=== PATIENT | female | born 1940 | race Caucasian/White ===

== ENCOUNTER 2021-09-10 16:58 | Emergency (ER) | payer MEDICARE, SELFPAY ==
[2021-09-10 17:07] VITALS: BP 108/67; PULSE 84; RESP 16; TEMP 36.2; O2SAT 98
[2021-09-10 17:19] VITALS: BP 108/67; PULSE 84; RESP 16; TEMP 36.2; O2SAT 98
--- NOTE | 2021-09-10 17:44 | ED.SKABFB ---
HPI - Skin/Abscess/Foreign Bdy General Chief complaint: Skin/Abscess/Foreign Body Stated complaint: wound Source: patient and RN notes reviewed Limitations: no limitations History of Present Illness HPI narrative: The patient, on several routine meds, presents with 2 issues. Patient states she has a 1 day history of urinary malodor, frequency, urgency and dysuria-like prior UTIs she gets several times a year.. Also patient has noticed some eruption with redness and itch from her gluteal crease to her perineum. SHe comments that she is spending more time in a chair on a doughnut cushion with incontinence undergarment, due to recent wrist fracture that is limiting her walking. No fever, abscess/induration, streaking; no hematuria, abdominal pain, increased LBP. Related Data Home Medications Medication Instructions Recorded Confirmed Apresoline 09/10/21 Ativan 09/10/21 Bentyl 09/10/21 Concho 09/10/21 Pepcid 09/10/21 Prozac 09/10/21 Synthroid 09/10/21 Voltaren 09/10/21 amlodipine 09/10/21 aspirin 09/10/21 gabapentin 09/10/21 hydrochlorothiazide 09/10/21 lisinopril 09/10/21 meloxicam 09/10/21 simvastatin 09/10/21 Allergies Allergy/AdvReac Type Severity Reaction Status Date / Time atorvastatin [From Lipitor] Allergy Muscle Pain Verified 09/10/21 17:16 celecoxib [From Celebrex] Allergy Hives Verified 09/10/21 17:16 cortisone Allergy Hives Verified 09/10/21 17:16 furosemide [From Lasix] Allergy Swelling Verified 09/10/21 17:16 latex Allergy Muscle Pain Verified 09/10/21 17:16 methylprednisolone Allergy Rash Verified 09/10/21 17:16 prednisone Allergy Unknown Verified 09/10/21 17:16 Sulfa (Sulfonamide Allergy Hives Verified 09/10/21 17:16 Antibiotics) cephalexin [From Keflex] AdvReac Diarrhea Verified 09/10/21 17:16 ciprofloxacin [From Cipro] AdvReac Diarrhea Verified 09/10/21 17:16 Review of Systems Review of Systems: General/Constitutional: No weight loss,fever Eyes: N0: Redness,discharge Ears/Nose/Throat: No: Epistaxis,ear discharge Respiratory: Denies: Hemoptysis Gastrointestinal: No Vomiting, Bleeding-rectal Skin: No Lumps, REPORTS eruption Neurologic: No Focal Weakness,Sz Hematologic: Denies: Petechiae/Purpura Psychiatric: No: Suicida ideationl All Other Systems: Reviewed and Negative PMFSH Comments At time of signature, agree with nursing past medical, surgical, social and family history. There is no relevant family history pertinent to the presenting complaint Exam Narrative: General Appearance: aged appearing, Conjunctiva clear Ears: External ear normal Nose: Normal nose Mouth/Throat: Normal appearing, Normal lips Neck: Supple Respiratory: Airway patent, No respiratory distress Abdomen: Soft, Non-tender, Musculoskeletal: Left forearm/wrist in cast Skin: Warm, minimally tender, pink inflamed occ excoriated gluteal and perineum skin Neurological: A&O x3, CN II-X intact Psychiatric: Normal mood, Normal affect Course Vital Signs Vital signs: Vital Signs Temperature 97.2 F L 09/10/21 17:07 Pulse Rate 84 09/10/21 17:07 Respiratory Rate 16 09/10/21 17:07 Blood Pressure 108/67 09/10/21 17:07 Pulse Oximetry 98 09/10/21 17:07 Temperature 97.2 F L 09/10/21 17:19 Pulse Rate 84 09/10/21 17:19 Respiratory Rate 16 09/10/21 17:19 Blood Pressure 108/67 09/10/21 17:19 Pulse Oximetry 98 09/10/21 17:19 MDM - Skin/Abscess/Foreign Bdy Lab Data Labs: Urine Glucose Negative Reference Range: Negative Urine Bilirubin Negative Reference Range: Negative Urine Ketone Negative Reference Range: Negative Urine Specific [place] 1.015 Reference Range:1.001-1.035
== END 2021-09-10 17:45 | disposition home or self-care (01) ==
PROVIDERS: Emergency Provider Emergency Medicine
DX: N30.90 Cystitis, unspecified without hematuria (principal); L30.4 Erythema intertrigo; I10 Essential (primary) hypertension; M19.90 Unspecified osteoarthritis, unspecified site
CPT/HCPCS: 81003; 87077; 87086; 87186; 99213; G0463

== ENCOUNTER 2023-03-08 13:33 | Inpatient (IN) | payer MEDICARE, SELFPAY ==
[2023-03-08] VITALS (10 sets, daily range): BP systolic 111–143; BP diastolic 50–101; PULSE 57–73; RESP 12–20; TEMP 36.6–37.3; O2SAT 96–100; BMI 27.6
--- NOTE | ~2023-03-08 | XR_ITS ---
Portable chest x-ray Comparison: None Clinical History: Covid, cough, weakness Findings: Lungs are clear, without focal consolidation or pleural effusion. Cardiomediastinal silho uette is unremarkable. Bones and soft tissues are unremarkable. Impression: Clear lungs. Reviewed, dictated and finalized at location . Impression: Clear lungs.
--- NOTE | ~2023-03-08 | CT_ITS ---
EXAMINATION: CT brain wo con DATE: 03/13/2023 08:18 INDICATION: Stroke. Hyponatremia. TECHNIQUE: Computed tomography (CT) of the head was performed without intravenous contrast. The mA wa s adjusted according to patient size. Iterative reconstruction technique was employed. The dose-lengt h product was 605.33 mGy-cm. COMPARISON: None FINDINGS: There are scattered areas of low attenuation in the cerebral white matter and prakash. There i s no intracranial hemorrhage, acute infarction, or abnormal intracranial mass lesion. The ventricles are normal in size. There is mucosal thickening in the paranasal sinuses. There are likely changes of right ocular lens replacement surgery. The mastoid air cells are normal. IMPRESSION: 1. Low attenuation in the prakash, which may be seen with chronic small vessel ischemic disease and/or o smotic demyelination. Consider brain MRI. 2. Moderate nonspecific cerebral white matter disease, which likely represents chronic small vessel i schemic disease. Reviewed, dictated and finalized at location A. IMPRESSION: 1. Low attenuation in the prakash, which may be seen with chronic small vessel isc hemic disease and/or osmotic demyelination. Consider brain MRI. 2. Moderate nonspecific cerebral white matter disease, which likely represents chronic small vessel ischemic disease.
--- NOTE | ~2023-03-08 | MR_ITS ---
EXAMINATION: MR brain/brain stem wo/w con DATE: 03/13/2023 18:18 INDICATION: Osmotic demyelination. Hyponatremia. TECHNIQUE: Magnetic resonance imaging (MRI) of the brain and brainstem was performed without and with 14 mL MultiHance intravenous contrast. COMPARISON: Head CT 03/13/2023 FINDINGS: There are scattered areas of nonspecific increased T2-weighted signal intensity in the cere bral white matter. There is mild increased T2-weighted signal intensity in the prakash that is not out o f proportion to the cerebral white matter disease and does not spare the corticospinal tracts. There is no intracranial hemorrhage, acute infarction, or abnormal intracranial mass lesion. The ventricles are normal in size. There is mucosal thickening in the paranasal sinuses. There are likely changes o f right ocular lens replacement surgery. The mastoid air cells are normal. IMPRESSION: 1. Moderate nonspecific cerebral white matter disease and pontine disease, which likely represents ch ronic small vessel ischemic disease. Reviewed, dictated and finalized at location E. IMPRESSION: 1. Moderate nonspecific cerebral white matter disease and pontine disease, whic h likely represents chronic small vessel ischemic disease.
--- NOTE | 2023-03-08 13:52 | ECG_ITS ---
Measurements Intervals [place] Rate: 60 P: 55 DE: 207 QRS: -38 QRSD: 136 T: 50 QT: 466 QTc: 468 Interpretive Statements SINUS RHYTHM LEFT AXIS DEVIATION LEFT BUNDLE BRANCH BLOCK ABNORMAL ECG NO PREVIOUS ECG AVAILABLE FOR COMPARISON Electronically Signed On 03-09-2023 16:49:25 CDT by Vimal Bearden M.D.
[2023-03-08 14:50] LABS: Basophils Percent Auto 0.7 % (0.2-1.2); Eosinophils Percent Auto 0.4 % (0-4.4); Hematocrit 33.2 % (37.0-47.0); Hemoglobin 11.3 g/dL (12.0-15.0); Immature Granulocyte Absolute 0.01 K/mm3 (0.00-0.031); Immature Granulocyte Percent A 0.4 % (0-0.5); Lymphocytes Absolute Auto 0.96 K/mm3 (0.9-3.2); Mean Corpuscular Hemoglobin 29.4 pg (26-34); Mean Corpuscular Volume 86.2 fl (80-100); Mean Platelet Volume 8.7 fl (7.4-10.4); Monocytes Absolute Auto 0.3 K/mm3 (0.1-0.6); Monocytes Percent Auto 11.3 % (2.6-8.5); Neutrophils Absolute Auto 1.4 K/mm3 (1.3-6.7); Neutrophils Percent Auto 52.2 % (45.5-73.1); Platelet Count Result 285 k/mm3 (150-375); Red Blood Count 3.85 M/mm3 (4.2-5.4); Red Cell Distribution Width 14.7 % (11.5-14.5); White Blood Count 2.7 K/mm3 (4.5-10.0)
--- NOTE | 2023-03-08 15:31 | ED.GENADULT ---
HPI - General Adult General Chief complaint: Weakness Stated complaint: weakness, incontinence History of Present Illness HPI narrative: 82-year-old female presented to the emergency department for evaluation of increased generalized weakness and increased urinary symptoms. Approximately 3 weeks ago patient was admitted to [facility] for sepsis hypokalemia and urinary tract infection. Patient became very deconditioned and needed to be admitted to [facility] for rehab. Family states he was there for approximately 2 weeks and was discharged yesterday. Family feels that the patient was still feeling too weak when she was discharged. Patient states she is still having symptoms of dysuria that are intermittent. Patient denies any nausea vomiting or abdominal pain but states she has had decreased p.o. intake. Related Data Home Medications Medication Instructions Recorded Confirmed amlodipine 10 mg tablet mg 03/08/23 aspirin 81 mg chewable tablet 81 mg PO DAILY 03/08/23 03/08/23 calcium carbonate 200 mg calcium 200 mg PO PRN 03/08/23 03/08/23 (500 mg) chewable tablet (Antacid (calcium carbonate)) cholecalciferol (vitamin D3) 25 25 mcg PO DAILY 03/08/23 03/08/23 mcg (1,000 unit) capsule (Vitamin D3) dicyclomine 10 mg capsule 10 mg PO QID 03/08/23 03/08/23 famotidine 40 mg tablet mg 03/08/23 ferrous sulfate 325 mg (65 mg 325 mg PO BID 03/08/23 03/08/23 iron) tablet gabapentin 300 mg capsule mg 03/08/23 03/08/23 hydralazine 25 mg tablet mg 03/08/23 hydrocodone 10 mg-acetaminophen tablet 03/08/23 325 mg tablet levothyroxine 137 mcg tablet mcg 03/08/23 lisinopril 20 mg tablet mg 03/08/23 nitroglycerin 400 mcg/spray 1 spray translingual ONCE 03/08/23 03/08/23 translingual aerosol nystatin 100,000 unit/gram topical topical 03/08/23 cream sertraline 25 mg tablet 25 mg PO DAILY 03/08/23 03/08/23 simvastatin 40 mg tablet mg 03/08/23 Allergies Allergy/AdvReac Type Severity Reaction Status Date / Time atorvastatin [From Lipitor] Allergy Muscle Pain Verified 03/08/23 17:59 celecoxib [From Celebrex] Allergy Hives Verified 03/08/23 17:59 cortisone Allergy Hives Verified 03/08/23 17:59 furosemide [From Lasix] Allergy Swelling Verified 03/08/23 17:59 latex Allergy Muscle Pain Verified 03/08/23 17:59 methylprednisolone Allergy Rash Verified 03/08/23 17:59 prednisone Allergy Unknown Verified 03/08/23 17:59 Sulfa (Sulfonamide Allergy Hives Verified 03/08/23 17:59 Antibiotics) cephalexin [From Keflex] AdvReac Diarrhea Verified 03/08/23 17:59 ciprofloxacin [From Cipro] AdvReac Diarrhea Verified 03/08/23 17:59 Review of Systems Review of Systems: All systems reviewed & are unremarkable except as noted in HPI and below PMFSH Past Medical History Medical History (Updated 03/08/23 @ 17:51 by Abbey Campos PA-C) Dyslipidemia Gastroesophageal reflux disease Hypertension Hypothyroidism Social History Social History Smoking status: Former smoker Alcohol intake: never Substance use: never Lack of Transportation: No Lack of Food: Never True Current Housing: I Have Housing Concerned About Future Housing: No Difficulty Paying Gas/Electric Bills: No Difficulty Paying for Meds: No Currently Unemployed: No Education: High School Diploma/GED Difficulty w/ Childcare or Family Care: No Spiritual care concerns: No Exam Narrative: APPEARANCE: Ill-appearing HEAD: normocephalic, atraumatic. EYES: PERRLA/EOMI, conjunctivae clear. NOSE: Normal no drainage NECK: Supple. No adenopathy, no masses. RESPIRATORY: Airway patent, respirations nonlabored. Clear to auscultation bilaterally, no rales, rhonchi, wheezing. CARDIOVASCULAR: Regular rate and rhythm without murmurs rubs or gallops. ABDOMINAL: Soft, nontender, nondistended, normal bowel sounds MUSCULOSKELETAL: Moves all extremities. Strength/ROM intact, No edema, No calf tenderness. NEURO: Alert. Cranial nerves II
[2023-03-08 15:37] LABS: Appearance Urine Cloudy (Clear); Bacteria Urine 4+ /hpf; Bilirubin Urine Negative (Negative); Blood Urine Negative (Negative); Color Urine Yellow (Yellow); Glucose Urine UA Negative (Negative); Ketones Urine Negative (Negative); Leukocyte Esterase Ur Trace LEU/UL (Negative); Nitrate Urine Negative (Negative); Non Pathogenic Casts 0-2; Protein Urine Negative (Negative); RBC Urine 0-2 /hpf (0-2); Squamous Epithelial Cell Urine None seen /hpf (Few); Urobilinogen Urine 0.2 mg/dL (<2.0); WBC Urine 0-5 /hpf
[2023-03-08 15:40] LABS: Add Urine Microscopic? YES
[2023-03-08 16:01] LABS: Alanine Aminotransferase 20 U/L (6-35); Albumin Level 3.6 g/dL (3.5-5.1); Alkaline Phosphatase 77 U/L (38-126); Anion Gap 5 mmol/L (8-16); Aspartate Amino Transferase 34 U/L (14-36); Bilirubin,Total 0.5 mg/dL (0.2-1.3); Blood Urea Nitrogen 12 mg/dL (7-17); Carbon Dioxide 28 mmol/L (22-30); Chloride 89 mmol/L (98-107); Estimated CRCL calculation 76 ml/min; Estimated Glomerular Filt Rate > 60; Glucose 104 mg/dL (65-110); Potassium 3.9 mmol/L (3.4-5.0); Sodium 122 mmol/L (137-145)
[2023-03-08 16:23] LABS: Influenza A QL RT-PCR Negative (Negative); Influenza B QL RT-PCR Negative (Negative); RSV RNA, RT-PCR Negative (Negative); SARS-CoV-2 RNA PCR Positive
[2023-03-08] MEDS: SODIUM CHLORIDE 0.9% IV 1,000 ML 100 ML IV CONT (17:52)
--- NOTE | 2023-03-08 18:00 | PM.IMHP ---
H&P: HPI History of Present Illness Date/Time: 03/08/23 18:00 Chief Complaint: Weakness. Narrative: This is an 82-year-old female with hypertension, hyperlipidemia, hypothyroidism, anemia, and GERD who presented to the emergency department from home for evaluation of weakness. Patient provides the following history. Her daughter Nohemy provides additional information with the patient's permission. She was hospitalized at [facility] several weeks ago with urosepsis and she was discharged to [facility] for rehab. She was discharged to the care of her daughter yesterday and Nohemy feels as though the patient was sent home from rehab to [place]. The patient typically ambulates with a walker but has not even wanted to try to get up due to generalized malaise and weakness. She has been eating okay but has not been drinking much in the way of fluids. She still has a bit of dysuria but nothing significant. Over the last several days she has developed a headache, a mild nonproductive cough, and she has been having body aches. She denies fever, neck ache, sinus congestion, sore throat, chest pain, shortness a breath, vomiting, and diarrhea. Vital signs were stable on arrival to the emergency department. Labs were significant for a WBC count of 2.7, hemoglobin 11.3, sodium 122, potassium 3.9, chloride 89, BUN 12, creatinine 0.50, normal LFTs. Urine was positive for leukocyte esterase, 0 to 5 WBC, and 4+ bacteria. She was negative for influenza and RSV but did test positive for SARS-CoV-2 by PCR. She is being admitted in this setting for further treatment and evaluation of hyponatremia and supportive care for COVID. Review of Systems Review of Systems: Twelve systems were reviewed. She has not had a documented fever. No focal weakness or paresthesias. No facial droop or difficulty speaking or swallowing. She denies chest pain pleuritic pain. No nausea or sweats. Denies diarrhea. Except as documented, all other systems were reviewed and are negative. [facility] Past Medical History Medical History (Updated 03/08/23 @ 21:54 by Abbey Campos PA-C) Dyslipidemia Gastroesophageal reflux disease Hypertension Hypothyroidism Surgical History Surgical History (Updated 03/08/23 @ 21:46 by Abbey Campos PA-C) History of appendectomy History of cholecystectomy History of hysterectomy Family History Family History (Updated 03/08/23 @ 21:46 by Abbey Campos PA-C) Other Hypertension Social History Social History (Updated 03/08/23 @ 21:46 by Abbey Campos PA-C) Social History: Surrogate medical decision maker: Nohemy Carbajal, daughter. Code status: Full code. Smoking status: Former smoker Alcohol intake: never Substance use: never Lack of Transportation: No Lack of Food: Never True Current Housing: I Have Housing Concerned About Future Housing: No Difficulty Paying Gas/Electric Bills: No Difficulty Paying for Meds: No Currently Unemployed: No Education: High School Diploma/GED Difficulty w/ Childcare or Family Care: No Additional living arrangements comments: Currently staying with daughter Nohemy. Spiritual care concerns: No Meds Home Medications and Allergies Home Medications Medication Instructions Recorded Confirmed Type acetaminophen 650 mg tablet 650 mg PO Q4H PRN Pain (Scale 03/08/23 03/08/23 History Score 1-3) amlodipine 10 mg tablet 10 mg DAILY 03/08/23 03/08/23 History aspirin 81 mg chewable tablet 81 mg PO DAILY 03/08/23 03/08/23 History calcium carbonate 200 mg calcium 200 mg PO TID PRN Indigestion 03/08/23 03/08/23 History (500 mg) chewable tablet (Antacid (calcium carbonate)) cholecalciferol (vitamin D3) 25 50 mcg PO DAILY 03/08/23 03/08/23 History mcg (1,000 unit) capsule (Vitamin D3) clobetasol 0.05 % topical cream 1 applic topical BID 03/08/23 03/08/23 History dicyclomine 10 mg capsule 10 mg PO QID 03/08/23 03/08/23 History fa
--- NOTE | 2023-03-08 19:47 | ADMGEN ---
This patient, Sharon Chao, was admitted to Medical Room 245-. Patient/family oriented to hospital policies and general routines including ID bracelet, bed and alarms, visiting hours, pain management, procedures, bathroom and other care routines, personal items, smoking policy, room service/diet, and visiting hours. Information on how to activate the Rapid Response Team has been discussed. Patient/Family are encouraged to report perceived risks to care and to ask questions if they do not understand what they are told or what they should do.
[2023-03-08 22:16] LABS: Anion Gap 5 mmol/L (8-16); Blood Urea Nitrogen 10 mg/dL (7-17); Calcium 8.1 mg/dL (8.4-10.2); Carbon Dioxide 29 mmol/L (22-30); Chloride 90 mmol/L (98-107); Estimated CRCL calculation 75 ml/min; Estimated Glomerular Filt Rate > 60; Glucose 87 mg/dL (65-110); Potassium 4.1 mmol/L (3.4-5.0); Sodium 124 mmol/L (137-145)
[2023-03-08 22:19] LABS: CRP 1.3 mg/dL (<1.0)
[2023-03-08] MEDS: lisinopriL 20 MG TABLET PO (23:38)
[2023-03-08] MEDS: FAMOTIDINE 20 MG TABLET 40 MG PO (23:38)
[2023-03-08] MEDS: hydrALAZINE HCL 25 MG TABLET PO (23:38)
[2023-03-08] MEDS: GABAPENTIN 300 MG CAPSULE PO (23:38)
[2023-03-08] MEDS: DICYCLOMINE HCL 10 MG CAPSULE PO (23:38)
[2023-03-08] MEDS: SERTRALINE HCL 25 MG TABLET PO (23:39)
[2023-03-08] MEDS: MICONAZOLE NITRATE 2% CREAM 30 GM TUBE 1 APPLIC TOPICAL (23:39)
[2023-03-08] MEDS: HYDROcodone/acetaminophen (*CRX) 10-325 MG TABLET 1 TAB PO (23:42)
[2023-03-09] VITALS (13 sets, daily range): BP systolic 94–128; BP diastolic 48–67; PULSE 56–86; RESP 12–18; TEMP 36.2–36.9; O2SAT 96–100
[2023-03-09 00:03] LABS: Creatinine Urine 20.9 mg/dL; Urea Random Urine 207 MG/DL
[2023-03-09 00:06] LABS: Sodium Urine Random 108 meq/L
[2023-03-09] MEDS: SODIUM CHLORIDE 0.9% IV 1,000 ML 75 ML IV CONT ×2 (04:45→18:42)
[2023-03-09] MEDS: LEVOTHYROXINE SODIUM 25 MCG TABLET PO (04:46)
[2023-03-09] MEDS: LEVOTHYROXINE SODIUM 112 MCG TABLET PO (04:46)
[2023-03-09 06:33] LABS: Hematocrit 28.7 % (37.0-47.0); Hemoglobin 9.5 g/dL (12.0-15.0); Mean Corpuscular HGB Conc 33.1 g/dl (32-36); Mean Corpuscular Hemoglobin 28.3 pg (26-34); Mean Corpuscular Volume 85.4 fl (80-100); Mean Platelet Volume 9.2 fl (7.4-10.4); Platelet Count Result 254 k/mm3 (150-375); Red Blood Count 3.36 M/mm3 (4.2-5.4); Red Cell Distribution Width 14.6 % (11.5-14.5); White Blood Count 2.5 K/mm3 (4.5-10.0)
[2023-03-09 06:40] LABS: Anion Gap 4 mmol/L (8-16); Blood Urea Nitrogen 7 mg/dL (7-17); Calcium 7.7 mg/dL (8.4-10.2); Carbon Dioxide 28 mmol/L (22-30); Chloride 93 mmol/L (98-107); Estimated CRCL calculation 75 ml/min; Estimated Glomerular Filt Rate > 60; Glucose 82 mg/dL (65-110); Potassium 4.2 mmol/L (3.4-5.0); Sodium 125 mmol/L (137-145)
[2023-03-09] MEDS: SIMVASTATIN 20 MG TABLET 40 MG PO (10:22)
[2023-03-09] MEDS: FAMOTIDINE 20 MG TABLET 40 MG PO ×2 (10:22→17:14)
[2023-03-09] MEDS: CHOLECALCIFEROL 1,000 UNITS TABLET 2000 UNITS PO (10:22)
[2023-03-09] MEDS: ASPIRIN 81 MG CHEWABLE TABLET PO (10:22)
[2023-03-09] MEDS: lisinopriL 20 MG TABLET PO ×2 (10:23→17:15)
[2023-03-09] MEDS: SODIUM CHLORIDE 1 GM TABLET PO (10:23)
[2023-03-09] MEDS: GABAPENTIN 300 MG CAPSULE PO ×3 (10:23→17:14)
[2023-03-09] MEDS: hydrALAZINE HCL 25 MG TABLET PO (10:23)
[2023-03-09] MEDS: FERROUS SULFATE 324 MG TABLET PO ×2 (10:23→17:13)
[2023-03-09] MEDS: DICYCLOMINE HCL 10 MG CAPSULE PO ×4 (10:23→20:09)
[2023-03-09] MEDS: CLOBETASOL PROPIONATE 0.05% CREAM 15 GM 1 APPLIC TOPICAL ×2 (10:25→17:13)
[2023-03-09] MEDS: MICONAZOLE NITRATE 2% CREAM 30 GM TUBE 1 APPLIC TOPICAL ×2 (10:25→17:14)
[2023-03-09] MEDS: amLODIPine BESYLATE 5 MG TABLET 10 MG BY MOUTH (10:27)
[2023-03-09] MEDS: HYDROcodone/acetaminophen (*CRX) 10-325 MG TABLET 1 TAB PO ×3 (10:35→20:09)
--- NOTE | 2023-03-09 12:00 | PM.IMPN ---
Progress Note: A&P Assessment and Plan (1) Hyponatremia: Code(s): E87.1 - Hypo-osmolality and hyponatremia Status: Acute Assessment and Plan: She reportedly had problems with hyponatremia when hospitalized at [place] last month and was started on sodium tablets. She looks dry on exam and will be cautiously hydrated with close monitoring of volume status and electrolytes. TSH 3.1, urine and serum osmolalities pending FENa 2.1 indicating a intrinsic cause. Patient recieving IV fluids. Trend Sodium (2) COVID: Code(s): U07.1 - COVID-19 Status: Acute Assessment and Plan: Supportive care. She has no oxygen requirement thus no indication for dexamethasone or remdesivir. (3) Generalized weakness: Code(s): R53.1 - Weakness Status: Acute Assessment and Plan: Secondary to a combination of the above. No focal findings on exam. PT/OT consulted. (4) Hypertension: Code(s): I10 - Essential (primary) hypertension Status: Acute Assessment and Plan: Blood pressures were reviewed and they are stable. Her antihypertensives will be reviewed and resumed as appropriate. (5) Abnormal urinalysis: Code(s): R82.90 - Unspecified abnormal findings in urine Status: Acute Assessment and Plan: UA shows trace leukocyte esterase and 4+ bacteria, 0-5 white blood cells were noted on microscopy. Hold on antibiotics for now pending urine culture. Subjective Date/time seen: 03/09/23 12:00 Interval history: Patient up to chair doing well. She has no complaints at this time. Awaiting urine culture and treating hyponatremia. Objective Data Vital Signs Vital Signs: Vital Signs - 24 hr 03/08/23 13:51 03/08/23 15:37 03/08/23 17:01 Temperature 99.1 F Pulse Rate 64 57 L 63 Respiratory Rate 18 13 14 Blood Pressure 122/53 L 111/94 H 143/54 H Pulse Oximetry 98 100 96 Oxygen Delivery Room Air 03/08/23 17:46 03/08/23 18:02 03/08/23 18:16 Temperature Pulse Rate 62 73 72 Respiratory Rate 12 12 19 Blood Pressure 143/60 H 131/101 H 136/72 Pulse Oximetry 97 96 Oxygen Delivery 03/08/23 18:31 03/08/23 19:35 03/08/23 20:00 Temperature 98.5 F Pulse Rate 68 64 61 Respiratory Rate 19 17 Blood Pressure 135/50 L 115/65 Pulse Oximetry 99 98 Oxygen Delivery 03/08/23 20:00 03/08/23 23:36 03/09/23 00:00 Temperature 97.8 F Pulse Rate 67 64 Respiratory Rate 20 Blood Pressure 122/57 L Pulse Oximetry 100 Oxygen Delivery Room Air 03/09/23 04:00 03/09/23 05:36 03/09/23 08:00 Temperature 98.2 F Pulse Rate 59 L 61 60 Respiratory Rate 18 Blood Pressure 114/51 L Pulse Oximetry 99 Oxygen Delivery 03/09/23 08:22 03/09/23 10:26 03/09/23 10:25 Temperature Pulse Rate 73 Respiratory Rate 14 Blood Pressure 115/60 Pulse Oximetry 100 Oxygen Delivery Room Air Room Air Intake/Output Intake/Output: Intake & Output 03/06/23 03/07/23 03/08/23 03/09/23 23:59 23:59 23:59 23:59 Intake Total 1450 Output Total 1950 750 Balance -1950 700 Meds/Results Medications: Active Medications Generic Name Dose Route Start Last Admin Trade Name Freq PRN Reason Stop Dose Admin Acetaminophen 650 mg 03/08/23 21:51 Acetaminophen 325 Mg Tablet PO Q6H PRN Mild Pain (1-3) or Fever Hydrocodone Bitart/Acetaminophen 1 tab 03/08/23 21:55 03/09/23 10:35 Hydrocodone/Acetaminophen (*Crx) 10-325 Mg Tablet PO 1 tab TID PRN Administration Pain (Scale Score 4-6) Amlodipine Besylate 10 mg 03/09/23 09:00 03/09/23 10:27 Amlodipine Besylate 5 Mg Tablet BY MOUTH 10 mg DAILY ANNY Administration Aspirin 81 mg 03/09/23 09:00 03/09/23 10:22 Aspirin 81 Mg Chewable Tablet PO 81 mg DAILY ANNY Administration Calcium Carbonate 200 mg 03/08/23 21:55 Calcium Carbonate (Tums) 500 Mg (200 Mg Elemental)
[2023-03-09 13:16] LABS: Sodium 123 mmol/L (137-145)
[2023-03-09] MEDS: polyethylene glycoL 3350 17 GM POWD.PACK PO (13:17)
--- NOTE | 2023-03-09 14:01 | PCCCNOTE ---
On 03/09/23, the student, [Amie Bacon ], provided care and completed [facility] documentation on this patient. I have reviewed the student's documentation and agree with the findings.
[2023-03-09 19:16] LABS: Sodium 125 mmol/L (137-145)
[2023-03-09] MEDS: SERTRALINE HCL 25 MG TABLET PO (20:09)
[2023-03-10] VITALS (14 sets, daily range): BP systolic 103–141; BP diastolic 49–73; PULSE 53–72; RESP 14–20; TEMP 36.3–36.6; O2SAT 96–100
[2023-03-10 01:24] LABS: Sodium 126 mmol/L (137-145)
[2023-03-10 05:48] LABS: Basophils Percent Auto 0.3 % (0.2-1.2); Eosinophils Absolute Auto 0.1 K/mm3 (0-0.3); Eosinophils Percent Auto 2.1 % (0-4.4); Hematocrit 29.8 % (37.0-47.0); Hemoglobin 9.7 g/dL (12.0-15.0); Immature Granulocyte Absolute 0.01 K/mm3 (0.00-0.031); Immature Granulocyte Percent A 0.3 % (0-0.5); Lymphocytes Absolute Auto 1.11 K/mm3 (0.9-3.2); Mean Corpuscular HGB Conc 32.6 g/dl (32-36); Mean Corpuscular Hemoglobin 28.7 pg (26-34); Mean Corpuscular Volume 88.2 fl (80-100); Mean Platelet Volume 9.2 fl (7.4-10.4); Monocytes Absolute Auto 0.3 K/mm3 (0.1-0.6); Monocytes Percent Auto 8.9 % (2.6-8.5); Neutrophils Absolute Auto 1.8 K/mm3 (1.3-6.7); Neutrophils Percent Auto 54.4 % (45.5-73.1); Platelet Count Result 236 k/mm3 (150-375); Red Blood Count 3.38 M/mm3 (4.2-5.4); Red Cell Distribution Width 14.8 % (11.5-14.5); White Blood Count 3.3 K/mm3 (4.5-10.0)
[2023-03-10 05:54] LABS: Alanine Aminotransferase 20 U/L (6-35); Albumin Level 3.3 g/dL (3.5-5.1); Alkaline Phosphatase 78 U/L (38-126); Anion Gap 4 mmol/L (8-16); Aspartate Amino Transferase 28 U/L (14-36); Bilirubin,Total 0.4 mg/dL (0.2-1.3); Blood Urea Nitrogen 5 mg/dL (7-17); Calcium 7.7 mg/dL (8.4-10.2); Carbon Dioxide 26 mmol/L (22-30); Chloride 97 mmol/L (98-107); Estimated CRCL calculation 75 ml/min; Estimated Glomerular Filt Rate > 60; Glucose 76 mg/dL (65-110); Sodium 127 mmol/L (137-145)
[2023-03-10] MEDS: LEVOTHYROXINE SODIUM 112 MCG TABLET PO (05:56)
[2023-03-10] MEDS: HYDROcodone/acetaminophen (*CRX) 10-325 MG TABLET 1 TAB PO ×2 (05:56→18:00)
[2023-03-10] MEDS: LEVOTHYROXINE SODIUM 25 MCG TABLET PO (05:56)
[2023-03-10] MEDS: SODIUM CHLORIDE 1 GM TABLET PO (08:14)
[2023-03-10] MEDS: DICYCLOMINE HCL 10 MG CAPSULE PO ×4 (08:14→21:58)
[2023-03-10] MEDS: lisinopriL 20 MG TABLET PO ×2 (08:14→17:55)
[2023-03-10] MEDS: FAMOTIDINE 20 MG TABLET 40 MG PO ×2 (08:14→17:55)
[2023-03-10] MEDS: FERROUS SULFATE 324 MG TABLET PO ×2 (08:14→17:55)
[2023-03-10] MEDS: CHOLECALCIFEROL 1,000 UNITS TABLET 2000 UNITS PO (08:14)
[2023-03-10] MEDS: ASPIRIN 81 MG CHEWABLE TABLET PO (08:14)
[2023-03-10] MEDS: GABAPENTIN 300 MG CAPSULE PO ×3 (08:15→17:55)
[2023-03-10] MEDS: amLODIPine BESYLATE 5 MG TABLET 10 MG BY MOUTH (08:17)
[2023-03-10] MEDS: SIMVASTATIN 20 MG TABLET 40 MG PO (08:18)
[2023-03-10] MEDS: hydrALAZINE HCL 25 MG TABLET PO ×3 (08:18→17:55)
[2023-03-10] MEDS: MICONAZOLE NITRATE 2% CREAM 30 GM TUBE 1 APPLIC TOPICAL ×2 (08:18→17:55)
[2023-03-10] MEDS: CLOBETASOL PROPIONATE 0.05% CREAM 15 GM 1 APPLIC TOPICAL ×2 (08:18→17:55)
[2023-03-10] MEDS: SODIUM CHLORIDE 0.9% IV 1,000 ML 75 ML IV CONT ×2 (08:18→22:00)
[2023-03-10] MEDS: polyethylene glycoL 3350 17 GM POWD.PACK PO (08:19)
[2023-03-10] MEDS: BISACODYL 10 MG SUPPOSITORY RECTAL (11:26)
--- NOTE | 2023-03-10 15:16 | PM.IMPN ---
Progress Note: A&P Assessment and Plan (1) Hyponatremia: Code(s): E87.1 - Hypo-osmolality and hyponatremia Status: Acute Assessment and Plan: Acute versus acute on chronic hyponatremia. She reportedly had problems with hyponatremia when hospitalized at [place] last month and was started on sodium tablets. She looks dry on exam and will be cautiously hydrated with close monitoring of volume status and electrolytes. TSH 3.1, urine sodium 108 and serum osmolality pending Patient receiving IV fluids. sodium chloride tablet 1 gram daily continued. Patient was taking this upon admission. Trend sodium- gradually increasing. Check am cortisol and ACTH. Patient does take chronic opioid medications. Documented oral intake is not excessive, ~1800 mL/24 hours. Continue to monitor I/O and consider fluid restriction if intake appears >2L (2) COVID: Code(s): U07.1 - COVID-19 Status: Acute Assessment and Plan: Supportive care. She has no oxygen requirement thus no indication for dexamethasone or remdesivir. She reports possible exposure in the last week, but is vague in her answers regarding this. She endorses prior COVID19 vaccination, but is unsure of her booster status. Recommend COVID19 booster if not had in the past 6 month. (3) Generalized weakness: Code(s): R53.1 - Weakness Status: Acute Assessment and Plan: Secondary to a combination of the above. No focal findings on exam. PT/OT consulted. Likely secondary to hyponatremia. (4) Hypertension: Code(s): I10 - Essential (primary) hypertension Status: Chronic Assessment and Plan: Blood pressures stable Continue amlodipine, hydralazine, and lisinopril as BP tolerates. (5) Acute cystitis without hematuria: Code(s): N30.00 - Acute cystitis without hematuria Status: Acute Assessment and Plan: UA shows trace leukocyte esterase and 4+ bacteria, 0-5 white blood cells were noted on microscopy. Patient with acute urinary retention and suprapubic pain on exam. Urine culture with pseumomonas aeruginosa growth >100,000 CFU Cipro allergy noted and family reports reaction is diarrhea only. No hives, pruritus, or anaphylaxis with prior use. Start Levaquin 750 mg PO daily x 5 days for acute cystitis. (6) Acute urinary retention: Code(s): R33.8 - Other retention of urine Status: Acute Assessment and Plan: bladder scan >1300 mL on admission with patient c/o pain and tenderness on exam. Denies prior history of urinary retention. Most likely associated with acute UTI. Indwelling stock catheter continued. Voiding trial in 24-48 hours after antibiotic therapy initiated. Time Spent With Patient Time with patient: 25 - 35 minutes Subjective Date/time seen: 03/10/23 15:16 She has a cough, but no sputum, SOB or chest pain. She is tired and feels constipated. No unilateral extremity weakness, speech changes, vision changes, CLAY, abd pain, N/V, and flank pain. Stock catheter was placed last night for acute retention. She reports never having issues with her urination at all. Review of Systems Review of Systems: All systems reviewed & are unremarkable except as noted in HPI and below Exam Narrative: General: No acute distress. Lying in bed. Nontoxic appearing. HEENT: Normocephalic, atraumatic. PERRL, EOMI. Sclera anicteric. Moist mucous membranes. Neck: Supple. No JVD. Respiratory: Respirations are nonlabored and she is speaking in full sentences. Lungs are clear to auscultation bilaterally. Cardiovascular: Regular rate and rhythm with S1-S2. No murmur, gallop or rub. Gastrointestinal: Abdomen is soft, obese and nondistended with positive bowel sounds. There is some bruising throughout the lower abdomen, presumably from heparin injections with her recent hospitalization. Mildly tender to palpation in the suprapub
[2023-03-10] MEDS: SENNA/DOCUSATE SODIUM TABLET 2 TAB PO (21:58)
[2023-03-10] MEDS: SERTRALINE HCL 25 MG TABLET PO (21:58)
[2023-03-11] VITALS (13 sets, daily range): BP systolic 115–133; BP diastolic 51–67; PULSE 59–75; RESP 18–20; TEMP 36.1–37.1; O2SAT 93–99
--- NOTE | 2023-03-11 | ECHO_ITS ---
Patient Info Name: Sharon Chao Age: 82 years : 1940 Gender: Female Ht: 65 in Wt: 165 lbs BSA: 1.87 m2 HR: 69 bpm BP: 134 / 52 mmHg Heart Rhythm: Sinus Rhythm Technical Quality: Fair Exam Date: 03/11/2023 1:34 PM Exam Location: [facility] Pulmonary Patient Status: Outpatient Admit Date: 03/08/2023 Staff Ordering Physician: Lindsay Stevens APRN President & Founder: Khadra Alfaro RDCS Attending Provider: Janice Almeida MD Referring Physician: Hilda ZIMMERMAN; Exam Type: CA echo doppler color flow Study Info Indications - abnormal ecg Complete two-dimensional, color flow and Doppler transthoracic echocardiogram is performed. Summary 1. Technically difficult study with limited views. 2. Left ventricular chamber dimension is normal. 3. Left ventricular systolic function is mildly reduced, estimated at 40-45%. 4. Left ventricular septal wall motion is abnormal with septal motion related to bundle branch block. 5. The left ventricular diastolic function is grade I diastolic dysfunction. 6. Right ventricular systolic function is normal. 7. There is mild mitral valve regurgitation. 8. There is mild tricuspid valve regurgitation. 9. There is moderate aortic atherosclerosis. 10. Normal inferior vena cava with >50% collapse upon inspiration consistent with normal right atrial pressure, 3 mmHg. Left Ventricle Left ventricular chamber dimension is normal. Left ventricular systolic function is mildly reduced, estimated at 40-45%. There is no increased left ventricular wall thickness. Left ventricular septal wall motion is abnormal with septal motion related to bundle branch block. The left ventricular diastolic function is grade I diastolic dysfunction. Right Ventricle Right ventricular chamber dimension is normal. Right ventricular systolic function is normal. Left Atria Left atrial chamber dimension is normal. Right Atria Right atrial chamber dimension is normal. Atrial Septum Intact interatrial septum visualized by color flow imaging. Aortic Valve The aortic valve is not well visualized. There is no aortic valve stenosis. There is no aortic valve regurgitation. There is moderate aortic valve calcification. Pulmonic Valve The pulmonic valve is not well visualized. Mitral Valve The mitral valve has thickened leaflets. There is mild mitral valve regurgitation. Tricuspid Valve There is mild tricuspid valve regurgitation. Pericardium/Pleural There is no pericardial effusion. Inferior Vena Cava Normal inferior vena cava with >50% collapse upon inspiration consistent with normal right atrial pressure, 3 mmHg. Aorta The aortic root size at the sinus of Valsalva is normal. There is moderate aortic atherosclerosis. Left Ventricular Outflow Tract Name Value Normal LVOT 2D LVOT Diameter 2.0 cm LVOT Doppler LVOT Peak Gradient 3 mmHg LVOT Mean Gradient 1 mmHg LVOT VTI 17 cm LVOT VTI/AV VTI Ratio 0.5 LVOT Stroke Volume 53 ml
[2023-03-11 05:34] LABS: Eosinophils Absolute Auto 0.1 K/mm3 (0-0.3); Eosinophils Percent Auto 1.3 % (0-4.4); Hematocrit 31.6 % (37.0-47.0); Hemoglobin 10.5 g/dL (12.0-15.0); Immature Granulocyte Absolute 0.01 K/mm3 (0.00-0.031); Immature Granulocyte Percent A 0.3 % (0-0.5); Lymphocytes Absolute Auto 1.01 K/mm3 (0.9-3.2); Lymphocytes Percent Auto 25.4 % (18.3-44.2); Mean Corpuscular HGB Conc 33.2 g/dl (32-36); Mean Corpuscular Hemoglobin 29.6 pg (26-34); Mean Platelet Volume 8.9 fl (7.4-10.4); Monocytes Absolute Auto 0.3 K/mm3 (0.1-0.6); Monocytes Percent Auto 7.8 % (2.6-8.5); Neutrophils Absolute Auto 2.6 K/mm3 (1.3-6.7); Neutrophils Percent Auto 65.2 % (45.5-73.1); Platelet Count Result 237 k/mm3 (150-375); Red Blood Count 3.55 M/mm3 (4.2-5.4); Red Cell Distribution Width 14.8 % (11.5-14.5)
[2023-03-11 05:50] LABS: Alanine Aminotransferase 19 U/L (6-35); Albumin Level 3.4 g/dL (3.5-5.1); Alkaline Phosphatase 88 U/L (38-126); Anion Gap 3 mmol/L (8-16); Aspartate Amino Transferase 27 U/L (14-36); Bilirubin,Total 0.5 mg/dL (0.2-1.3); Blood Urea Nitrogen 3 mg/dL (7-17); CRP 1.9 mg/dL (<1.0); Carbon Dioxide 29 mmol/L (22-30); Chloride 97 mmol/L (98-107); Estimated CRCL calculation 66 ml/min; Estimated Glomerular Filt Rate > 60; Glucose 81 mg/dL (65-110); Potassium 3.9 mmol/L (3.4-5.0); Sodium 129 mmol/L (137-145)
[2023-03-11] MEDS: LEVOTHYROXINE SODIUM 112 MCG TABLET PO (06:12)
[2023-03-11] MEDS: LEVOTHYROXINE SODIUM 25 MCG TABLET PO (06:12)
[2023-03-11 06:28] LABS: Procalcitonin < 0.0 ng/mL
[2023-03-11] MEDS: FAMOTIDINE 20 MG TABLET 40 MG PO ×2 (09:31→17:30)
[2023-03-11] MEDS: CHOLECALCIFEROL 1,000 UNITS TABLET 2000 UNITS PO (09:31)
[2023-03-11] MEDS: ASPIRIN 81 MG CHEWABLE TABLET PO (09:31)
[2023-03-11] MEDS: DICYCLOMINE HCL 10 MG CAPSULE PO ×4 (09:31→20:35)
[2023-03-11] MEDS: FERROUS SULFATE 324 MG TABLET PO ×2 (09:31→17:30)
[2023-03-11] MEDS: amLODIPine BESYLATE 5 MG TABLET 10 MG BY MOUTH (09:31)
[2023-03-11] MEDS: hydrALAZINE HCL 25 MG TABLET PO ×3 (09:32→17:30)
[2023-03-11] MEDS: SODIUM CHLORIDE 1 GM TABLET PO (09:32)
[2023-03-11] MEDS: SIMVASTATIN 20 MG TABLET 40 MG PO (09:32)
[2023-03-11] MEDS: levoFLOXacin 750 MG TABLET PO (09:32)
[2023-03-11] MEDS: polyethylene glycoL 3350 17 GM POWD.PACK PO (09:32)
[2023-03-11] MEDS: GABAPENTIN 300 MG CAPSULE PO ×3 (09:32→17:30)
[2023-03-11] MEDS: lisinopriL 20 MG TABLET PO ×2 (09:32→17:30)
[2023-03-11] MEDS: CLOBETASOL PROPIONATE 0.05% CREAM 15 GM 1 APPLIC TOPICAL ×2 (09:47→17:31)
[2023-03-11] MEDS: MICONAZOLE NITRATE 2% CREAM 30 GM TUBE 1 APPLIC TOPICAL ×2 (09:47→17:31)
[2023-03-11] MEDS: HYDROcodone/acetaminophen (*CRX) 10-325 MG TABLET 1 TAB PO ×2 (11:16→20:34)
[2023-03-11] MEDS: SODIUM CHLORIDE 0.9% IV 1,000 ML 75 ML IV CONT (13:14)
--- NOTE | 2023-03-11 14:30 | PM.IMPN ---
Progress Note: A&P Assessment and Plan (1) Hyponatremia: Code(s): E87.1 - Hypo-osmolality and hyponatremia Status: Acute Assessment and Plan: Acute versus acute on chronic hyponatremia. She reportedly had problems with hyponatremia when hospitalized at [place] last month and was started on sodium tablets. She looks dry on exam and will be cautiously hydrated with close monitoring of volume status and electrolytes. TSH 3.1, urine sodium 108 and serum osmolality pending Patient receiving IV fluids. sodium chloride tablet 1 gram daily continued. Patient was taking this upon admission. Trend sodium- gradually increasing. Random cortisol within normal limits ACTH pending Patient does take chronic opioid medications. Documented oral intake is not excessive, ~1800 mL/24 hours. Continue to monitor I/O and consider fluid restriction if intake appears >2L (2) COVID: Code(s): U07.1 - COVID-19 Status: Acute Assessment and Plan: Supportive care. She has no oxygen requirement thus no indication for dexamethasone or remdesivir. She reports possible exposure in the last week, but is vague in her answers regarding this. She endorses prior COVID19 vaccination, but is unsure of her booster status. Recommend COVID19 booster if not had in the past 6 month. (3) Generalized weakness: Code(s): R53.1 - Weakness Status: Acute Assessment and Plan: Secondary to a combination of the above. No focal findings on exam. PT/OT consulted. Likely secondary to hyponatremia. (4) Hypertension: Code(s): I10 - Essential (primary) hypertension Status: Chronic Assessment and Plan: Blood pressures stable Continue amlodipine, hydralazine, and lisinopril as BP tolerates. (5) Acute cystitis without hematuria: Code(s): N30.00 - Acute cystitis without hematuria Status: Acute Assessment and Plan: UA shows trace leukocyte esterase and 4+ bacteria, 0-5 white blood cells were noted on microscopy. Patient with acute urinary retention and suprapubic pain on exam. Urine culture with pseumomonas aeruginosa growth >100,000 CFU Cipro allergy noted and family reports reaction is diarrhea only. No hives, pruritus, or anaphylaxis with prior use. Start Levaquin 750 mg PO daily x 5 days for acute cystitis. 1st dose 03/11/2023. Plan to DC Stock in the morning (6) Acute urinary retention: Code(s): R33.8 - Other retention of urine Status: Acute Assessment and Plan: bladder scan >1300 mL on admission with patient c/o pain and tenderness on exam. Denies prior history of urinary retention. Most likely associated with acute UTI. Indwelling stock catheter continued. Voiding trial in 24-48 hours after antibiotic therapy initiated. Subjective Date/time seen: 03/11/23 14:30 Interval history: patient doing well today with no new complaints at this time. Patient continuing Stock catheter today and plan for discontinuation voiding trial tomorrow. Patient states that she feels back to herself. Sodium continues to rise. She denies suprapubic pain, nausea, vomiting, body aches, chills, chest pain shortness a breath. Review of Systems Review of Systems: All systems reviewed & are unremarkable except as noted in HPI and below Exam Narrative: GENERAL: Comfortable, no acute distress HENMT: moist mucous membranes EYES: EOM intact b/l NECK: no lymphadenopathy RESPIRATORY: clear to auscultation CARDIO: RRR GI: soft, nontender, bowel sounds present SKIN: no rashes EXTREMITIES: no edema, redness or tenderness Objective Data Vital Signs Vital Signs: Vital Signs - 24 hr 03/10/23 17:57 03/10/23 16:00 03/10/23 20:00 Temperature 97.4 F L Pulse Rate 72 65 65 Respiratory Rate 14 20 Blood Pressure 131/52 L 124/60 Pulse Oximetry 98 96 Oxygen Delivery 03/10/23 20:50 03/10/23 20:4
--- NOTE | 2023-03-11 15:38 | PCCCNOTE ---
On 03/11/23, the student, [Amie Bacon ], provided care and completed [facility] documentation on this patient. I have reviewed the student's documentation and agree with the findings.
[2023-03-11 20:15] LABS: Osmolality, Urine 320 mOsm/kg (50-1200)
[2023-03-11] MEDS: SERTRALINE HCL 25 MG TABLET PO (20:34)
[2023-03-12] VITALS (11 sets, daily range): BP systolic 110–148; BP diastolic 53–70; PULSE 52–78; RESP 18–20; TEMP 36.4–36.6; O2SAT 98–99
[2023-03-12] MEDS: LEVOTHYROXINE SODIUM 112 MCG TABLET PO (06:20)
[2023-03-12] MEDS: LEVOTHYROXINE SODIUM 25 MCG TABLET PO (06:20)
[2023-03-12] MEDS: SODIUM CHLORIDE 0.9% IV 1,000 ML 75 ML IV CONT (06:20)
[2023-03-12 06:42] LABS: Hematocrit 33.6 % (37.0-47.0); Mean Corpuscular HGB Conc 32.7 g/dl (32-36); Mean Corpuscular Hemoglobin 28.7 pg (26-34); Mean Corpuscular Volume 87.7 fl (80-100); Mean Platelet Volume 9.1 fl (7.4-10.4); Platelet Count Result 267 k/mm3 (150-375); Red Blood Count 3.83 M/mm3 (4.2-5.4); Red Cell Distribution Width 14.7 % (11.5-14.5); White Blood Count 3.8 K/mm3 (4.5-10.0)
[2023-03-12 07:04] LABS: Alanine Aminotransferase 18 U/L (6-35); Albumin Level 3.6 g/dL (3.5-5.1); Alkaline Phosphatase 92 U/L (38-126); Anion Gap 6 mmol/L (8-16); Aspartate Amino Transferase 25 U/L (14-36); Bilirubin,Total 0.5 mg/dL (0.2-1.3); Blood Urea Nitrogen 5 mg/dL (7-17); Calcium 8.3 mg/dL (8.4-10.2); Carbon Dioxide 27 mmol/L (22-30); Chloride 93 mmol/L (98-107); Estimated CRCL calculation 66 ml/min; Estimated Glomerular Filt Rate > 60; Glucose 86 mg/dL (65-110); Sodium 126 mmol/L (137-145)
[2023-03-12] MEDS: amLODIPine BESYLATE 5 MG TABLET 10 MG BY MOUTH (08:59)
[2023-03-12] MEDS: CHOLECALCIFEROL 1,000 UNITS TABLET 2000 UNITS PO (08:59)
[2023-03-12] MEDS: ASPIRIN 81 MG CHEWABLE TABLET PO (08:59)
[2023-03-12] MEDS: FERROUS SULFATE 324 MG TABLET PO ×2 (09:00→17:21)
[2023-03-12] MEDS: FAMOTIDINE 20 MG TABLET 40 MG PO (09:00)
[2023-03-12] MEDS: DICYCLOMINE HCL 10 MG CAPSULE PO ×4 (09:00→20:24)
[2023-03-12] MEDS: GABAPENTIN 300 MG CAPSULE PO ×3 (09:01→17:20)
[2023-03-12] MEDS: hydrALAZINE HCL 25 MG TABLET PO ×3 (09:01→17:20)
[2023-03-12] MEDS: lisinopriL 20 MG TABLET PO ×2 (09:02→17:20)
[2023-03-12] MEDS: SODIUM CHLORIDE 1 GM TABLET PO ×2 (09:03→17:21)
[2023-03-12] MEDS: SIMVASTATIN 20 MG TABLET 40 MG PO (09:03)
[2023-03-12] MEDS: levoFLOXacin 750 MG TABLET PO (11:29)
[2023-03-12 12:09] LABS: Sodium 125 mmol/L (137-145)
--- NOTE | 2023-03-12 12:12 | PM.IMPN ---
Progress Note: A&P Assessment and Plan (1) Hyponatremia: Code(s): E87.1 - Hypo-osmolality and hyponatremia Status: Acute Assessment and Plan: Acute versus acute on chronic hyponatremia. She reportedly had problems with hyponatremia when hospitalized at [place] last month and was started on sodium tablets. She looks dry on exam and will be cautiously hydrated with close monitoring of volume status and electrolytes. TSH 3.1, urine sodium 108 and serum osmolality pending Patient receiving IV fluids. sodium chloride tablet 1 gram daily continued. Patient was taking this upon admission. Trend sodium- gradually increasing. Random cortisol within normal limits ACTH pending Patient does take chronic opioid medications. 03/12 sodium dropped from 129 to 125. Increased NaCl to 1g bid. Discontinue Zoloft. Recheck urine Na and Cr. (2) COVID: Code(s): U07.1 - COVID-19 Status: Acute Assessment and Plan: Supportive care. She has no oxygen requirement thus no indication for dexamethasone or remdesivir. She reports possible exposure in the last week, but is vague in her answers regarding this. She endorses prior COVID19 vaccination, but is unsure of her booster status. Recommend COVID19 booster if not had in the past 6 month. (3) Generalized weakness: Code(s): R53.1 - Weakness Status: Acute Assessment and Plan: Secondary to a combination of the above. No focal findings on exam. PT/OT consulted. Likely secondary to hyponatremia. (4) Hypertension: Code(s): I10 - Essential (primary) hypertension Status: Chronic Assessment and Plan: Blood pressures stable Continue amlodipine, hydralazine, and lisinopril as BP tolerates. (5) Acute cystitis without hematuria: Code(s): N30.00 - Acute cystitis without hematuria Status: Acute Assessment and Plan: UA shows trace leukocyte esterase and 4+ bacteria, 0-5 white blood cells were noted on microscopy. Patient with acute urinary retention and suprapubic pain on exam. Urine culture with pseumomonas aeruginosa growth >100,000 CFU Cipro allergy noted and family reports reaction is diarrhea only. No hives, pruritus, or anaphylaxis with prior use. Start Levaquin 750 mg PO daily x 5 days for acute cystitis. 1st dose 03/11/2023. Plan to DC Stock in the morning (6) Acute urinary retention: Code(s): R33.8 - Other retention of urine Status: Acute Assessment and Plan: bladder scan >1300 mL on admission with patient c/o pain and tenderness on exam. Denies prior history of urinary retention. Most likely associated with acute UTI. Indwelling stock catheter continued. Voiding trial in 24-48 hours after antibiotic therapy initiated. Subjective Date/time seen: 03/12/23 12:12 Interval history: Patient resting comfortably in bed and she feels back to herself. Unfortunately patient's sodium dropped to 125 today from previously being at 1:29 a.m.. I tried to discuss this with the patient regarding her sodium and if she has ever had this issue before in the past due to us not having any previous record at [place]. patient did not know what her previous history was and shut down when I tried to dig more. She has no new complaints at this time. Review of Systems Review of Systems: All systems reviewed & are unremarkable except as noted in HPI and below Exam Narrative: GENERAL: Comfortable, no acute distress HENMT: moist mucous membranes EYES: EOM intact b/l NECK: no lymphadenopathy RESPIRATORY: clear to auscultation CARDIO: RRR GI: soft, nontender, bowel sounds present SKIN: no rashes EXTREMITIES: no edema, redness or tenderness Objective Data Vital Signs Vital Signs: Vital Signs - 24 hr 03/11/23 16:32 03/11/23 16:33 03/11/23 16:33 Temperature 97.8 F 97.8 F 98.8 F Pulse Rate 59 L 64 61 Respiratory Rate 18 1
[2023-03-12] MEDS: MICONAZOLE NITRATE 2% CREAM 30 GM TUBE 1 APPLIC TOPICAL ×2 (13:16→17:21)
[2023-03-12] MEDS: CLOBETASOL PROPIONATE 0.05% CREAM 15 GM 1 APPLIC TOPICAL ×2 (13:16→17:22)
--- NOTE | 2023-03-12 14:51 | PCCCNOTE ---
On 03/12/23, the student, [Amie Bacon ], provided care and completed [facility] documentation on this patient. I have reviewed the student's documentation and agree with the findings.
[2023-03-12] MEDS: HYDROcodone/acetaminophen (*CRX) 10-325 MG TABLET 1 TAB PO (17:18)
[2023-03-12 18:13] LABS: Creatinine Urine 34.7 mg/dL; Sodium Urine Random 147 meq/L
[2023-03-12] MEDS: SENNA/DOCUSATE SODIUM TABLET 2 TAB PO (20:24)
[2023-03-12] MEDS: ACETAMINOPHEN 325 MG TABLET 650 MG PO (20:24)
[2023-03-13] VITALS (16 sets, daily range): BP systolic 102–132; BP diastolic 46–90; PULSE 55–91; RESP 16–18; TEMP 36–37; O2SAT 97–99
[2023-03-13 05:21] LABS: Hematocrit 31.8 % (37.0-47.0); Hemoglobin 10.7 g/dL (12.0-15.0); Mean Corpuscular HGB Conc 33.6 g/dl (32-36); Mean Corpuscular Hemoglobin 29.5 pg (26-34); Mean Corpuscular Volume 87.6 fl (80-100); Mean Platelet Volume 9.2 fl (7.4-10.4); Platelet Count Result 274 k/mm3 (150-375); Red Blood Count 3.63 M/mm3 (4.2-5.4); Red Cell Distribution Width 14.6 % (11.5-14.5); White Blood Count 3.8 K/mm3 (4.5-10.0)
[2023-03-13 05:26] LABS: Potassium 3.6 mmol/L (3.4-5.0)
[2023-03-13 05:31] LABS: Alanine Aminotransferase 16 U/L (6-35); Albumin Level 3.4 g/dL (3.5-5.1); Alkaline Phosphatase 85 U/L (38-126); Anion Gap 6 mmol/L (8-16); Aspartate Amino Transferase 22 U/L (14-36); Bilirubin,Total 0.5 mg/dL (0.2-1.3); Blood Urea Nitrogen 4 mg/dL (7-17); Calcium 8.3 mg/dL (8.4-10.2); Carbon Dioxide 26 mmol/L (22-30); Chloride 93 mmol/L (98-107); Estimated CRCL calculation 66 ml/min; Estimated Glomerular Filt Rate > 60; Glucose 86 mg/dL (65-110); Sodium 125 mmol/L (137-145)
[2023-03-13] MEDS: LEVOTHYROXINE SODIUM 25 MCG TABLET PO (06:26)
[2023-03-13] MEDS: LEVOTHYROXINE SODIUM 112 MCG TABLET PO (06:26)
[2023-03-13] MEDS: HYDROcodone/acetaminophen (*CRX) 10-325 MG TABLET 1 TAB PO ×2 (06:27→18:29)
[2023-03-13] MEDS: CHOLECALCIFEROL 1,000 UNITS TABLET 2000 UNITS PO (10:06)
[2023-03-13] MEDS: FERROUS SULFATE 324 MG TABLET PO ×2 (10:06→18:27)
[2023-03-13] MEDS: hydrALAZINE HCL 25 MG TABLET PO ×2 (10:06→18:27)
[2023-03-13] MEDS: lisinopriL 20 MG TABLET PO ×2 (10:06→18:27)
[2023-03-13] MEDS: amLODIPine BESYLATE 5 MG TABLET 10 MG BY MOUTH (10:06)
[2023-03-13] MEDS: GABAPENTIN 300 MG CAPSULE PO ×3 (10:06→18:27)
[2023-03-13] MEDS: levoFLOXacin 750 MG TABLET PO (10:06)
[2023-03-13] MEDS: SIMVASTATIN 20 MG TABLET 40 MG PO (10:06)
[2023-03-13] MEDS: ASPIRIN 81 MG CHEWABLE TABLET PO (10:06)
[2023-03-13] MEDS: DICYCLOMINE HCL 10 MG CAPSULE PO ×4 (10:06→21:28)
[2023-03-13] MEDS: CLOBETASOL PROPIONATE 0.05% CREAM 15 GM 1 APPLIC TOPICAL ×2 (10:07→18:27)
[2023-03-13] MEDS: MICONAZOLE NITRATE 2% CREAM 30 GM TUBE 1 APPLIC TOPICAL ×2 (10:07→18:27)
[2023-03-13] MEDS: polyethylene glycoL 3350 17 GM POWD.PACK PO (10:07)
[2023-03-13] MEDS: SODIUM CHLORIDE 1 GM TABLET PO ×2 (10:07→18:27)
--- NOTE | 2023-03-13 14:40 | PM.IMPN ---
Progress Note: A&P Assessment and Plan (1) Hyponatremia: Code(s): E87.1 - Hypo-osmolality and hyponatremia Status: Acute Assessment and Plan: Acute versus acute on chronic hyponatremia. She reportedly had problems with hyponatremia when hospitalized at [place] last month and was started on sodium tablets. She looks dry on exam and will be cautiously hydrated with close monitoring of volume status and electrolytes. TSH 3.1, urine sodium 108 and serum osmolality pending Patient receiving IV fluids. sodium chloride tablet 1 gram daily continued. Patient was taking this upon admission. Trend sodium- gradually increasing. Random cortisol within normal limits ACTH pending Patient does take chronic opioid medications. 03/12 sodium dropped from 129 to 125. Increased NaCl to 1g bid. Discontinue Zoloft. Recheck urine Na and Cr. 03/13 sodium is still low at 125. Will consult nephrology regarding hyponatremia. (2) COVID: Code(s): U07.1 - COVID-19 Status: Acute Assessment and Plan: Supportive care. She has no oxygen requirement thus no indication for dexamethasone or remdesivir. She reports possible exposure in the last week, but is vague in her answers regarding this. She endorses prior COVID19 vaccination, but is unsure of her booster status. Recommend COVID19 booster if not had in the past 6 month. (3) Generalized weakness: Code(s): R53.1 - Weakness Status: Acute Assessment and Plan: Secondary to a combination of the above. No focal findings on exam. PT/OT consulted. Likely secondary to hyponatremia. (4) Hypertension: Code(s): I10 - Essential (primary) hypertension Status: Chronic Assessment and Plan: Blood pressures stable Continue amlodipine, hydralazine, and lisinopril as BP tolerates. (5) Acute cystitis without hematuria: Code(s): N30.00 - Acute cystitis without hematuria Status: Acute Assessment and Plan: UA shows trace leukocyte esterase and 4+ bacteria, 0-5 white blood cells were noted on microscopy. Patient with acute urinary retention and suprapubic pain on exam. Urine culture with pseudomonas aeruginosa growth >100,000 CFU Cipro allergy noted and family reports reaction is diarrhea only. No hives, pruritus, or anaphylaxis with prior use. Start Levaquin 750 mg PO daily x 5 days for acute cystitis. 1st dose 03/11/2023. (6) Acute urinary retention: Code(s): R33.8 - Other retention of urine Status: Acute Assessment and Plan: bladder scan >1300 mL on admission with patient c/o pain and tenderness on exam. Denies prior history of urinary retention. Most likely associated with acute UTI. Patient failed Voiding trial and Jauregui catheter reinserted on 03/12/2023. Advised follow-up with Urology in 10 days for catheter removal. Start tamsulosin 0.4 mg daily. Subjective Date/time seen: 03/13/23 14:40 Interval history: Patient does not have any new complaints at this time. Talked to patient's daughter regarding her mothers care for 16 minutes. Review of Systems Review of Systems: All systems reviewed & are unremarkable except as noted in HPI and below Exam Narrative: GENERAL: Comfortable, no acute distress HENMT: moist mucous membranes EYES: EOM intact b/l NECK: no lymphadenopathy RESPIRATORY: clear to auscultation CARDIO: RRR GI: soft, nontender, bowel sounds present SKIN: no rashes EXTREMITIES: no edema, redness or tenderness Objective Data Vital Signs Vital Signs: Vital Signs - 24 hr 03/12/23 16:00 03/12/23 19:48 03/12/23 19:48 Temperature 97.6 F Pulse Rate 78 58 L Respiratory Rate 18 Blood Pressure 110/53 L 134/70 Pulse Oximetry 98 Oxygen Delivery 03/12/23 19:48 03/12/23 19:48 03/12/23 20:00 Temperature 97.8 F Pulse Rate 58 L 58 L Respiratory Rate 18 18 Blood Pressure 131/
--- NOTE | 2023-03-13 15:15 | P.CONNP_ITS ---
Assessment and Plan Assessment and plan (1) Hyponatremia: Code(s): E87.1 - Hypo-osmolality and hyponatremia Status: Acute Assessment and Plan: * acute versus acute on chronic versus chronic(?) * started salt tabs several weeks ago during hospitalization at [facility] * initially improved during this hospital stay but down to 125mmol/L by labs today (03/13/23) * sodium peaked at around 129mmol/L during this hospitalization * no evidence of overcorrection since admission * evaluation to date noted: * TSH okay (on levothyroxine) * cortisol a tad low -- check cosyntropin stim test * urine electrolytes non-prerenal * CXR clear * CT of head noted -- Low attenuation in the prakash, which may be seen with ch ronic small vessel ischemic disease and/or osmotic demyelination -- Brain MRI ordered * SSRI (zoloft) discontinued * attempt to get records from [facility] regarding hyponatremia * continue fluid restriction (currently 150occ) - may need to be more aggressive * continue salt tabs for now * may need to add low dose lasix * check SPEP and UPEP * follow trend of repeat sodiums (2) COVID-19 virus infection: Code(s): U07.1 - COVID-19 Status: Acute Assessment and Plan: * as noted on admission testing * no hypoxia or respiratory symptoms * possibly contributing to #1(?) * supportive therapy (3) Urinary tract infection: Code(s): N39.0 - Urinary tract infection, site not specified Status: Acute Assessment and Plan: * as noted by admission UA and urine culture results * complicated by urinary retention - stock catheter in place * on antibiotics (4) Generalized weakness: Code(s): R53.1 - Weakness Status: Acute Assessment and Plan: * recent hospitalization and stay at rehab * contributing factors include UTI and hyponatremia * PT/OT as tolerated (5) Hypertension: Code(s): I10 - Essential (primary) hypertension Status: Chronic Assessment and Plan: * reasonable control at this time * follow trend of hemodynamics I will continue to follow the patient with you while she remains hospitalized to make further recommendations as her hospital course. Thank you for allowing me to participate in the care of this patient. History of Present Illness Reason for Consult Consult date: 03/13/23 Reason for consult: hyponatremia Chief Complaint Chief complaint: hyponatremia,abnormal ua,covid History of Present Illness Narrative: Most of the history that I have obtained is from review of electronic medical records as well as discussion with physicians/nurses involved in the patient's care as the patient has trouble given me specific details regarding her admission to the hospital and events leading to this. The patient is an 82-year-old female with a past medical history as outlined below who presented to [facility] Emergency room for further evaluation of generalized weakness. Apparently, the patient was recently discharged from [facility] few weeks ago after being treated for urosepsis. Following that hospitalization, she was discharged to rehab for ongoing physical and occupational therapy after the deconditioning that she suffered from this acute hospitalization. She was just recently discharged back home under the care of her daughter but given her ongoing symptoms malaise, weakness, poor oral intake, and generalized body aches, she was brought to the ER for further assessment. Workup and evaluati
--- NOTE | 2023-03-13 15:15 | PM.CNNEP ---
Assessment and Plan Assessment and plan (1) Hyponatremia: Code(s): E87.1 - Hypo-osmolality and hyponatremia Status: Acute Assessment and Plan: acute versus acute on chronic versus chronic(?) started salt tabs several weeks ago during hospitalization at [facility] initially improved during this hospital stay but down to 125mmol/L by labs today (03/13/23) sodium peaked at around 129mmol/L during this hospitalization no evidence of overcorrection since admission evaluation to date noted: TSH okay (on levothyroxine) cortisol a tad low -- check cosyntropin stim test urine electrolytes non-prerenal CXR clear CT of head noted -- Low attenuation in the prakash, which may be seen with chronic small vessel ischemic disease and/or osmotic demyelination -- Brain MRI ordered SSRI (zoloft) discontinued attempt to get records from [facility] regarding hyponatremia continue fluid restriction (currently 150occ) - may need to be more aggressive continue salt tabs for now may need to add low dose lasix check SPEP and UPEP follow trend of repeat sodiums (2) COVID-19 virus infection: Code(s): U07.1 - COVID-19 Status: Acute Assessment and Plan: as noted on admission testing no hypoxia or respiratory symptoms possibly contributing to #1(?) supportive therapy (3) Urinary tract infection: Code(s): N39.0 - Urinary tract infection, site not specified Status: Acute Assessment and Plan: as noted by admission UA and urine culture results complicated by urinary retention - stock catheter in place on antibiotics (4) Generalized weakness: Code(s): R53.1 - Weakness Status: Acute Assessment and Plan: recent hospitalization and stay at rehab contributing factors include UTI and hyponatremia PT/OT as tolerated (5) Hypertension: Code(s): I10 - Essential (primary) hypertension Status: Chronic Assessment and Plan: reasonable control at this time follow trend of hemodynamics I will continue to follow the patient with you while she remains hospitalized to make further recommendations as her hospital course. Thank you for allowing me to participate in the care of this patient. History of Present Illness Reason for Consult Consult date: 03/13/23 Reason for consult: hyponatremia Chief Complaint Chief complaint: hyponatremia,abnormal ua,covid History of Present Illness Narrative: Most of the history that I have obtained is from review of electronic medical records as well as discussion with physicians/nurses involved in the patient's care as the patient has trouble given me specific details regarding her admission to the hospital and events leading to this. The patient is an 82-year-old female with a past medical history as outlined below who presented to [facility] Emergency room for further evaluation of generalized weakness. Apparently, the patient was recently discharged from [facility] few weeks ago after being treated for urosepsis. Following that hospitalization, she was discharged to rehab for ongoing physical and occupational therapy after the deconditioning that she suffered from this acute hospitalization. She was just recently discharged back home under the care of her daughter but given her ongoing symptoms malaise, weakness, poor oral intake, and generalized body aches, she was brought to the ER for further assessment. Workup and evaluation emergency room demonstrated patient be hemodynamically stable and in no acute distress. She denied any other symptoms the guarded fevers, chills, nausea, vomiting, chest pain, shortness of breath, dizziness, lightheadedness or abdominal pain. Routine blood tests were significant for relative anemia with a hemoglobin 11.3, hyponatremia with a sodium 122, and a urinalysis that was highly suggestive of a urinary tract infection.
[2023-03-13] MEDS: SENNA/DOCUSATE SODIUM TABLET 2 TAB PO (21:28)
[2023-03-13] MEDS: FAMOTIDINE 20 MG TABLET 40 MG PO (21:28)
[2023-03-14] VITALS (16 sets, daily range): BP systolic 94–130; BP diastolic 46–68; PULSE 58–96; RESP 17–20; TEMP 36.3–36.9; O2SAT 95–100
[2023-03-14] MEDS: COSYNTROPIN 0.25 MG/ML VIAL IV PUSH (04:56)
[2023-03-14] MEDS: LEVOTHYROXINE SODIUM 25 MCG TABLET PO (04:56)
[2023-03-14] MEDS: LEVOTHYROXINE SODIUM 112 MCG TABLET PO (04:56)
[2023-03-14 04:57] LABS: Hemoglobin 11.4 g/dL (12.0-15.0); Mean Corpuscular HGB Conc 33.5 g/dl (32-36); Mean Corpuscular Hemoglobin 28.6 pg (26-34); Mean Corpuscular Volume 85.2 fl (80-100); Mean Platelet Volume 8.7 fl (7.4-10.4); Platelet Count Result 325 k/mm3 (150-375); Red Blood Count 3.99 M/mm3 (4.2-5.4); Red Cell Distribution Width 14.7 % (11.5-14.5); White Blood Count 5.5 K/mm3 (4.5-10.0)
[2023-03-14 05:54] LABS: Alanine Aminotransferase 16 U/L (6-35); Albumin Level 3.6 g/dL (3.5-5.1); Alkaline Phosphatase 95 U/L (38-126); Anion Gap 7 mmol/L (8-16); Aspartate Amino Transferase 23 U/L (14-36); Bilirubin,Total 0.5 mg/dL (0.2-1.3); Blood Urea Nitrogen 7 mg/dL (7-17); Calcium 8.3 mg/dL (8.4-10.2); Carbon Dioxide 27 mmol/L (22-30); Chloride 93 mmol/L (98-107); Estimated CRCL calculation 56 ml/min; Estimated Glomerular Filt Rate > 60; Glucose 82 mg/dL (65-110); Sodium 127 mmol/L (137-145)
--- NOTE | 2023-03-14 09:04 | P.PNNP_ITS ---
Progress Note: A&P Assessment and Plan (1) Hyponatremia: Code(s): E87.1 - Hypo-osmolality and hyponatremia Status: Acute Assessment and Plan: * acute versus acute on chronic versus chronic(?) * Received the charts from [place] and looks like her sodium level was between 126 and 130 during the whole hospitalization. * evaluation to date noted: * TSH okay (on levothyroxine) * cortisol a tad low --Cortrosyn stim test was negative. * urine electrolytes non-prerenal * SPEP pending * CXR clear * CT of head noted -- Low attenuation in the prakash, which may be seen with chronic small vessel ischemic disease and/or osmotic demyelination -- Brain MRI ordered * SSRI (zoloft) discontinued * No history of cancer and her cancer screening is up-to-date. * Will start fluid restriction of 1500cc per day. * Will add small dose of furosemide to the salt tablets. * Check another sodium tomorrow (2) COVID-19 virus infection: Code(s): U07.1 - COVID-19 Status: Acute Assessment and Plan: * as noted on admission testing * no hypoxia or respiratory symptoms * On room air (3) Urinary tract infection: Code(s): N39.0 - Urinary tract infection, site not specified Status: Acute Assessment and Plan: * as noted by admission UA and urine culture results * complicated by urinary retention - stock catheter in place * on Levaquin (4) Generalized weakness: Code(s): R53.1 - Weakness Status: Acute Assessment and Plan: * recent hospitalization and stay at rehab * contributing factors include UTI and hyponatremia * PT/OT as tolerated (5) Hypertension: Code(s): I10 - Essential (primary) hypertension Status: Chronic Assessment and Plan: * Blood pressure below 130 today. * follow trend of hemodynamics Subjective Date/time seen: 03/14/23 09:04 Interval history: Sharon is feeling about the same today. No shortness of breath No chest pain Review of Systems Cardiovascular: Cardiovascular: Reports no additional cardiovascular complaints Respiratory: Respiratory: Reports no additional respiratory complaints Gastrointestinal: Gastrointestinal: Reports no additional gastrointestinal co mplaints Genitourinary: Genitourinary: Reports no additional female genitourinary complaints Exam Narrative: WDWN in NAD skin no rash head ncat lungs clear cor reg no rub abd BS+ nontender and soft ext no edema. Objective Data Vital Signs Vital Signs: Vital Signs - 24 hr 03/13/23 10:04 03/13/23 10:15 03/13/23 11:45 Temperature Pulse Rate 65 69 Respiratory Rate 18 Blood Pressure 124/56 L 132/46 L Pulse Oximetry 98 Oxygen Delivery Room Air 03/13/23 11:50 03/13/23 11:55 03/13/23 12:00 Temperature Pulse Rate 74 91 83 Respiratory Rate Blood Pressure 132/57 L 121/50 L Pulse Oximetry Oxygen Delivery 03/13/23 12:52 03/13/23 14:00 03/13/23 11:30 Temperature 98.6 F Pulse Rate 71 Respiratory Rate 16 Blood Pressure 102/56 L 113/58 L 132/46 L Pulse Oximetry 99 Oxygen Delivery 03/13/23 16:00
--- NOTE | 2023-03-14 09:04 | PM.PNNEP ---
Progress Note: A&P Assessment and Plan (1) Hyponatremia: Code(s): E87.1 - Hypo-osmolality and hyponatremia Status: Acute Assessment and Plan: acute versus acute on chronic versus chronic(?) Received the charts from [place] and looks like her sodium level was between 126 and 130 during the whole hospitalization. evaluation to date noted: TSH okay (on levothyroxine) cortisol a tad low --Cortrosyn stim test was negative. urine electrolytes non-prerenal SPEP pending CXR clear CT of head noted -- Low attenuation in the prakash, which may be seen with chronic small vessel ischemic disease and/or osmotic demyelination -- Brain MRI ordered SSRI (zoloft) discontinued No history of cancer and her cancer screening is up-to-date. Will start fluid restriction of 1500cc per day. Will add small dose of furosemide to the salt tablets. Check another sodium tomorrow (2) COVID-19 virus infection: Code(s): U07.1 - COVID-19 Status: Acute Assessment and Plan: as noted on admission testing no hypoxia or respiratory symptoms On room air (3) Urinary tract infection: Code(s): N39.0 - Urinary tract infection, site not specified Status: Acute Assessment and Plan: as noted by admission UA and urine culture results complicated by urinary retention - stock catheter in place on Levaquin (4) Generalized weakness: Code(s): R53.1 - Weakness Status: Acute Assessment and Plan: recent hospitalization and stay at rehab contributing factors include UTI and hyponatremia PT/OT as tolerated (5) Hypertension: Code(s): I10 - Essential (primary) hypertension Status: Chronic Assessment and Plan: Blood pressure below 130 today. follow trend of hemodynamics Subjective Date/time seen: 03/14/23 09:04 Interval history: Sharon is feeling about the same today. No shortness of breath No chest pain Review of Systems Cardiovascular: Cardiovascular: Reports no additional cardiovascular complaints Respiratory: Respiratory: Reports no additional respiratory complaints Gastrointestinal: Gastrointestinal: Reports no additional gastrointestinal complaints Genitourinary: Genitourinary: Reports no additional female genitourinary complaints Exam Narrative: WDWN in NAD skin no rash head ncat lungs clear cor reg no rub abd BS+ nontender and soft ext no edema. Objective Data Vital Signs Vital Signs: Vital Signs - 24 hr 03/13/23 10:04 03/13/23 10:15 03/13/23 11:45 Temperature Pulse Rate 65 69 Respiratory Rate 18 Blood Pressure 124/56 L 132/46 L Pulse Oximetry 98 Oxygen Delivery Room Air 03/13/23 11:50 03/13/23 11:55 03/13/23 12:00 Temperature Pulse Rate 74 91 83 Respiratory Rate Blood Pressure 132/57 L 121/50 L Pulse Oximetry Oxygen Delivery 03/13/23 12:52 03/13/23 14:00 03/13/23 11:30 Temperature 98.6 F Pulse Rate 71 Respiratory Rate 16 Blood Pressure 102/56 L 113/58 L 132/46 L Pulse Oximetry 99 Oxygen Delivery 03/13/23 16:00 03/13/23 18:26 03/13/23 20:00 Temperature 97.6 F Pulse Rate 63 73 64 Respiratory Rate 18 18 Blood Pressure 130/56 L 123/52 L Pulse Oximetry 99 97 Oxygen Delivery 03/13/23 20:27 03/13/23 20:27 03/13/23 20:27 Temperature 97.6 F Pulse Rate 64 Respiratory Rate 18 Blood Pressure 123/52 L 127/66 121/90 Pulse Oximetry 97 Oxygen Delivery 03/13/23 20:00 03/14/23 00:00 03/14/23 04:05 Temperature 97.3 F L Pulse Rate 63 58 L 64 Respiratory Rate 18 Blood Pressure 129/51 L Pulse Oximetry 97 Oxygen Delivery 03/14/23 04:00 03/14/23 08:00 Temperature Pulse Rate 64 63 Respiratory Rate Blood Pressure Pulse Oximetry Oxygen Delivery Intake/Output Intake/Output: Intake & Output 03/11/23 03/12/23 03/13/23 03/14/23 23:59 23:59 23:59 23:59 Intake Total 1909 1989 1430 240 O
[2023-03-14] MEDS: amLODIPine BESYLATE 5 MG TABLET 10 MG BY MOUTH (09:17)
[2023-03-14] MEDS: DICYCLOMINE HCL 10 MG CAPSULE PO ×4 (09:17→20:20)
[2023-03-14] MEDS: GABAPENTIN 300 MG CAPSULE PO ×3 (09:17→17:52)
[2023-03-14] MEDS: ASPIRIN 81 MG CHEWABLE TABLET PO (09:17)
[2023-03-14] MEDS: FERROUS SULFATE 324 MG TABLET PO ×2 (09:17→17:52)
[2023-03-14] MEDS: FAMOTIDINE 20 MG TABLET 40 MG PO ×2 (09:17→17:51)
[2023-03-14] MEDS: CHOLECALCIFEROL 1,000 UNITS TABLET 2000 UNITS PO (09:17)
[2023-03-14] MEDS: lisinopriL 20 MG TABLET PO (09:18)
[2023-03-14] MEDS: CLOBETASOL PROPIONATE 0.05% CREAM 15 GM 1 APPLIC TOPICAL ×2 (09:18→17:52)
[2023-03-14] MEDS: hydrALAZINE HCL 25 MG TABLET PO ×2 (09:18→12:47)
[2023-03-14] MEDS: SODIUM CHLORIDE 1 GM TABLET PO ×2 (09:18→17:52)
[2023-03-14] MEDS: levoFLOXacin 750 MG TABLET PO (09:18)
[2023-03-14] MEDS: MICONAZOLE NITRATE 2% CREAM 30 GM TUBE 1 APPLIC TOPICAL ×2 (09:18→17:52)
[2023-03-14] MEDS: HYDROcodone/acetaminophen (*CRX) 10-325 MG TABLET 1 TAB PO (09:18)
[2023-03-14] MEDS: SIMVASTATIN 20 MG TABLET 40 MG PO (09:18)
[2023-03-14] MEDS: TAMSULOSIN HCL 0.4 MG CAPSULE PO (09:18)
--- NOTE | 2023-03-14 13:15 | P.PNIM_ITS ---
Progress Note: A&P Assessment and Plan (1) Hyponatremia: Code(s): E87.1 - Hypo-osmolality and hyponatremia Status: Acute Assessment and Plan: Acute versus acute on chronic hyponatremia. She reportedly had problems with hyponatremia when hospitalized at [place] last month and was started on sodium tablets. She looks dry on exam and will be cautiously hydrated with close monitoring of volume status and electrolytes. * TSH 3.1, urine sodium 108 and serum osmolality pending * Patient receiving IV fluids. * Sodium chloride tablet 1 gram daily continued. Patient was taking this upon admission. * Trend sodium- gradually increasing. * Random cortisol within normal limits * ACTH pending * Patient does take chronic opioid medications. * 03/12 Sodium dropped from 129 to 125. Increased NaCl to 1g bid. Discontinue Z oloft. Recheck urine Na and Cr. * 03/13 Sodium is still low at 125. Will consult nephrology regarding hyponatremia. * 03/14 Sodium 127. Nephrology following. Fluid restricted to 1500 mL and furosemide given with salt tabs. (2) COVID: Code(s): U07.1 - COVID-19 Status: Acute Assessment and Plan: Supportive care. She has no oxygen requirement thus no indication for dexamethasone or remdesivir. * She reports possible exposure in the last week, but is vague in her answers regarding this. * She endorses prior COVID19 vaccination, but is unsure of her booster status. * Recommend COVID19 booster if not had in the past 6 month. (3) Generalized weakness: Code(s): R53.1 - Weakness Status: Acute Assessment and Plan: Secondary to a combination of the above. * No focal findings on exam. PT/OT consulted. * Likely secondary to hyponatremia. (4) Hypertension: Code(s): I10 - Essential (primary) hypertension Status: Chronic Assessment and Plan: Blood pressures stable Continue amlodipine, hydralazine, and lisinopril as BP tolerates. (5) Acute cystitis without hematuria: Code(s): N30.00 - Acute cystitis without hematuria Status: Acute Assessment and Plan: UA shows trace leukocyte esterase and 4+ bacteria, 0-5 white blood cells were noted on microscopy. * Patient with acute urinary retention and suprapubic pain on exam. * Urine culture with pseudomonas aeruginosa growth >100,000 CFU * Cipro allergy noted and family reports reaction is diarrhea only. No hives, pruritus, or anaphylaxis with prior use. * Start Levaquin 750 mg PO daily x 5 days for acute cystitis. 1st dose 03/11/2023. (6) Acute urinary retention: Code(s): R33.8 - Other retention of urine Status: Acute Assessment and Plan: bladder scan >1300 mL on admission with patient c/o pain and tenderness on exam. Denies prior history of urinary retention. * Most likely associated with acute UTI. * Patient failed voiding trial and Jauregui catheter reinserted on 03/12/2023. * Advised follow-up with Urology in 10 days for catheter removal. Start tamsulosin 0.4 mg daily. Subjective Date/time seen: 03/14/23 13:15 Interval history: Patient resting in bed with no new complaints. Review of Systems Review of Systems: All systems reviewed & are unremarkable except as noted in HPI and below Exam Narrative: GENERAL: Comfortable, no acute distress HENMT: moist mucous membranes EYES: EOM intact b/l NECK: no lymp
--- NOTE | 2023-03-14 13:15 | PM.IMPN ---
Progress Note: A&P Assessment and Plan (1) Hyponatremia: Code(s): E87.1 - Hypo-osmolality and hyponatremia Status: Acute Assessment and Plan: Acute versus acute on chronic hyponatremia. She reportedly had problems with hyponatremia when hospitalized at [place] last month and was started on sodium tablets. She looks dry on exam and will be cautiously hydrated with close monitoring of volume status and electrolytes. TSH 3.1, urine sodium 108 and serum osmolality pending Patient receiving IV fluids. Sodium chloride tablet 1 gram daily continued. Patient was taking this upon admission. Trend sodium- gradually increasing. Random cortisol within normal limits ACTH pending Patient does take chronic opioid medications. 03/12 Sodium dropped from 129 to 125. Increased NaCl to 1g bid. Discontinue Zoloft. Recheck urine Na and Cr. 03/13 Sodium is still low at 125. Will consult nephrology regarding hyponatremia. 03/14 Sodium 127. Nephrology following. Fluid restricted to 1500 mL and furosemide given with salt tabs. (2) COVID: Code(s): U07.1 - COVID-19 Status: Acute Assessment and Plan: Supportive care. She has no oxygen requirement thus no indication for dexamethasone or remdesivir. She reports possible exposure in the last week, but is vague in her answers regarding this. She endorses prior COVID19 vaccination, but is unsure of her booster status. Recommend COVID19 booster if not had in the past 6 month. (3) Generalized weakness: Code(s): R53.1 - Weakness Status: Acute Assessment and Plan: Secondary to a combination of the above. No focal findings on exam. PT/OT consulted. Likely secondary to hyponatremia. (4) Hypertension: Code(s): I10 - Essential (primary) hypertension Status: Chronic Assessment and Plan: Blood pressures stable Continue amlodipine, hydralazine, and lisinopril as BP tolerates. (5) Acute cystitis without hematuria: Code(s): N30.00 - Acute cystitis without hematuria Status: Acute Assessment and Plan: UA shows trace leukocyte esterase and 4+ bacteria, 0-5 white blood cells were noted on microscopy. Patient with acute urinary retention and suprapubic pain on exam. Urine culture with pseudomonas aeruginosa growth >100,000 CFU Cipro allergy noted and family reports reaction is diarrhea only. No hives, pruritus, or anaphylaxis with prior use. Start Levaquin 750 mg PO daily x 5 days for acute cystitis. 1st dose 03/11/2023. (6) Acute urinary retention: Code(s): R33.8 - Other retention of urine Status: Acute Assessment and Plan: bladder scan >1300 mL on admission with patient c/o pain and tenderness on exam. Denies prior history of urinary retention. Most likely associated with acute UTI. Patient failed voiding trial and Jauregui catheter reinserted on 03/12/2023. Advised follow-up with Urology in 10 days for catheter removal. Start tamsulosin 0.4 mg daily. Subjective Date/time seen: 03/14/23 13:15 Interval history: Patient resting in bed with no new complaints. Review of Systems Review of Systems: All systems reviewed & are unremarkable except as noted in HPI and below Exam Narrative: GENERAL: Comfortable, no acute distress HENMT: moist mucous membranes EYES: EOM intact b/l NECK: no lymphadenopathy RESPIRATORY: clear to auscultation CARDIO: RRR GI: soft, nontender, bowel sounds present SKIN: no rashes EXTREMITIES: no edema, redness or tenderness Objective Data Vital Signs Vital Signs: Vital Signs - 24 hr 03/13/23 14:00 03/13/23 16:00 03/13/23 18:26 Temperature 98.6 F Pulse Rate 71 63 73 Respiratory Rate 16 18 Blood Pressure 113/58 L 130/56 L Pulse Oximetry 99 99 Oxygen Delivery 03/13/23 20:00 03/13/23 20:27 03/13/23 20:27 Temperature 97.6 F 97.6 F Pulse Rate 64 64 Respiratory Rat
[2023-03-14] MEDS: SENNA/DOCUSATE SODIUM TABLET 2 TAB PO (20:20)
[2023-03-15] VITALS (16 sets, daily range): BP systolic 105–132; BP diastolic 41–68; PULSE 61–90; RESP 16–18; TEMP 36.4–37.3; O2SAT 97–99
[2023-03-15 06:02] LABS: Adrenocorticotropic Hormone 11 pg/mL (6-50)
[2023-03-15 06:20] LABS: Hematocrit 31.7 % (37.0-47.0); Hemoglobin 10.6 g/dL (12.0-15.0); Mean Corpuscular HGB Conc 33.4 g/dl (32-36); Mean Corpuscular Hemoglobin 29.3 pg (26-34); Mean Corpuscular Volume 87.6 fl (80-100); Platelet Count Result 324 k/mm3 (150-375); Red Blood Count 3.62 M/mm3 (4.2-5.4); Red Cell Distribution Width 15.2 % (11.5-14.5); White Blood Count 5.7 K/mm3 (4.5-10.0)
[2023-03-15] MEDS: LEVOTHYROXINE SODIUM 25 MCG TABLET PO (06:35)
[2023-03-15] MEDS: LEVOTHYROXINE SODIUM 112 MCG TABLET PO (06:35)
[2023-03-15 06:42] LABS: Anion Gap 3 mmol/L (8-16); Blood Urea Nitrogen 14 mg/dL (7-17); Calcium 8.6 mg/dL (8.4-10.2); Carbon Dioxide 29 mmol/L (22-30); Chloride 96 mmol/L (98-107); Estimated CRCL calculation 43 ml/min; Estimated Glomerular Filt Rate > 60; Glucose 91 mg/dL (65-110); Potassium 3.9 mmol/L (3.4-5.0); Sodium 128 mmol/L (137-145)
[2023-03-15] MEDS: CHOLECALCIFEROL 1,000 UNITS TABLET 2000 UNITS PO (09:29)
[2023-03-15] MEDS: SIMVASTATIN 20 MG TABLET 40 MG PO (09:29)
[2023-03-15] MEDS: FERROUS SULFATE 324 MG TABLET PO ×2 (09:30→16:18)
[2023-03-15] MEDS: SODIUM CHLORIDE 1 GM TABLET PO ×2 (09:30→16:19)
[2023-03-15] MEDS: FAMOTIDINE 20 MG TABLET 40 MG PO ×2 (09:30→16:18)
[2023-03-15] MEDS: levoFLOXacin 750 MG TABLET PO (09:31)
[2023-03-15] MEDS: ASPIRIN 81 MG CHEWABLE TABLET PO (09:31)
[2023-03-15] MEDS: TAMSULOSIN HCL 0.4 MG CAPSULE PO (09:31)
[2023-03-15] MEDS: GABAPENTIN 300 MG CAPSULE PO ×3 (09:31→16:19)
[2023-03-15] MEDS: CLOBETASOL PROPIONATE 0.05% CREAM 15 GM 1 APPLIC TOPICAL ×2 (09:32→16:18)
[2023-03-15] MEDS: DICYCLOMINE HCL 10 MG CAPSULE PO ×4 (09:33→21:01)
--- NOTE | 2023-03-15 10:19 | P.PNNP_ITS ---
Progress Note: A&P Assessment and Plan (1) Hyponatremia: Code(s): E87.1 - Hypo-osmolality and hyponatremia Status: Acute Assessment and Plan: * acute versus acute on chronic versus chronic(?) * Received the charts from [place] and looks like her sodium level was between 126 and 130 during the whole hospitalization. * evaluation to date noted: * TSH okay (on levothyroxine) * cortisol a tad low --Cortrosyn stim test was negative. * urine electrolytes non-prerenal * SPEP pending * CXR clear * CT of head noted -- Low attenuation in the prakash, which may be seen with chronic small vessel ischemic disease and/or osmotic demyelination -- Brain MRI ordered * SSRI (zoloft) discontinued * No history of cancer and her cancer screening is up-to-date. * on fluid restriction and salt tablets. * She has a side effect of furosemide so I did not start this. * Her sodium level seems to be fairly stable right now. It is 128. * This is probably something is not going to get a lot better because of her being on routine narcotics . As long as the sodium level ranges about 130+/- 2 or 3 as it has then I think this could be the long-term goal. * I think it is okay for her to go home today as long she has close follow-up. She should get some blood work done early in the week and see Dr. Banda the following week. (2) COVID-19 virus infection: Code(s): U07.1 - COVID-19 Status: Acute Assessment and Plan: * as noted on admission testing * no hypoxia or respiratory symptoms * On room air (3) Urinary tract infection: Code(s): N39.0 - Urinary tract infection, site not specified Status: Acute Assessment and Plan: * as noted by admission UA and urine culture results * complicated by urinary retention - stock catheter in place * on Levaquin (4) Generalized weakness: Code(s): R53.1 - Weakness Status: Acute Assessment and Plan: * recent hospitalization and stay at rehab * contributing factors include UTI and hyponatremia * PT/OT as tolerated (5) Hypertension: Code(s): I10 - Essential (primary) hypertension Status: Chronic Assessment and Plan: * Blood pressure below 130 today. * follow trend of hemodynamics Subjective Date/time seen: 03/15/23 10:19 Interval history: Sharon is feeling about the same today. No shortness of breath No chest pain the patient is a bit thirsty. Exam Narrative: WDWN in NAD skin no rash or subcu nodules head ncat lungs clear bilaterally cor reg no rub or gallop abd BS+ nontender and soft ext no edema. Objective Data Vital Signs Vital Signs: Vital Signs - 24 hr 03/14/23 12:00 03/14/23 12:45 03/14/23 16:00 Temperature 98.4 F Pulse Rate 70 80 68 Respiratory Rate 17 Blood Pressure 115/68 Pulse Oximetry 96 Oxygen Delivery 03/14/23 17:46 03/14/23 20:41 03/14/23 19:30 Temperature 97.9 F Pulse Rate 74 70 Respiratory Rate 18 18 Blood Pressure 100/50 L 96/56 L 96/56 L Pulse Oximetry 95 98 Oxygen Delivery 03/14/23 19:35 03/14/23 19:37 03/14/23 20:00 Temperature Pulse Rate Respiratory Rate Blood Pressure 99/57 L 94/46 L
--- NOTE | 2023-03-15 10:19 | PM.PNNEP ---
Progress Note: A&P Assessment and Plan (1) Hyponatremia: Code(s): E87.1 - Hypo-osmolality and hyponatremia Status: Acute Assessment and Plan: acute versus acute on chronic versus chronic(?) Received the charts from [place] and looks like her sodium level was between 126 and 130 during the whole hospitalization. evaluation to date noted: TSH okay (on levothyroxine) cortisol a tad low --Cortrosyn stim test was negative. urine electrolytes non-prerenal SPEP pending CXR clear CT of head noted -- Low attenuation in the prakash, which may be seen with chronic small vessel ischemic disease and/or osmotic demyelination -- Brain MRI ordered SSRI (zoloft) discontinued No history of cancer and her cancer screening is up-to-date. on fluid restriction and salt tablets. She has a side effect of furosemide so I did not start this. Her sodium level seems to be fairly stable right now. It is 128. This is probably something is not going to get a lot better because of her being on routine narcotics . As long as the sodium level ranges about 130+/- 2 or 3 as it has then I think this could be the long-term goal. I think it is okay for her to go home today as long she has close follow-up. She should get some blood work done early in the week and see Dr. Banda the following week. (2) COVID-19 virus infection: Code(s): U07.1 - COVID-19 Status: Acute Assessment and Plan: as noted on admission testing no hypoxia or respiratory symptoms On room air (3) Urinary tract infection: Code(s): N39.0 - Urinary tract infection, site not specified Status: Acute Assessment and Plan: as noted by admission UA and urine culture results complicated by urinary retention - stock catheter in place on Levaquin (4) Generalized weakness: Code(s): R53.1 - Weakness Status: Acute Assessment and Plan: recent hospitalization and stay at rehab contributing factors include UTI and hyponatremia PT/OT as tolerated (5) Hypertension: Code(s): I10 - Essential (primary) hypertension Status: Chronic Assessment and Plan: Blood pressure below 130 today. follow trend of hemodynamics Subjective Date/time seen: 03/15/23 10:19 Interval history: Sharon is feeling about the same today. No shortness of breath No chest pain the patient is a bit thirsty. Exam Narrative: WDWN in NAD skin no rash or subcu nodules head ncat lungs clear bilaterally cor reg no rub or gallop abd BS+ nontender and soft ext no edema. Objective Data Vital Signs Vital Signs: Vital Signs - 24 hr 03/14/23 12:00 03/14/23 12:45 03/14/23 16:00 Temperature 98.4 F Pulse Rate 70 80 68 Respiratory Rate 17 Blood Pressure 115/68 Pulse Oximetry 96 Oxygen Delivery 03/14/23 17:46 03/14/23 20:41 03/14/23 19:30 Temperature 97.9 F Pulse Rate 74 70 Respiratory Rate 18 18 Blood Pressure 100/50 L 96/56 L 96/56 L Pulse Oximetry 95 98 Oxygen Delivery 03/14/23 19:35 03/14/23 19:37 03/14/23 20:00 Temperature Pulse Rate Respiratory Rate Blood Pressure 99/57 L 94/46 L Pulse Oximetry Oxygen Delivery Room Air 03/14/23 20:00 03/15/23 00:00 03/15/23 04:00 Temperature Pulse Rate 68 63 71 Respiratory Rate Blood Pressure Pulse Oximetry Oxygen Delivery 03/15/23 05:27 03/15/23 09:40 03/15/23 08:00 Temperature 97.6 F 97.6 F Pulse Rate 70 77 66 Respiratory Rate 16 18 Blood Pressure 111/50 L 116/46 L Pulse Oximetry 97 98 Oxygen Delivery Intake/Output Intake/Output: Intake & Output 03/12/23 03/13/23 03/14/23 03/15/23 23:59 23:59 23:59 23:59 Intake Total 1989 1430 1350 240 Output Total 2024 1375 1650 300 Balance -35 55 -300 -60 Meds/Results Medications: Active Medications Generic Name Dose Route Start Last Admin Trade Name Freq PRN Reason Stop Dose Admin Acet
[2023-03-15] MEDS: MICONAZOLE NITRATE 2% CREAM 30 GM TUBE 1 APPLIC TOPICAL ×2 (10:34→16:20)
--- NOTE | 2023-03-15 11:49 | P.DS_ITS ---
DS: Admitting Diagnosis Discharge Date 03/15/23 Admitting Diagnosis weakness, UTI, COVID, hyponatremia DS: Discharge Diagnosis Discharge Diagnosis (1) Hyponatremia: Code(s): E87.1 - Hypo-osmolality and hyponatremia Status: Acute Assessment and Plan: Acute versus acute on chronic hyponatremia. She reportedly had problems with hyponatremia when hospitalized at [place] last month and was started on sodium tablets. She looks dry on exam and will be cautiously hydrated with close monito ring of volume status and electrolytes. * TSH 3.1, urine sodium 108 and serum osmolality pending * IV fluids discontinued on 03/12/2023 * Trend sodium * Random cortisol within normal limits * ACTH 11 * Patient does take chronic opioid medications. * 03/12 Sodium dropped from 129 to 125. Increased NaCl to 1g bid. Discontinue Zoloft. Recheck urine Na and Cr. * 03/13 Sodium is still low at 125. Will consult nephrology regarding hyponatremia. * 03/14 Sodium 127. Nephrology following. Fluid restricted to 1500 mL. * 03/15 discussed with nephrology today and they have okayed patient for discharge. Patient's sodium 128. advised follow-up with Nephrology as an outpatient. Will repeat labs in 2-3 days (2) COVID: Code(s): U07.1 - COVID-19 Status: Acute Assessment and Plan: Supportive care. She has no oxygen requirement thus no indication for dexamethasone or remdesivir. * She reports possible exposure in the last week, but is vague in her answers regarding this. * She endorses prior COVID19 vaccination, but is unsure of her booster status. (3) Generalized weakness: Code(s): R53.1 - Weakness Status: Acute Assessment and Plan: Secondary to a combination of the above. * No focal findings on exam. PT/OT consulted. * Likely secondary to hyponatremia. (4) Hypertension: Code(s): I10 - Essential (primary) hypertension Status: Chronic Assessment and Plan: Blood pressures stable Continue amlodipine, hydralazine, and lisinopril as BP tolerates. (5) Acute cystitis without hematuria: Code(s): N30.00 - Acute cystitis without hematuria Status: Acute Assessment and Plan: UA shows trace leukocyte esterase and 4+ bacteria, 0-5 white blood cells were noted on microscopy. * Patient with acute urinary retention and suprapubic pain on exam. * Urine culture with pseudomonas aeruginosa growth >100,000 CFU * Cipro allergy noted and family reports reaction is diarrhea only. No hives, pruritus, or anaphylaxis with prior use. * Start Levaquin 750 mg PO daily x 5 days for acute cystitis. 1st dose 03/11/2023. * 03/15 Levaquin antibiotic course completed (6) Acute urinary retention: Code(s): R33.8 - Other retention of urine Status: Acute Assessment and Plan: bladder scan >1300 mL on admission with patient c/o pain and tenderness on exam. Denies prior history of urinary retention. * Most likely associated with acute UTI. * Patient failed voiding trial and Jauregui catheter reinserted on 03/12/2023. * Advised follow-up with Urology in 10 days for catheter removal. Start tamsulosin 0.4 mg daily. DS: Summary Hospital Course Reason for hospitalization: Weakness, UTI, COVID, hyponatremia Time Spent with Patient Time attestation: Total time spent providing and/or coordinating discharge services: Exam Narrative: GENERAL: Co
--- NOTE | 2023-03-15 11:49 | PM.DS ---
DS: Admitting Diagnosis Discharge Date 03/15/23 Admitting Diagnosis weakness, UTI, COVID, hyponatremia DS: Discharge Diagnosis Discharge Diagnosis (1) Hyponatremia: Code(s): E87.1 - Hypo-osmolality and hyponatremia Status: Acute Assessment and Plan: Acute versus acute on chronic hyponatremia. She reportedly had problems with hyponatremia when hospitalized at [facility] last month and was started on sodium tablets. She looks dry on exam and will be cautiously hydrated with close monitoring of volume status and electrolytes. TSH 3.1, urine sodium 108 and serum osmolality pending IV fluids discontinued on 03/12/2023 Trend sodium Random cortisol within normal limits ACTH 11 Patient does take chronic opioid medications. 03/12 Sodium dropped from 129 to 125. Increased NaCl to 1g bid. Discontinue Zoloft. Recheck urine Na and Cr. 03/13 Sodium is still low at 125. Will consult nephrology regarding hyponatremia. 03/14 Sodium 127. Nephrology following. Fluid restricted to 1500 mL. 03/15 discussed with nephrology today and they have okayed patient for discharge. Patient's sodium 128. advised follow-up with Nephrology as an outpatient. Will repeat labs in 2-3 days (2) COVID: Code(s): U07.1 - COVID-19 Status: Acute Assessment and Plan: Supportive care. She has no oxygen requirement thus no indication for dexamethasone or remdesivir. She reports possible exposure in the last week, but is vague in her answers regarding this. She endorses prior COVID19 vaccination, but is unsure of her booster status. (3) Generalized weakness: Code(s): R53.1 - Weakness Status: Acute Assessment and Plan: Secondary to a combination of the above. No focal findings on exam. PT/OT consulted. Likely secondary to hyponatremia. (4) Hypertension: Code(s): I10 - Essential (primary) hypertension Status: Chronic Assessment and Plan: Blood pressures stable Continue amlodipine, hydralazine, and lisinopril as BP tolerates. (5) Acute cystitis without hematuria: Code(s): N30.00 - Acute cystitis without hematuria Status: Acute Assessment and Plan: UA shows trace leukocyte esterase and 4+ bacteria, 0-5 white blood cells were noted on microscopy. Patient with acute urinary retention and suprapubic pain on exam. Urine culture with pseudomonas aeruginosa growth >100,000 CFU Cipro allergy noted and family reports reaction is diarrhea only. No hives, pruritus, or anaphylaxis with prior use. Start Levaquin 750 mg PO daily x 5 days for acute cystitis. 1st dose 03/11/2023. 03/15 Levaquin antibiotic course completed (6) Acute urinary retention: Code(s): R33.8 - Other retention of urine Status: Acute Assessment and Plan: bladder scan >1300 mL on admission with patient c/o pain and tenderness on exam. Denies prior history of urinary retention. Most likely associated with acute UTI. Patient failed voiding trial and Jauregui catheter reinserted on 03/12/2023. Advised follow-up with Urology in 10 days for catheter removal. Start tamsulosin 0.4 mg daily. DS: Summary Hospital Course Reason for hospitalization: Weakness, UTI, COVID, hyponatremia Time Spent with Patient Time attestation: Total time spent providing and/or coordinating discharge services: Exam Narrative: GENERAL: Comfortable, no acute distress HENMT: moist mucous membranes EYES: EOM intact b/l NECK: no lymphadenopathy RESPIRATORY: clear to auscultation CARDIO: RRR GI: soft, nontender, bowel sounds present SKIN: no rashes EXTREMITIES: no edema, redness or tenderness DS: Data Data Completed and Pending Labs on day of discharge: Labs from last 24 hours 03/15/23 03/15/23 03/11/23 05:52 05:51 05:10 WBC 5.7 RBC 3.62 L Hgb 10.6 L Hct 31.7 L MCV 87.6 MCH 29.3 MCHC 33.4 RDW 15.2 H Plt Coun
--- NOTE | 2023-03-15 12:58 | P.PNIM_ITS ---
Progress Note: A&P Assessment and Plan (1) Hyponatremia: Code(s): E87.1 - Hypo-osmolality and hyponatremia Status: Acute Assessment and Plan: Acute versus acute on chronic hyponatremia. She reportedly had problems with hyponatremia when hospitalized at [facility] last month and was started on sodium tablets. She looks dry on exam and will be cautiously hydrated with close monitoring of volume status and electrolytes. * TSH 3.1, urine sodium 108 and serum osmolality pending * IV fluids discontinued on 03/12/2023 * Trend sodium * Random cortisol within normal limits * ACTH 11 * Patient does take chronic opioid medications. * 03/12 Sodium dropped from 129 to 125. Increased NaCl to 1g bid. Discontinue Zoloft. Recheck urine Na and Cr. * 03/13 Sodium is still low at 125. Will consult nephrology regarding hyponatremi a. * 03/14 Sodium 127. Nephrology following. Fluid restricted to 1500 mL. * 03/15 discussed with nephrology today and they have okayed patient for discharge. Patient's sodium 128. advised follow-up with Nephrology as an outpatient. Will repeat labs in 2-3 days. (2) COVID: Code(s): U07.1 - COVID-19 Status: Acute Assessment and Plan: Supportive care. She has no oxygen requirement thus no indication for dexamethasone or remdesivir. * She reports possible exposure in the last week, but is vague in her answers regarding this. * She endorses prior COVID19 vaccination, but is unsure of her booster status. (3) Generalized weakness: Code(s): R53.1 - Weakness Status: Acute Assessment and Plan: Secondary to a combination of the above. * No focal findings on exam. PT/OT consulted. * Likely secondary to hyponatremia. (4) Hypertension: Code(s): I10 - Essential (primary) hypertension Status: Chronic Assessment and Plan: Blood pressures stable Continue amlodipine, hydralazine, and lisinopril as BP tolerates. (5) Acute cystitis without hematuria: Code(s): N30.00 - Acute cystitis without hematuria Status: Acute Assessment and Plan: UA shows trace leukocyte esterase and 4+ bacteria, 0-5 white blood cells were noted on microscopy. * Patient with acute urinary retention and suprapubic pain on exam. * Urine culture with pseudomonas aeruginosa growth >100,000 CFU. * Cipro allergy noted and family reports reaction is diarrhea only. No hives, pruritus, or anaphylaxis with prior use. * Start Levaquin 750 mg PO daily x 5 days for acute cystitis. 1st dose 03/11/2023. * 03/15 Levaquin antibiotic course completed. (6) Acute urinary retention: Code(s): R33.8 - Other retention of urine Status: Acute Assessment and Plan: bladder scan >1300 mL on admission with patient c/o pain and tenderness on exam. Denies prior history of urinary retention. * Most likely associated with acute UTI. * Patient failed voiding trial and Jauregui catheter reinserted on 03/12/2023. * Advised follow-up with Urology in 10 days for catheter removal. Start tamsulosin 0.4 mg daily. Subjective Date/time seen: 03/15/23 12:58 Interval history: Patient resting in bed with no new complaints at this time. Patient's family is appealing discharge. Review of Systems Review of Systems: All systems reviewed & are unremarkable except as noted in HPI and below Exam Narrative: GENERAL: Comfortable, no
--- NOTE | 2023-03-15 12:58 | PM.IMPN ---
Progress Note: A&P Assessment and Plan (1) Hyponatremia: Code(s): E87.1 - Hypo-osmolality and hyponatremia Status: Acute Assessment and Plan: Acute versus acute on chronic hyponatremia. She reportedly had problems with hyponatremia when hospitalized at [facility] last month and was started on sodium tablets. She looks dry on exam and will be cautiously hydrated with close monitoring of volume status and electrolytes. TSH 3.1, urine sodium 108 and serum osmolality pending IV fluids discontinued on 03/12/2023 Trend sodium Random cortisol within normal limits ACTH 11 Patient does take chronic opioid medications. 03/12 Sodium dropped from 129 to 125. Increased NaCl to 1g bid. Discontinue Zoloft. Recheck urine Na and Cr. 03/13 Sodium is still low at 125. Will consult nephrology regarding hyponatremia. 03/14 Sodium 127. Nephrology following. Fluid restricted to 1500 mL. 03/15 discussed with nephrology today and they have okayed patient for discharge. Patient's sodium 128. advised follow-up with Nephrology as an outpatient. Will repeat labs in 2-3 days. (2) COVID: Code(s): U07.1 - COVID-19 Status: Acute Assessment and Plan: Supportive care. She has no oxygen requirement thus no indication for dexamethasone or remdesivir. She reports possible exposure in the last week, but is vague in her answers regarding this. She endorses prior COVID19 vaccination, but is unsure of her booster status. (3) Generalized weakness: Code(s): R53.1 - Weakness Status: Acute Assessment and Plan: Secondary to a combination of the above. No focal findings on exam. PT/OT consulted. Likely secondary to hyponatremia. (4) Hypertension: Code(s): I10 - Essential (primary) hypertension Status: Chronic Assessment and Plan: Blood pressures stable Continue amlodipine, hydralazine, and lisinopril as BP tolerates. (5) Acute cystitis without hematuria: Code(s): N30.00 - Acute cystitis without hematuria Status: Acute Assessment and Plan: UA shows trace leukocyte esterase and 4+ bacteria, 0-5 white blood cells were noted on microscopy. Patient with acute urinary retention and suprapubic pain on exam. Urine culture with pseudomonas aeruginosa growth >100,000 CFU. Cipro allergy noted and family reports reaction is diarrhea only. No hives, pruritus, or anaphylaxis with prior use. Start Levaquin 750 mg PO daily x 5 days for acute cystitis. 1st dose 03/11/2023. 03/15 Levaquin antibiotic course completed. (6) Acute urinary retention: Code(s): R33.8 - Other retention of urine Status: Acute Assessment and Plan: bladder scan >1300 mL on admission with patient c/o pain and tenderness on exam. Denies prior history of urinary retention. Most likely associated with acute UTI. Patient failed voiding trial and Jauregui catheter reinserted on 03/12/2023. Advised follow-up with Urology in 10 days for catheter removal. Start tamsulosin 0.4 mg daily. Subjective Date/time seen: 03/15/23 12:58 Interval history: Patient resting in bed with no new complaints at this time. Patient's family is appealing discharge. Review of Systems Review of Systems: All systems reviewed & are unremarkable except as noted in HPI and below Exam Narrative: GENERAL: Comfortable, no acute distress HENMT: moist mucous membranes EYES: EOM intact b/l NECK: no lymphadenopathy RESPIRATORY: clear to auscultation CARDIO: RRR GI: soft, nontender, bowel sounds present SKIN: no rashes EXTREMITIES: no edema, redness or tenderness Objective Data Vital Signs Vital Signs: Vital Signs - 24 hr 03/14/23 16:00 03/14/23 17:46 03/14/23 20:41 Temperature 97.9 F Pulse Rate 68 74 70 Respiratory Rate 18 18 Blood Pressure 100/50 L 96/56 L Pulse Oximetry 95 98 Oxygen Delivery 03/14/23 19:30 03/14/23 19:35 0
[2023-03-15] MEDS: HYDROcodone/acetaminophen (*CRX) 10-325 MG TABLET 1 TAB PO ×2 (14:28→22:32)
[2023-03-16 05:36] VITALS: BP 126/45; PULSE 64; RESP 18; TEMP 36.8; O2SAT 98
[2023-03-16 05:47] LABS: Hematocrit 32.7 % (37.0-47.0); Hemoglobin 10.7 g/dL (12.0-15.0); Mean Corpuscular HGB Conc 32.7 g/dl (32-36); Mean Corpuscular Volume 88.6 fl (80-100); Mean Platelet Volume 8.9 fl (7.4-10.4); Platelet Count Result 340 k/mm3 (150-375); Red Blood Count 3.69 M/mm3 (4.2-5.4); Red Cell Distribution Width 15.4 % (11.5-14.5)
[2023-03-16 05:56] LABS: Anion Gap 4 mmol/L (8-16); Blood Urea Nitrogen 16 mg/dL (7-17); Calcium 8.7 mg/dL (8.4-10.2); Carbon Dioxide 29 mmol/L (22-30); Chloride 97 mmol/L (98-107); Estimated CRCL calculation 49 ml/min; Estimated Glomerular Filt Rate > 60; Glucose 83 mg/dL (65-110); Sodium 130 mmol/L (137-145)
[2023-03-16] MEDS: LEVOTHYROXINE SODIUM 25 MCG TABLET PO (06:24)
[2023-03-16] MEDS: LEVOTHYROXINE SODIUM 112 MCG TABLET PO (06:24)
[2023-03-16] MEDS: HYDROcodone/acetaminophen (*CRX) 10-325 MG TABLET 1 TAB PO ×2 (06:24→14:22)
[2023-03-16] MEDS: DICYCLOMINE HCL 10 MG CAPSULE PO ×4 (09:22→20:36)
[2023-03-16] MEDS: SODIUM CHLORIDE 1 GM TABLET PO ×2 (09:22→17:07)
[2023-03-16] MEDS: FERROUS SULFATE 324 MG TABLET PO ×2 (09:22→17:07)
[2023-03-16] MEDS: CHOLECALCIFEROL 1,000 UNITS TABLET 2000 UNITS PO (09:22)
[2023-03-16] MEDS: polyethylene glycoL 3350 17 GM POWD.PACK PO (09:22)
[2023-03-16] MEDS: FAMOTIDINE 20 MG TABLET 40 MG PO ×2 (09:22→17:06)
[2023-03-16] MEDS: SIMVASTATIN 20 MG TABLET 40 MG PO (09:22)
[2023-03-16] MEDS: GABAPENTIN 300 MG CAPSULE PO ×3 (09:22→17:07)
[2023-03-16] MEDS: lisinopriL 20 MG TABLET PO ×2 (09:23→17:07)
[2023-03-16] MEDS: TAMSULOSIN HCL 0.4 MG CAPSULE PO (09:23)
[2023-03-16] MEDS: CLOBETASOL PROPIONATE 0.05% CREAM 15 GM 1 APPLIC TOPICAL ×2 (09:24→17:06)
[2023-03-16] MEDS: amLODIPine BESYLATE 5 MG TABLET 10 MG BY MOUTH (09:24)
[2023-03-16] MEDS: ASPIRIN 81 MG CHEWABLE TABLET PO (09:24)
[2023-03-16] MEDS: MICONAZOLE NITRATE 2% CREAM 30 GM TUBE 1 APPLIC TOPICAL ×2 (09:24→17:07)
--- NOTE | 2023-03-16 11:03 | PM.PNNEP ---
Progress Note: A&P Assessment and Plan (1) Hyponatremia: Code(s): E87.1 - Hypo-osmolality and hyponatremia Status: Acute Assessment and Plan: acute on chronic during hospitalization at [facility] several weeks ago, her sodium level was running ~ 126 - 130 evaluation to date noted: TSH okay (on levothyroxine) cortisol a tad low --Cortrosyn stim test was negative. urine electrolytes non-prerenal SPEP/UPEP pending CXR clear CT of head noted -- Low attenuation in the prakash, which may be seen with chronic small vessel ischemic disease and/or osmotic demyelination -- however, brain MRI without evidence of ODS SSRI (zoloft) discontinued no history of cancer and her cancer screening is up-to-date. on fluid restriction and salt tablets given her chronic need for narcotics, not sure sodium will ever be normal follow trend of repeat sodium levels (2) COVID-19 virus infection: Code(s): U07.1 - COVID-19 Status: Acute Assessment and Plan: as noted on admission testing no hypoxia or respiratory symptoms on room air (3) Urinary tract infection: Code(s): N39.0 - Urinary tract infection, site not specified Status: Acute Assessment and Plan: as noted by admission UA and urine culture results complicated by urinary retention - stock catheter in place on antibiotics (4) Generalized weakness: Code(s): R53.1 - Weakness Status: Acute Assessment and Plan: recent hospitalization and stay at rehab contributing factors include UTI and hyponatremia PT/OT as tolerated (5) Hypertension: Code(s): I10 - Essential (primary) hypertension Status: Chronic Assessment and Plan: reasonable control follow trend of hemodynamics Will continue to follow. Subjective Date/time seen: 03/16/23 11:03 Chart reviewed since last seen -- sodium appears to have stabilized/improved with current therapy; no apparent distress voiced at the time of my visit; no issues/events overnight or earlier this morning; asking me is will she need to continue fluid restriction on discharge. Exam Narrative: General: elderly WD/WN female in NAD Heart: normal S1 and S2; no rub Lungs: clear to auscultation Abdomen: soft, nontender, nondistended, positive bowel sounds Extremities: no cyanosis or clubbing; no edema Skin: warm and dry Objective Data Vital Signs Vital Signs: Vital Signs Temp Pulse Resp BP Pulse Ox O2 Del Method 03/16/23 05:36 98.2 F 64 18 126/45 L 98 03/15/23 21:00 61 16 99 Room Air 03/15/23 20:47 131/60 03/15/23 20:45 132/56 L 03/15/23 20:47 99.1 F 61 16 107/41 L 99 03/15/23 20:00 107/41 L 03/15/23 16:42 62 03/15/23 16:00 76 03/15/23 16:21 90 16 110/68 98 03/15/23 14:59 98.4 F 89 16 109/66 97 03/15/23 13:12 98.6 F 78 18 105/44 L 97 Intake/Output Intake/Output: Intake & Output 03/13/23 03/14/23 03/15/23 03/16/23 23:59 23:59 23:59 23:59 Intake Total 1430 1350 720 360 Output Total 1375 1650 800 200 Balance 55 -300 -80 160 Meds/Results Medications: Active Medications Generic Name Dose Route Start Last Admin Trade Name Freq PRN Reason Stop Dose Admin Acetaminophen 650 mg 03/08/23 21:51 03/12/23 20:24 Acetaminophen 325 Mg Tablet PO 650 mg Q6H PRN Administration Mild Pain (1-3) or Fever Hydrocodone Bitart/Acetaminophen 1 tab 03/08/23 21:55 03/16/23 06:24 Hydrocodone/Acetaminophen (*Crx) 10-325 Mg Tablet PO 1 tab TID PRN Administration Pain (Scale Score 4-6) Amlodipine Besylate 10 mg 03/09/23 09:00 03/16/23 09:24 Amlodipine Besylate 5 Mg Tablet BY MOUTH 10 mg DAILY ANNY Administration Aspirin 81 mg 03/09/23 09:00 03/16/23 09:24 Aspirin 81 Mg Chewable Tablet PO 81 mg DAILY ANNY Administration Calcium Carbonate 200 mg 03/08/23 21:55 Calcium Carbonate (Tu
--- NOTE | 2023-03-16 11:03 | P.PNNP_ITS ---
Progress Note: A&P Assessment and Plan (1) Hyponatremia: Code(s): E87.1 - Hypo-osmolality and hyponatremia Status: Acute Assessment and Plan: * acute on chronic * during hospitalization at [facility] several weeks ago, her sodium level was running ~ 126 - 130 * evaluation to date noted: * TSH okay (on levothyroxine) * cortisol a tad low --Cortrosyn stim test was negative. * urine electrolytes non-prerenal * SPEP/UPEP pending * CXR clear * CT of head noted -- Low attenuation in the prakash, which may be seen with chronic small vessel ischemic disease and/or osmotic demyelination -- however, brain MRI without evidence of ODS * SSRI (zoloft) discontinued * no history of cancer and her cancer screening is up-to-date. * on fluid restriction and salt tablets * given her chronic need for narcotics, not sure sodium will ever be normal * follow trend of repeat sodium levels (2) COVID-19 virus infection: Code(s): U07.1 - COVID-19 Status: Acute Assessment and Plan: * as noted on admission testing * no hypoxia or respiratory symptoms * on room air (3) Urinary tract infection: Code(s): N39.0 - Urinary tract infection, site not specified Status: Acute Assessment and Plan: * as noted by admission UA and urine culture results * complicated by urinary retention - stock catheter in place * on antibiotics (4) Generalized weakness: Code(s): R53.1 - Weakness Status: Acute Assessment and Plan: * recent hospitalization and stay at rehab * contributing factors include UTI and hyponatremia * PT/OT as tolerated (5) Hypertension: Code(s): I10 - Essential (primary) hypertension Status: Chronic Assessment and Plan: * reasonable control * follow trend of hemodynamics Will continue to follow. Subjective Date/time seen: 03/16/23 11:03 Chart reviewed since last seen -- sodium appears to have stabilized/improved with current therapy; no apparent distress voiced at the time of my visit; no issues/events overnight or earlier this morning; asking me is will she need to continue fluid restriction on discharge. Exam Narrative: General: elderly WD/WN female in NAD Heart: normal S1 and S2; no rub Lungs: clear to auscultation Abdomen: soft, nontender, nondistended, positive bowel sounds Extremities: no cyanosis or clubbing; no edema Skin: warm and dry Objective Data Vital Signs Vital Signs: Vital Signs Temp Pulse Resp BP Pulse Ox O2 Del Method 03/16/23 05:36 98.2 F 64 18 126/45 L 98 03/15/23 21:00 61 16 99 Room Air 03/15/23 20:47 131/60 03/15/23 20:45 132/56 L 03/15/23 20:47 99.1 F 61 16 107/41 L 99 03/15/23 20:00 107/41 L 03/15/23 16:42 62 03/15/23 16:00 76 03/15/23 16:21 90 16 110/68 98 03/15/23 14:59 98.4 F 89 16 109/66 97 03/15/23 13:12 98.6 F 78 18 105/44 L 97 Intake/Output Intake/Output: Intake & Output 03/13/23 03/14/23 03/15/23 03/16/23 23:59 23:59 23:59 23:59 Intake Total 1430 1350 720 360 Output Total 1375 1650 800 200 Balance 55 -300 -80 160 Meds/Results Medications:
--- NOTE | 2023-03-16 11:06 | P.PNIM_ITS ---
Progress Note: A&P Assessment and Plan (1) Hyponatremia: Code(s): E87.1 - Hypo-osmolality and hyponatremia Status: Acute Assessment and Plan: Acute versus acute on chronic hyponatremia. She reportedly had problems with hyponatremia when hospitalized at [place] last month and was started on sodium tablets. She looks dry on exam and will be cautiously hydrated with close monitoring of volume status and electrolytes. * TSH 3.1, urine sodium 108 and serum osmolality pending * IV fluids discontinued on 03/12/2023 * Trend sodium * Random cortisol within normal limits * ACTH 11 * Patient does take chronic opioid medications. * 03/12 Sodium dropped from 129 to 125. Increased NaCl to 1g bid. Discontinue Zoloft. Recheck urine Na and Cr. * 03/13 Sodium is still low at 125. Will consult nephrology regarding hyponatremi a. * 03/14 Sodium 127. Nephrology following. Fluid restricted to 1500 mL. * 03/15 discussed with nephrology today and they have okayed patient for discharge. Patient's sodium 128. advised follow-up with Nephrology as an outpatient. Will repeat labs in 2-3 days * 03/16 Sodium today 130. (2) COVID: Code(s): U07.1 - COVID-19 Status: Acute Assessment and Plan: Supportive care. She has no oxygen requirement thus no indication for dexamethasone or remdesivir. * She reports possible exposure in the last week, but is vague in her answers regarding this. * She endorses prior COVID19 vaccination, but is unsure of her booster status. (3) Generalized weakness: Code(s): R53.1 - Weakness Status: Acute Assessment and Plan: Secondary to a combination of the above. * No focal findings on exam. PT/OT consulted. * Likely secondary to hyponatremia. (4) Hypertension: Code(s): I10 - Essential (primary) hypertension Status: Chronic Assessment and Plan: Blood pressures stable Continue amlodipine, hydralazine, and lisinopril as BP tolerates. (5) Acute cystitis without hematuria: Code(s): N30.00 - Acute cystitis without hematuria Status: Acute Assessment and Plan: UA shows trace leukocyte esterase and 4+ bacteria, 0-5 white blood cells were noted on microscopy. * Patient with acute urinary retention and suprapubic pain on exam. * Urine culture with pseudomonas aeruginosa growth >100,000 CFU * Cipro allergy noted and family reports reaction is diarrhea only. No hives, pruritus, or anaphylaxis with prior use. * Start Levaquin 750 mg PO daily x 5 days for acute cystitis. 1st dose 03/11/2023. * 03/15 Levaquin antibiotic course completed (6) Acute urinary retention: Code(s): R33.8 - Other retention of urine Status: Acute Assessment and Plan: bladder scan >1300 mL on admission with patient c/o pain and tenderness on exam. Denies prior history of urinary retention. * Most likely associated with acute UTI. * Patient failed voiding trial and Jauregui catheter reinserted on 03/12/2023. * Advised follow-up with Urology in 10 days for catheter removal. Start tamsulosin 0.4 mg daily. Subjective Date/time seen: 03/16/23 11:06 Interval history: Patient continues to do well work with therapy. Patient's discharge has been appealed by her family and we are waiting answers on the appeal. No new complaints at this time. Review of Systems Review of Systems: All systems reviewed & are unremarkable except as noted in HPI
--- NOTE | 2023-03-16 11:06 | PM.IMPN ---
Progress Note: A&P Assessment and Plan (1) Hyponatremia: Code(s): E87.1 - Hypo-osmolality and hyponatremia Status: Acute Assessment and Plan: Acute versus acute on chronic hyponatremia. She reportedly had problems with hyponatremia when hospitalized at [facility] last month and was started on sodium tablets. She looks dry on exam and will be cautiously hydrated with close monitoring of volume status and electrolytes. TSH 3.1, urine sodium 108 and serum osmolality pending IV fluids discontinued on 03/12/2023 Trend sodium Random cortisol within normal limits ACTH 11 Patient does take chronic opioid medications. 03/12 Sodium dropped from 129 to 125. Increased NaCl to 1g bid. Discontinue Zoloft. Recheck urine Na and Cr. 03/13 Sodium is still low at 125. Will consult nephrology regarding hyponatremia. 03/14 Sodium 127. Nephrology following. Fluid restricted to 1500 mL. 03/15 discussed with nephrology today and they have okayed patient for discharge. Patient's sodium 128. advised follow-up with Nephrology as an outpatient. Will repeat labs in 2-3 days 03/16 Sodium today 130. (2) COVID: Code(s): U07.1 - COVID-19 Status: Acute Assessment and Plan: Supportive care. She has no oxygen requirement thus no indication for dexamethasone or remdesivir. She reports possible exposure in the last week, but is vague in her answers regarding this. She endorses prior COVID19 vaccination, but is unsure of her booster status. (3) Generalized weakness: Code(s): R53.1 - Weakness Status: Acute Assessment and Plan: Secondary to a combination of the above. No focal findings on exam. PT/OT consulted. Likely secondary to hyponatremia. (4) Hypertension: Code(s): I10 - Essential (primary) hypertension Status: Chronic Assessment and Plan: Blood pressures stable Continue amlodipine, hydralazine, and lisinopril as BP tolerates. (5) Acute cystitis without hematuria: Code(s): N30.00 - Acute cystitis without hematuria Status: Acute Assessment and Plan: UA shows trace leukocyte esterase and 4+ bacteria, 0-5 white blood cells were noted on microscopy. Patient with acute urinary retention and suprapubic pain on exam. Urine culture with pseudomonas aeruginosa growth >100,000 CFU Cipro allergy noted and family reports reaction is diarrhea only. No hives, pruritus, or anaphylaxis with prior use. Start Levaquin 750 mg PO daily x 5 days for acute cystitis. 1st dose 03/11/2023. 03/15 Levaquin antibiotic course completed (6) Acute urinary retention: Code(s): R33.8 - Other retention of urine Status: Acute Assessment and Plan: bladder scan >1300 mL on admission with patient c/o pain and tenderness on exam. Denies prior history of urinary retention. Most likely associated with acute UTI. Patient failed voiding trial and Jauregui catheter reinserted on 03/12/2023. Advised follow-up with Urology in 10 days for catheter removal. Start tamsulosin 0.4 mg daily. Subjective Date/time seen: 03/16/23 11:06 Interval history: Patient continues to do well work with therapy. Patient's discharge has been appealed by her family and we are waiting answers on the appeal. No new complaints at this time. Review of Systems Review of Systems: All systems reviewed & are unremarkable except as noted in HPI and below Exam Narrative: GENERAL: Comfortable, no acute distress HENMT: moist mucous membranes EYES: EOM intact b/l NECK: no lymphadenopathy RESPIRATORY: clear to auscultation CARDIO: RRR GI: soft, nontender, bowel sounds present SKIN: no rashes EXTREMITIES: no edema, redness or tenderness Objective Data Vital Signs Vital Signs: Vital Signs - 24 hr 03/15/23 12:04 03/15/23 13:12 03/15/23 14:59 Temperature 98.6 F 98.4 F Pulse Rate 82 78 89 Respiratory Rate 18 16 Blood Pre
--- NOTE | 2023-03-16 12:13 | WPDURCON ---
Assessment and Plan Assessment and plan (1) Urinary tract infection: Code(s): N39.0 - Urinary tract infection, site not specified Status: Acute Assessment and Plan: Growing Pseudomonas on culture from 03/08/23. It doesn't appear that any treatment has been given thus far. She has multiple allergies to PO sensitive antibiotics, however Ciprofloxacin is listed as Diarrhea, which is a sensitivity not an allergy. Therefore I recommend treatment of her UTI with Ciprofloxacin 500mg BID x 10 days. (2) Acute urinary retention: Code(s): R33.8 - Other retention of urine Status: Acute Assessment and Plan: Keep stock in place, follow up in one week to 10 days for repeat urine culture in the office. We discussed the likelihood of a neurogenic bladder. We also discussed scheduling urodynamics if we can get her urine cleared. She understands the possibility of needing a catheter lifelong, possibly even an SP tube, pending results of Urodynamics. Urology Consult Note HPI Date Seen: 03/16/23 Time Seen: 10:00 Requesting Physician: Janice Almeida MD Primary Care Provider: PHYSICIAN NOT ON STAFF Consult Narrative Reason for consult: Retention/UTI Narrative: Sharon Chao is a 82 year old female who initially presented to the ER on 03/08/23for weakness and dysuria. She was discharged from [facility] the day prior d/t a recent hospital admission at [facility] for a UTI and hypokalemia 3 weeks before rehab. The patient has had a stock in during this admission, but had a voiding trial on 03/12/23, unfortunately she failed and had >1300cc in her bladder requiring a reinsertion of the stock. Her culture from 03/08/23 grew pseudomonas. She was started on Tamsulosin 0.4mg after her re-insertion of the stock. She states she has frequent UTI's and her symptoms include dysuria, frequency, urgency. She states at home she has no trouble urinating normally. Review of Systems Respiratory: Respiratory: Reports no additional respiratory complaints Gastrointestinal: Gastrointestinal: Denies abdominal pain, Denies nausea and Denies vomiting Genitourinary: Genitourinary: Denies hematuria, Denies nocturia, Denies dysuria, Denies pelvic pain, Denies flank pain, Denies urinary hesitancy and Denies urinary urgency [facility] Past Medical History Medical History Dyslipidemia Gastroesophageal reflux disease Hypertension Hypothyroidism Surgical History Surgical History History of appendectomy History of cholecystectomy History of hysterectomy Family History Family History Other Hypertension Social History Social History Social History: Surrogate medical decision maker: Nohemy Carbajal, daughter. Code status: Full code. Smoking status: Former smoker Alcohol intake: never Substance use: never Lack of Transportation: No Lack of Food: Never True Current Housing: I Have Housing Concerned About Future Housing: No Difficulty Paying Gas/Electric Bills: No Difficulty Paying for Meds: No Currently Unemployed: No Education: High School Diploma/GED Difficulty w/ Childcare or Family Care: No Additional living arrangements comments: Currently staying with daughter Nohemy. Spiritual care concerns: No Meds Home Medications and Allergies Home Medications Medication Instructions Recorded Confirmed Type acetaminophen 650 mg tablet 650 mg PO Q4H PRN Pain (Scale 03/08/23 03/08/23 History Score 1-3) amlodipine 10 mg tablet 10 mg DAILY 03/08/23 03/08/23 History aspirin 81 mg chewable tablet 81 mg PO DAILY 03/08/23 03/08/23 History calcium carbonate 200 mg calcium 200 mg PO TID PRN Indigestion 03/08/23 03/08/23 History (500 mg) chewable tablet (Antacid (
[2023-03-16 14:06] VITALS: BP 102/47; BP 106/40; PULSE 71; RESP 16; TEMP 36.4; O2SAT 100
[2023-03-16 14:07] VITALS: BP 102/47; PULSE 71; RESP 16; TEMP 36.4; O2SAT 100
[2023-03-16] MEDS: SENNA/DOCUSATE SODIUM TABLET 2 TAB PO (20:36)
[2023-03-16 22:00] VITALS: BP 106/45; PULSE 65; RESP 20; TEMP 36.1; O2SAT 98
[2023-03-17 05:25] LABS: Hematocrit 31.4 % (37.0-47.0); Hemoglobin 10.5 g/dL (12.0-15.0); Mean Corpuscular HGB Conc 33.4 g/dl (32-36); Mean Corpuscular Hemoglobin 29.6 pg (26-34); Mean Corpuscular Volume 88.5 fl (80-100); Mean Platelet Volume 8.9 fl (7.4-10.4); Platelet Count Result 346 k/mm3 (150-375); Red Blood Count 3.55 M/mm3 (4.2-5.4); Red Cell Distribution Width 15.4 % (11.5-14.5); White Blood Count 6.7 K/mm3 (4.5-10.0)
[2023-03-17 05:26] LABS: Anion Gap 6 mmol/L (8-16); Blood Urea Nitrogen 16 mg/dL (7-17); Calcium 8.3 mg/dL (8.4-10.2); Carbon Dioxide 26 mmol/L (22-30); Chloride 96 mmol/L (98-107); Estimated CRCL calculation 56 ml/min; Estimated Glomerular Filt Rate > 60; Glucose 79 mg/dL (65-110); Sodium 128 mmol/L (137-145)
[2023-03-17 06:00] VITALS: BP 128/49; PULSE 70; RESP 20; TEMP 36.7; O2SAT 99
[2023-03-17 06:05] VITALS: BP 122/57; PULSE 73; RESP 21; TEMP 36.4; O2SAT 100
[2023-03-17] MEDS: LEVOTHYROXINE SODIUM 112 MCG TABLET PO (06:45)
[2023-03-17] MEDS: LEVOTHYROXINE SODIUM 25 MCG TABLET PO (06:45)
[2023-03-17] MEDS: HYDROcodone/acetaminophen (*CRX) 10-325 MG TABLET 1 TAB PO ×2 (07:41→16:21)
[2023-03-17 08:00] VITALS: BP 120/46; BP 129/49; PULSE 65; PULSE 67; RESP 18; TEMP 36.7; O2SAT 100
[2023-03-17] MEDS: CHOLECALCIFEROL 1,000 UNITS TABLET 2000 UNITS PO (08:44)
[2023-03-17] MEDS: amLODIPine BESYLATE 5 MG TABLET 10 MG BY MOUTH (08:44)
[2023-03-17] MEDS: FAMOTIDINE 20 MG TABLET 40 MG PO ×2 (08:44→16:20)
[2023-03-17] MEDS: ASPIRIN 81 MG CHEWABLE TABLET PO (08:44)
[2023-03-17] MEDS: TAMSULOSIN HCL 0.4 MG CAPSULE PO (08:45)
[2023-03-17] MEDS: DICYCLOMINE HCL 10 MG CAPSULE PO ×4 (08:45→19:49)
[2023-03-17] MEDS: MICONAZOLE NITRATE 2% CREAM 30 GM TUBE 1 APPLIC TOPICAL ×2 (08:45→16:20)
[2023-03-17] MEDS: SODIUM CHLORIDE 1 GM TABLET PO ×2 (08:45→16:20)
[2023-03-17] MEDS: FERROUS SULFATE 324 MG TABLET PO ×2 (08:45→16:20)
[2023-03-17] MEDS: lisinopriL 20 MG TABLET PO ×2 (08:45→16:20)
[2023-03-17] MEDS: SIMVASTATIN 20 MG TABLET 40 MG PO (08:45)
[2023-03-17] MEDS: GABAPENTIN 300 MG CAPSULE PO ×3 (08:45→16:20)
[2023-03-17] MEDS: CLOBETASOL PROPIONATE 0.05% CREAM 15 GM 1 APPLIC TOPICAL ×2 (08:45→16:20)
--- NOTE | 2023-03-17 10:33 | PM.PNNEP ---
Progress Note: A&P Assessment and Plan (1) Hyponatremia: Code(s): E87.1 - Hypo-osmolality and hyponatremia Status: Acute Assessment and Plan: acute on chronic during hospitalization at [facility] several weeks ago, her sodium level was running ~ 126 - 130 suspect this range of sodiums is her baseline evaluation to date noted: TSH okay (on levothyroxine) cortisol a tad low -- cortrosyn stim test was negative. urine electrolytes non-prerenal SPEP/UPEP pending CXR clear CT of head noted -- Low attenuation in the prakash, which may be seen with chronic small vessel ischemic disease and/or osmotic demyelination -- however, brain MRI without evidence of ODS SSRI (zoloft) discontinued no history of cancer and her cancer screening is up-to-date. on fluid restriction and salt tablets given her chronic need for narcotics, not sure sodium will ever be normal follow trend of repeat sodium levels (2) COVID-19 virus infection: Code(s): U07.1 - COVID-19 Status: Acute Assessment and Plan: as noted on admission testing no hypoxia or respiratory symptoms on room air (3) Urinary tract infection: Code(s): N39.0 - Urinary tract infection, site not specified Status: Acute Assessment and Plan: as noted by admission UA and urine culture results complicated by urinary retention - stock catheter in place completed course of antibiotics (4) Generalized weakness: Code(s): R53.1 - Weakness Status: Acute Assessment and Plan: recent hospitalization and stay at rehab contributing factors include UTI and hyponatremia PT/OT as tolerated (5) Hypertension: Code(s): I10 - Essential (primary) hypertension Status: Chronic Assessment and Plan: reasonable control follow trend of hemodynamics Not much else to add -- will continue to follow intermittently. Subjective Date/time seen: 03/17/23 10:33 Appears to be doing reasonaby well; seen by Urology yesterday with recommendations noted; cotinues to work with therapy as tolerated; sodium remains relatively stable at this time. Exam Narrative: General: elderly WD/WN female in NAD Heart: normal S1 and S2; no rub Lungs: clear to auscultation Abdomen: soft, nontender, nondistended, positive bowel sounds Extremities: no cyanosis or clubbing; no edema Skin: warm and intact Objective Data Vital Signs Vital Signs: Vital Signs Temp Pulse Resp BP Pulse Ox O2 Del Method 03/17/23 08:00 98.1 F 67 18 120/46 L 100 03/17/23 08:00 98.1 F 65 18 129/49 L 100 03/17/23 08:00 100 Room Air 03/17/23 06:00 98.0 F 70 20 128/49 L 99 03/17/23 06:05 97.6 F 73 21 H 122/57 L 100 03/17/23 06:00 98.0 F 70 20 128/49 L 99 03/16/23 22:00 97.0 F L 65 20 106/45 L 98 03/16/23 14:07 97.6 F 71 16 102/47 L 100 03/16/23 14:06 97.6 F 71 16 102/47 L 100 03/16/23 14:06 97.6 F 71 16 106/40 L 100 Intake/Output Intake/Output: Intake & Output 03/14/23 03/15/23 03/16/23 03/17/23 23:59 23:59 23:59 23:59 Intake Total 1350 720 600 760 Output Total 1650 800 200 900 Balance -300 -80 400 -140 Meds/Results Medications: Active Medications Generic Name Dose Route Start Last Admin Trade Name Freq PRN Reason Stop Dose Admin Acetaminophen 650 mg 03/08/23 21:51 03/12/23 20:24 Acetaminophen 325 Mg Tablet PO 650 mg Q6H PRN Administration Mild Pain (1-3) or Fever Hydrocodone Bitart/Acetaminophen 1 tab 03/08/23 21:55 03/17/23 07:41 Hydrocodone/Acetaminophen (*Crx) 10-325 Mg Tablet PO 1 tab TID PRN Administration Pain (Scale Score 4-6) Amlodipine Besylate 10 mg 03/09/23 09:00 03/17/23 08:44 Amlodipine Besylate 5 Mg Tablet BY MOUTH 10 mg DAILY ANNY Administration Aspirin 81 mg 03/09/23 09:00 03/17/23 08:44 Aspirin 81 Mg Chewable Tablet PO 81 mg DAILY ANNY Admini
--- NOTE | 2023-03-17 10:33 | P.PNNP_ITS ---
Progress Note: A&P Assessment and Plan (1) Hyponatremia: Code(s): E87.1 - Hypo-osmolality and hyponatremia Status: Acute Assessment and Plan: * acute on chronic * during hospitalization at [facility] several weeks ago, her sodium level was running ~ 126 - 130 * suspect this range of sodiums is her baseline * evaluation to date noted: * TSH okay (on levothyroxine) * cortisol a tad low -- cortrosyn stim test was negative. * urine electrolytes non-prerenal * SPEP/UPEP pending * CXR clear * CT of head noted -- Low attenuation in the prakash, which may be seen with chronic small vessel ischemic disease and/or osmotic demyelination -- however, brain MRI without evidence of ODS * SSRI (zoloft) discontinued * no history of cancer and her cancer screening is up-to-date. * on fluid restriction and salt tablets * given her chronic need for narcotics, not sure sodium will ever be normal * follow trend of repeat sodium levels (2) COVID-19 virus infection: Code(s): U07.1 - COVID-19 Status: Acute Assessment and Plan: * as noted on admission testing * no hypoxia or respiratory symptoms * on room air (3) Urinary tract infection: Code(s): N39.0 - Urinary tract infection, site not specified Status: Acute Assessment and Plan: * as noted by admission UA and urine culture results * complicated by urinary retention - stock catheter in place * completed course of antibiotics (4) Generalized weakness: Code(s): R53.1 - Weakness Status: Acute Assessment and Plan: * recent hospitalization and stay at rehab * contributing factors include UTI and hyponatremia * PT/OT as tolerated (5) Hypertension: Code(s): I10 - Essential (primary) hypertension Status: Chronic Assessment and Plan: * reasonable control * follow trend of hemodynamics Not much else to add -- will continue to follow intermittently. Subjective Date/time seen: 03/17/23 10:33 Appears to be doing reasonaby well; seen by Urology yesterday with recommendations noted; cotinues to work with therapy as tolerated; sodium remains relatively stable at this time. Exam Narrative: General: elderly WD/WN female in NAD Heart: normal S1 and S2; no rub Lungs: clear to auscultation Abdomen: soft, nontender, nondistended, positive bowel sounds Extremities: no cyanosis or clubbing; no edema Skin: warm and intact Objective Data Vital Signs Vital Signs: Vital Signs Temp Pulse Resp BP Pulse Ox O2 Del Method 03/17/23 08:00 98.1 F 67 18 120/46 L 100 03/17/23 08:00 98.1 F 65 18 129/49 L 100 03/17/23 08:00 100 Room Air 03/17/23 06:00 98.0 F 70 20 128/49 L 99 03/17/23 06:05 97.6 F 73 21 H 122/57 L 100 03/17/23 06:00 98.0 F 70 20 128/49 L 99 03/16/23 22:00 97.0 F L 65 20 106/45 L 98 03/16/23 14:07 97.6 F 71 16 102/47 L 100 03/16/23 14:06 97.6 F 71 16 102/47 L 100 03/16/23 14:06 97.6 F 71 16 106/40 L 100 Intake/Output Intake/Output: Intake & Output 03/14/23 03/15/23 03/16/23 03/17/23 23:59 23:59 23:59 23:59 Intake Total 1350 720 600 760 Output Total 1650 800 200 900 Balance -300 -80 400 -140
--- NOTE | 2023-03-17 13:29 | P.PNIM_ITS ---
Progress Note: A&P Assessment and Plan (1) Hyponatremia: Code(s): E87.1 - Hypo-osmolality and hyponatremia Status: Acute Assessment and Plan: Acute versus acute on chronic hyponatremia. She reportedly had problems with hyponatremia when hospitalized at [facility] last month and was started on sodium tablets. She looks dry on exam and will be cautiously hydrated with close monitoring of volume status and electrolytes. * TSH 3.1, urine sodium 108 and serum osmolality pending * IV fluids discontinued on 03/12/2023 * Trend sodium * Random cortisol within normal limits * ACTH 11 * Patient does take chronic opioid medications. * 03/12 Sodium dropped from 129 to 125. Increased NaCl to 1g bid. Discontinue Zoloft. Recheck urine Na and Cr. * 03/13 Sodium is still low at 125. Will consult nephrology regarding hyponatremi a. * 03/14 Sodium 127. Nephrology following. Fluid restricted to 1500 mL. * 03/15 discussed with nephrology today and they have okayed patient for discharge. Patient's sodium 128. advised follow-up with Nephrology as an outpatient. Will repeat labs in 2-3 days. * 03/16 Sodium 130. * 03/17 stable (2) COVID: Code(s): U07.1 - COVID-19 Status: Acute Assessment and Plan: Supportive care. She has no oxygen requirement thus no indication for dexametha sone or remdesivir. * She reports possible exposure in the last week, but is vague in her answers regarding this. * She endorses prior COVID19 vaccination, but is unsure of her booster status. 03/17 Patient no longer on COVID precautions (3) Generalized weakness: Code(s): R53.1 - Weakness Status: Acute Assessment and Plan: patient continues work with PT and OT. (4) Hypertension: Code(s): I10 - Essential (primary) hypertension Status: Chronic Assessment and Plan: Blood pressures stable Continue amlodipine, hydralazine, and lisinopril as BP tolerates. (5) Acute cystitis without hematuria: Code(s): N30.00 - Acute cystitis without hematuria Status: Acute Assessment and Plan: UA shows trace leukocyte esterase and 4+ bacteria, 0-5 white blood cells were noted on microscopy. * Patient with acute urinary retention and suprapubic pain on exam. * Urine culture with pseudomonas aeruginosa growth >100,000 CFU * Cipro allergy noted and family reports reaction is diarrhea only. No hives, pruritus, or anaphylaxis with prior use. * Start Levaquin 750 mg PO daily x 5 days for acute cystitis. 1st dose 03/11/2023. * 03/15 Levaquin antibiotic course completed (6) Acute urinary retention: Code(s): R33.8 - Other retention of urine Status: Acute Assessment and Plan: bladder scan >1300 mL on admission with patient c/o pain and tenderness on exam. Denies prior history of urinary retention. * Most likely associated with acute UTI. * Patient failed voiding trial and Jauregui catheter reinserted on 03/12/2023. * Advised follow-up with Urology in 10 days for catheter removal. Start tamsulosin 0.4 mg daily. * Discussed case with Urology and they have agreed with plan of action. Subjective Date/time seen: 03/17/23 13:29 Interval history: Patient's discharge has been appealed by her family and we are waiting answers on the appeal. No new complaints at this time. patient has no new complaints at this time Exam Narrative: GENERAL: Comfortable, no acute distress
--- NOTE | 2023-03-17 13:29 | PM.IMPN ---
Progress Note: A&P Assessment and Plan (1) Hyponatremia: Code(s): E87.1 - Hypo-osmolality and hyponatremia Status: Acute Assessment and Plan: Acute versus acute on chronic hyponatremia. She reportedly had problems with hyponatremia when hospitalized at [facility] last month and was started on sodium tablets. She looks dry on exam and will be cautiously hydrated with close monitoring of volume status and electrolytes. TSH 3.1, urine sodium 108 and serum osmolality pending IV fluids discontinued on 03/12/2023 Trend sodium Random cortisol within normal limits ACTH 11 Patient does take chronic opioid medications. 03/12 Sodium dropped from 129 to 125. Increased NaCl to 1g bid. Discontinue Zoloft. Recheck urine Na and Cr. 03/13 Sodium is still low at 125. Will consult nephrology regarding hyponatremia. 03/14 Sodium 127. Nephrology following. Fluid restricted to 1500 mL. 03/15 discussed with nephrology today and they have okayed patient for discharge. Patient's sodium 128. advised follow-up with Nephrology as an outpatient. Will repeat labs in 2-3 days. 03/16 Sodium 130. 03/17 stable (2) COVID: Code(s): U07.1 - COVID-19 Status: Acute Assessment and Plan: Supportive care. She has no oxygen requirement thus no indication for dexamethasone or remdesivir. She reports possible exposure in the last week, but is vague in her answers regarding this. She endorses prior COVID19 vaccination, but is unsure of her booster status. 03/17 Patient no longer on COVID precautions (3) Generalized weakness: Code(s): R53.1 - Weakness Status: Acute Assessment and Plan: patient continues work with PT and OT. (4) Hypertension: Code(s): I10 - Essential (primary) hypertension Status: Chronic Assessment and Plan: Blood pressures stable Continue amlodipine, hydralazine, and lisinopril as BP tolerates. (5) Acute cystitis without hematuria: Code(s): N30.00 - Acute cystitis without hematuria Status: Acute Assessment and Plan: UA shows trace leukocyte esterase and 4+ bacteria, 0-5 white blood cells were noted on microscopy. Patient with acute urinary retention and suprapubic pain on exam. Urine culture with pseudomonas aeruginosa growth >100,000 CFU Cipro allergy noted and family reports reaction is diarrhea only. No hives, pruritus, or anaphylaxis with prior use. Start Levaquin 750 mg PO daily x 5 days for acute cystitis. 1st dose 03/11/2023. 03/15 Levaquin antibiotic course completed (6) Acute urinary retention: Code(s): R33.8 - Other retention of urine Status: Acute Assessment and Plan: bladder scan >1300 mL on admission with patient c/o pain and tenderness on exam. Denies prior history of urinary retention. Most likely associated with acute UTI. Patient failed voiding trial and Jauregui catheter reinserted on 03/12/2023. Advised follow-up with Urology in 10 days for catheter removal. Start tamsulosin 0.4 mg daily. Discussed case with Urology and they have agreed with plan of action. Subjective Date/time seen: 03/17/23 13:29 Interval history: Patient's discharge has been appealed by her family and we are waiting answers on the appeal. No new complaints at this time. patient has no new complaints at this time Exam Narrative: GENERAL: Comfortable, no acute distress HENMT: moist mucous membranes EYES: EOM intact b/l NECK: no lymphadenopathy RESPIRATORY: clear to auscultation CARDIO: RRR GI: soft, nontender, bowel sounds present SKIN: no rashes EXTREMITIES: no edema, redness or tenderness Objective Data Vital Signs Vital Signs: Vital Signs - 24 hr 03/16/23 14:06 03/16/23 14:06 03/16/23 14:07 Temperature 97.6 F 97.6 F 97.6 F Pulse Rate 71 71 71 Respiratory Rate 16 16 16 Blood Pressure 106/40 L 102/47 L 102/47 L Pulse Oximetry 100 100 100 Oxygen
[2023-03-17 14:00] VITALS: BP 108/45; PULSE 60; RESP 18; TEMP 36.5; O2SAT 99
[2023-03-17] MEDS: ACETAMINOPHEN 325 MG TABLET 650 MG PO (19:51)
[2023-03-17 20:15] LABS: Kappa\\Lambda Light Chains 1.49 (0.26-1.65); Lambda Light Chain 16.4 mg/L (5.7-26.3)
[2023-03-17 22:00] VITALS: BP 106/40; PULSE 62; RESP 20; TEMP 36.5; O2SAT 99
[2023-03-18] VITALS (10 sets, daily range): BP systolic 98–137; BP diastolic 32–55; PULSE 62–75; RESP 16–20; TEMP 36.3–36.7; O2SAT 96–99
[2023-03-18 05:42] LABS: Anion Gap 3 mmol/L (8-16); Blood Urea Nitrogen 11 mg/dL (7-17); Calcium 8.6 mg/dL (8.4-10.2); Carbon Dioxide 28 mmol/L (22-30); Chloride 97 mmol/L (98-107); Estimated CRCL calculation 56 ml/min; Estimated Glomerular Filt Rate > 60; Glucose 78 mg/dL (65-110); Hematocrit 33.5 % (37.0-47.0); Hemoglobin 10.9 g/dL (12.0-15.0); Mean Corpuscular HGB Conc 32.5 g/dl (32-36); Mean Corpuscular Hemoglobin 28.5 pg (26-34); Mean Corpuscular Volume 87.7 fl (80-100); Mean Platelet Volume 8.9 fl (7.4-10.4); Platelet Count Result 372 k/mm3 (150-375); Potassium 3.9 mmol/L (3.4-5.0); Red Blood Count 3.82 M/mm3 (4.2-5.4); Red Cell Distribution Width 15.2 % (11.5-14.5); Sodium 128 mmol/L (137-145); White Blood Count 6.1 K/mm3 (4.5-10.0)
[2023-03-18] MEDS: LEVOTHYROXINE SODIUM 25 MCG TABLET PO (06:19)
[2023-03-18] MEDS: LEVOTHYROXINE SODIUM 112 MCG TABLET PO (06:20)
[2023-03-18] MEDS: HYDROcodone/acetaminophen (*CRX) 10-325 MG TABLET 1 TAB PO ×3 (06:23→17:31)
[2023-03-18] MEDS: FAMOTIDINE 20 MG TABLET 40 MG PO ×2 (08:41→17:29)
[2023-03-18] MEDS: amLODIPine BESYLATE 5 MG TABLET 10 MG BY MOUTH (08:41)
[2023-03-18] MEDS: ASPIRIN 81 MG CHEWABLE TABLET PO (08:41)
[2023-03-18] MEDS: MICONAZOLE NITRATE 2% CREAM 30 GM TUBE 1 APPLIC TOPICAL ×2 (08:42→17:29)
[2023-03-18] MEDS: FERROUS SULFATE 324 MG TABLET PO ×2 (08:42→17:29)
[2023-03-18] MEDS: lisinopriL 20 MG TABLET PO ×2 (08:42→17:29)
[2023-03-18] MEDS: GABAPENTIN 300 MG CAPSULE PO ×3 (08:42→17:29)
[2023-03-18] MEDS: CHOLECALCIFEROL 1,000 UNITS TABLET 2000 UNITS PO (08:42)
[2023-03-18] MEDS: CLOBETASOL PROPIONATE 0.05% CREAM 15 GM 1 APPLIC TOPICAL ×2 (08:42→17:29)
[2023-03-18] MEDS: DICYCLOMINE HCL 10 MG CAPSULE PO ×4 (08:42→20:44)
[2023-03-18] MEDS: SODIUM CHLORIDE 1 GM TABLET PO ×2 (08:43→17:29)
[2023-03-18] MEDS: TAMSULOSIN HCL 0.4 MG CAPSULE PO (08:43)
[2023-03-18] MEDS: SIMVASTATIN 20 MG TABLET 40 MG PO (08:43)
--- NOTE | 2023-03-18 08:57 | PCNWS ---
Weekly nutritional screen. Patient is tolerating current diet with adequate intake. No weight loss reported. No nutritional needs at this time.
--- NOTE | 2023-03-18 09:03 | PCPTNOTE ---
Patient refused treatment this session. Patient reported she wanted to drink her coffee.
--- NOTE | 2023-03-18 16:49 | P.PNIM_ITS ---
Progress Note: A&P Assessment and Plan (1) Hyponatremia: Code(s): E87.1 - Hypo-osmolality and hyponatremia Status: Acute Assessment and Plan: Acute versus acute on chronic hyponatremia. She reportedly had problems with hyponatremia when hospitalized at [facility] last month and was started on sodium tablets. On admission, she looked dry on exam. * Treated with IV hydration initially. IV fluids discontinued on 03/12/2023 * TSH 3.1 within normal limits. * urine sodium 108 and serum osmolality 320 * Trended sodium * Random cortisol within normal limits * ACTH 11 * Patient does take chronic opioid medications that can be contributing. * 03/12 Sodium dropped from 129 to 125. Increased NaCl to 1g bid. Discontinue Zoloft. Recheck urine Na 147 and Cr 34.7 * 03/13 Sodium is still low at 125. nephrology Consulted and appreciate recommendations. * UPEP & SPEP pending. * 03/14 Sodium 127. Nephrology following. Fluid restricted to 1500 mL. * 03/15 discussed with nephrology today and they have okayed patient for discharge.? Patient's sodium 128. advised follow-up with Nephrology as an outpatient. Will repeat labs in 2 days after discharge. * 03/16 Sodium 130. * 03/18 sodium 128. Suspect baseline 126-130 * On 1500 mL fluid restriction (2) COVID: Code(s): U07.1 - COVID-19 Status: Acute Assessment and Plan: Supportive care.? She has no oxygen requirement thus no indication for dexamethasone or remdesivir. * She reports possible exposure in the last week piror to admission, but is vague in her answers regarding this. * She endorses prior COVID19 vaccination, but is unsure of her booster status. * COVID19 isolation discontinued 03/18. * No supplemental O2 requirements * recommend infection prevention precautions and obtaining COVID19 booster if not had in the past 6 months. (3) Generalized weakness: Code(s): R53.1 - Weakness Status: Acute Assessment and Plan: ?Secondary to UTI, COVID19 and deconditioning. * Continue PT and OT. * Plan to discharge home with home health (4) Hypertension: Code(s): I10 - Essential (primary) hypertension Status: Chronic Assessment and Plan: Chronic, Blood pressures soft SBP 90-110/40-50s * Continue amlodipine and lisinopril as BP tolerates. * Hydralazine discontinued 03/15 (5) Acute cystitis without hematuria: Code(s): N30.00 - Acute cystitis without hematuria Status: Resolved Assessment and Plan: UA shows trace leukocyte esterase and 4+ bacteria, 0-5 white blood cells were noted on microscopy. * Patient with acute urinary retention and suprapubic pain on exam. * Urine culture with pseudomonas aeruginosa growth >100,000 CFU * Cipro allergy noted and family reports reaction is diarrhea only. No hives, pruritus, or anaphylaxis with prior use. * Started Levaquin 750 mg PO daily x 5 days for acute cystitis.? 1st dose 03/11/2023. * 03/15 Levaquin antibiotic course completed (6) Acute urinary retention: Code(s): R33.8 - Other retention of urine Status: Acute Assessment and Plan: bladder scan >1300 mL on admission with patient c/o pain and tenderness on exam. Denies prior history of urinary retention. * May be associated with neurogenic bladder. * Patient failed voiding trial and Stock catheter reinserted on 03/12/2023.? * Advised follow-up with Urology in 10 days for catheter removal. Started tamsulosin 0.4 mg daily. * Discussed case with Urology and they have agreed with plan of action. * Family stock care teaching by nursing
--- NOTE | 2023-03-18 16:49 | PM.IMPN ---
Progress Note: A&P Assessment and Plan (1) Hyponatremia: Code(s): E87.1 - Hypo-osmolality and hyponatremia Status: Acute Assessment and Plan: Acute versus acute on chronic hyponatremia. She reportedly had problems with hyponatremia when hospitalized at [facility] last month and was started on sodium tablets. On admission, she looked dry on exam. Treated with IV hydration initially. IV fluids discontinued on 03/12/2023 TSH 3.1 within normal limits. urine sodium 108 and serum osmolality 320 Trended sodium Random cortisol within normal limits ACTH 11 Patient does take chronic opioid medications that can be contributing. 03/12 Sodium dropped from 129 to 125. Increased NaCl to 1g bid. Discontinue Zoloft. Recheck urine Na 147 and Cr 34.7 03/13 Sodium is still low at 125. nephrology Consulted and appreciate recommendations. UPEP & SPEP pending. 03/14 Sodium 127. Nephrology following. Fluid restricted to 1500 mL. 03/15 discussed with nephrology today and they have okayed patient for discharge.? Patient's sodium 128. advised follow-up with Nephrology as an outpatient. Will repeat labs in 2 days after discharge. 03/16 Sodium 130. 03/18 sodium 128. Suspect baseline 126-130 On 1500 mL fluid restriction (2) COVID: Code(s): U07.1 - COVID-19 Status: Acute Assessment and Plan: Supportive care.? She has no oxygen requirement thus no indication for dexamethasone or remdesivir. She reports possible exposure in the last week piror to admission, but is vague in her answers regarding this. She endorses prior COVID19 vaccination, but is unsure of her booster status. COVID19 isolation discontinued 03/18. No supplemental O2 requirements recommend infection prevention precautions and obtaining COVID19 booster if not had in the past 6 months. (3) Generalized weakness: Code(s): R53.1 - Weakness Status: Acute Assessment and Plan: ?Secondary to UTI, COVID19 and deconditioning. Continue PT and OT. Plan to discharge home with home health (4) Hypertension: Code(s): I10 - Essential (primary) hypertension Status: Chronic Assessment and Plan: Chronic, Blood pressures soft SBP 90-110/40-50s Continue amlodipine and lisinopril as BP tolerates. Hydralazine discontinued 03/15 (5) Acute cystitis without hematuria: Code(s): N30.00 - Acute cystitis without hematuria Status: Resolved Assessment and Plan: UA shows trace leukocyte esterase and 4+ bacteria, 0-5 white blood cells were noted on microscopy. Patient with acute urinary retention and suprapubic pain on exam. Urine culture with pseudomonas aeruginosa growth >100,000 CFU Cipro allergy noted and family reports reaction is diarrhea only. No hives, pruritus, or anaphylaxis with prior use. Started Levaquin 750 mg PO daily x 5 days for acute cystitis.? 1st dose 03/11/2023. 03/15 Levaquin antibiotic course completed (6) Acute urinary retention: Code(s): R33.8 - Other retention of urine Status: Acute Assessment and Plan: bladder scan >1300 mL on admission with patient c/o pain and tenderness on exam. Denies prior history of urinary retention. May be associated with neurogenic bladder. Patient failed voiding trial and Stock catheter reinserted on 03/12/2023.? Advised follow-up with Urology in 10 days for catheter removal. Started tamsulosin 0.4 mg daily. Discussed case with Urology and they have agreed with plan of action. Family stock care teaching by nursing Plan CODE STATUS: FULL CODE Discharge disposition: SNF auth denied. DC home with daughter and home health tomorrow morning Time Spent With Patient Time: 35 min Subjective Date/time seen: 03/18/23 16:49 She reports no new complaints or overnight events. No chest pain, SOB, palpitations, abd pain, N/V/D, flank pain, or constipation. Nursing reports no concerns or overnight events. Review of Sys
[2023-03-18] MEDS: ACETAMINOPHEN 325 MG TABLET 650 MG PO (20:44)
[2023-03-18] MEDS: SENNA/DOCUSATE SODIUM TABLET 2 TAB PO (20:44)
[2023-03-19 05:10] LABS: Creatinine, Random Urine 47 mg/dL (20-275); Total Protein/Creatinine Ratio 191 mg/g creat (24-184)
[2023-03-19] MEDS: LEVOTHYROXINE SODIUM 112 MCG TABLET PO (05:39)
[2023-03-19] MEDS: HYDROcodone/acetaminophen (*CRX) 10-325 MG TABLET 1 TAB PO (05:39)
[2023-03-19] MEDS: LEVOTHYROXINE SODIUM 25 MCG TABLET PO (05:39)
[2023-03-19 06:00] VITALS: BP 126/42; PULSE 66; RESP 21; TEMP 36.4; O2SAT 100
--- NOTE | 2023-03-19 08:02 | P.DS_ITS ---
DS: Admitting Diagnosis Discharge Date 03/19/2023 Admitting Diagnosis Hypo-osmolality and hyponatremia COVID-19 Generalized weakness Hypothyroidism, unspecified Essential (primary) hypertension Abnormal urinalysis DS: Discharge Diagnosis Discharge Diagnosis (1) Hyponatremia: Code(s): E87.1 - Hypo-osmolality and hyponatremia Status: Acute Assessment and Plan: Acute versus acute on chronic hyponatremia. She reportedly had problems with hyponatremia when hospitalized at [facility] last month and was started on sodium tablets. On admission, she looked dry on exam. * Treated with IV hydration initially. IV fluids discontinued on 03/12/2023 * TSH 3.1 within normal limits. * urine sodium 108 and serum osmolality 320 * Random cortisol within normal limits * ACTH 11 * Patient does take chronic opioid medications that can be contributing. * 03/12 Sodium dropped from 129 to 125. Increased NaCl to 1g bid. Discontinue Zoloft. Recheck urine Na 147 and Cr 34.7 * 03/13 Sodium is still low at 125. nephrology Consulted and appreciate recommendations. * UPEP & SPEP drawn and pending. * 03/14 Sodium 127. Nephrology following. Fluid restricted to 1500 mL. * 03/15 nephrology okay with discharge.? Patient's sodium 128. advised follow-up with Nephrology as an outpatient with repeat labs in 2 days after discharge. * 03/16 Sodium 130. * 03/18 sodium 128. Suspect baseline 126-130 (2) COVID: Code(s): U07.1 - COVID-19 Status: Acute Assessment and Plan: Supportive care.? She has no oxygen requirement thus no indication for dexamethasone or remdesivir. * She reports possible exposure in the last week piror to admission, but is vague in her answers regarding this. * She endorses prior COVID19 vaccination, but is unsure of her booster status. * COVID19 isolation discontinued 03/18. * No supplemental O2 requirements * recommend infection prevention precautions and obtaining COVID19 booster if not had in the past 6 months. (3) Generalized weakness: Code(s): R53.1 - Weakness Status: Acute Assessment and Plan: ?Secondary to UTI, COVID19 and deconditioning. * Continue PT and OT. * discharge home with home health (4) Hypertension: Code(s): I10 - Essential (primary) hypertension Status: Chronic Assessment and Plan: Chronic, Blood pressures soft SBP 90-110/40-50s * Continue amlodipine and lisinopril as BP tolerates. * Hydralazine discontinued 03/15 for soft blood pressures. (5) Acute cystitis without hematuria: Code(s): N30.00 - Acute cystitis without hematuria Status: Resolved Assessment and Plan: UA shows trace leukocyte esterase and 4+ bacteria, 0-5 white blood cells were noted on microscopy. * Patient with acute urinary retention and suprapubic pain on exam. * Urine culture with pseudomonas aeruginosa growth >100,000 CFU * Cipro allergy noted and family reported reaction is diarrhea only. No hives, pruritus, or anaphylaxis with prior use. * Started Levaquin 750 mg PO daily x 5 days for acute cystitis, 1st dose 03/11/2023. * 03/15 Levaquin antibiotic course completed (6) Acute urinary retention: Code(s): R33.8 - Other retention of urine Status: Acute Assessment and Plan: bladder scan >1300 mL on admission with patient c/o pain and tenderness on exam. Denies prior history of urinary retention. * May be associated with neurogenic bladder. * Patient failed voiding trial and Jauregui catheter reinserted on 03/12/2023.? * Advised thuy
--- NOTE | 2023-03-19 08:02 | PM.DS ---
DS: Admitting Diagnosis Discharge Date 03/19/2023 Admitting Diagnosis Hypo-osmolality and hyponatremia COVID-19 Generalized weakness Hypothyroidism, unspecified Essential (primary) hypertension Abnormal urinalysis DS: Discharge Diagnosis Discharge Diagnosis (1) Hyponatremia: Code(s): E87.1 - Hypo-osmolality and hyponatremia Status: Acute Assessment and Plan: Acute versus acute on chronic hyponatremia. She reportedly had problems with hyponatremia when hospitalized at [facility] last month and was started on sodium tablets. On admission, she looked dry on exam. Treated with IV hydration initially. IV fluids discontinued on 03/12/2023 TSH 3.1 within normal limits. urine sodium 108 and serum osmolality 320 Random cortisol within normal limits ACTH 11 Patient does take chronic opioid medications that can be contributing. 03/12 Sodium dropped from 129 to 125. Increased NaCl to 1g bid. Discontinue Zoloft. Recheck urine Na 147 and Cr 34.7 03/13 Sodium is still low at 125. nephrology Consulted and appreciate recommendations. UPEP & SPEP drawn and pending. 03/14 Sodium 127. Nephrology following. Fluid restricted to 1500 mL. 03/15 nephrology okay with discharge.? Patient's sodium 128. advised follow-up with Nephrology as an outpatient with repeat labs in 2 days after discharge. 03/16 Sodium 130. 03/18 sodium 128. Suspect baseline 126-130 (2) COVID: Code(s): U07.1 - COVID-19 Status: Acute Assessment and Plan: Supportive care.? She has no oxygen requirement thus no indication for dexamethasone or remdesivir. She reports possible exposure in the last week piror to admission, but is vague in her answers regarding this. She endorses prior COVID19 vaccination, but is unsure of her booster status. COVID19 isolation discontinued 03/18. No supplemental O2 requirements recommend infection prevention precautions and obtaining COVID19 booster if not had in the past 6 months. (3) Generalized weakness: Code(s): R53.1 - Weakness Status: Acute Assessment and Plan: ?Secondary to UTI, COVID19 and deconditioning. Continue PT and OT. discharge home with home health (4) Hypertension: Code(s): I10 - Essential (primary) hypertension Status: Chronic Assessment and Plan: Chronic, Blood pressures soft SBP 90-110/40-50s Continue amlodipine and lisinopril as BP tolerates. Hydralazine discontinued 03/15 for soft blood pressures. (5) Acute cystitis without hematuria: Code(s): N30.00 - Acute cystitis without hematuria Status: Resolved Assessment and Plan: UA shows trace leukocyte esterase and 4+ bacteria, 0-5 white blood cells were noted on microscopy. Patient with acute urinary retention and suprapubic pain on exam. Urine culture with pseudomonas aeruginosa growth >100,000 CFU Cipro allergy noted and family reported reaction is diarrhea only. No hives, pruritus, or anaphylaxis with prior use. Started Levaquin 750 mg PO daily x 5 days for acute cystitis, 1st dose 03/11/2023. 03/15 Levaquin antibiotic course completed (6) Acute urinary retention: Code(s): R33.8 - Other retention of urine Status: Acute Assessment and Plan: bladder scan >1300 mL on admission with patient c/o pain and tenderness on exam. Denies prior history of urinary retention. May be associated with neurogenic bladder. Patient failed voiding trial and Stock catheter reinserted on 03/12/2023.? Advised follow-up with Urology in 10 days for catheter removal. Started tamsulosin 0.4 mg daily. Discussed case with Urology and they have agreed with plan of action. Family stock care teaching by nursing DS: Summary Hospital Course Reason for hospitalization: Weakness Hospital Course: Patient is an 82-year-old female with hypertension, hyperlipidemia, hypothyroidism, anemia, and GERD who presented to the emergency department from home for ev
[2023-03-19 08:06] VITALS: BP 138/45; PULSE 66
[2023-03-19] MEDS: FAMOTIDINE 20 MG TABLET 40 MG PO (08:08)
[2023-03-19] MEDS: ASPIRIN 81 MG CHEWABLE TABLET PO (08:09)
[2023-03-19] MEDS: amLODIPine BESYLATE 5 MG TABLET 10 MG BY MOUTH (08:09)
[2023-03-19] MEDS: FERROUS SULFATE 324 MG TABLET PO (08:09)
[2023-03-19] MEDS: DICYCLOMINE HCL 10 MG CAPSULE PO (08:10)
[2023-03-19] MEDS: TAMSULOSIN HCL 0.4 MG CAPSULE PO (08:10)
[2023-03-19] MEDS: SODIUM CHLORIDE 1 GM TABLET PO (08:10)
[2023-03-19] MEDS: lisinopriL 20 MG TABLET PO (08:10)
[2023-03-19] MEDS: SIMVASTATIN 20 MG TABLET 40 MG PO (08:11)
[2023-03-19] MEDS: CHOLECALCIFEROL 1,000 UNITS TABLET 2000 UNITS PO (08:11)
[2023-03-19] MEDS: GABAPENTIN 300 MG CAPSULE PO (08:12)
[2023-03-19] MEDS: ACETAMINOPHEN 325 MG TABLET 650 MG PO (08:15)
--- NOTE | 2023-03-19 09:37 | PC.NURSE ---
On 03/19/23, the student, Kandace Bobo RN, provided care and completed [facility] documentation on this patient. I have reviewed the student's documentation and agree with the findings.
== END 2023-03-19 09:00 | disposition home health service (06) | DRG 640 ==
LOC: ANHED 16:31 → ANH2MED 19:12
PROVIDERS: Emergency Medicine; Internal Medicine Critical Care Medicine; Internal Medicine Nephrology; Physician Assistant; Admitting Provider Family Medicine; Emergency Provider Emergency Medicine; Visit Provider Nurse Practitioner Family
DX: E87.1 Hypo-osmolality and hyponatremia (principal); U07.1 COVID-19; N30.00 Acute cystitis without hematuria; I10 Essential (primary) hypertension; R33.8 Other retention of urine; E03.9 Hypothyroidism, unspecified; B96.5 Pseudomonas (aeruginosa) (mallei) (pseudomallei) as the cause of diseases classified elsewhere; Z88.2 Allergy status to sulfonamides
CPT/HCPCS: 36415; 70450; 70553; 71045; 80048; 80053; 81001; 82024; 82533; 82570; 83735; 83883; 83930; 83935; 84145; 84156; 84166; 84295; 84300; 84443; 84540; 85025; 85027; 86140; 87077; 87086; 87088; 87186; 87637; 93005; 93306; 96360; 96361; 97110; 97116; 97161; 97165; 97530; 97535; 99285; A9270; A9577; G0378; J0834; J7030

== ENCOUNTER 2023-05-23 11:07 | Outpatient (CLI) | payer MEDICARE, SELFPAY ==
[2023-05-23 14:22] LABS: Albumin Level 4.3 g/dL (3.5-5.1); Anion Gap 4 mmol/L (8-16); Blood Urea Nitrogen 8 mg/dL (7-17); Calcium 8.7 mg/dL (8.4-10.2); Carbon Dioxide 33 mmol/L (22-30); Chloride 91 mmol/L (98-107); Estimated Glomerular Filt Rate > 60; Glucose 116 mg/dL (65-110); Phosphorus 3.3 mg/dL (2.5-4.5); Potassium 3.2 mmol/L (3.4-5.0); Sodium 128 mmol/L (137-145)
== END 2023-05-23 11:08 | disposition home or self-care (01) ==
LOC: ANHLAB 11:09
PROVIDERS: Visit Provider Internal Medicine Nephrology
DX: E87.1 Hypo-osmolality and hyponatremia (principal)
CPT/HCPCS: 36415; 80069

== ENCOUNTER 2023-07-04 12:43 | Outpatient (CLI) | payer MEDICARE, SELFPAY ==
[2023-07-04 13:16] LABS: Albumin Level 4.1 g/dL (3.5-5.1); Anion Gap 7 mmol/L (8-16); Blood Urea Nitrogen 8 mg/dL (7-17); Calcium 8.9 mg/dL (8.4-10.2); Carbon Dioxide 29 mmol/L (22-30); Chloride 89 mmol/L (98-107); Estimated Glomerular Filt Rate > 60; Glucose 111 mg/dL (65-110); Phosphorus 3.5 mg/dL (2.5-4.5); Potassium 3.6 mmol/L (3.4-5.0); Sodium 125 mmol/L (137-145)
== END 2023-07-04 12:44 | disposition home or self-care (01) ==
PROVIDERS: Visit Provider Internal Medicine Nephrology
DX: E87.1 Hypo-osmolality and hyponatremia (principal)
CPT/HCPCS: 36415; 80069

== ENCOUNTER 2023-07-24 01:28 | Day surgery (SDC) | payer MEDICARE, SELFPAY ==
[2023-07-14 10:55] VITALS: BMI 26.3
--- NOTE | 2023-07-14 11:06 | PC.NURSE ---
Report to the Outpatient Waiting Room, entrance under the green pavilion located off [facility], at time ___0900____ on date __07/24/23 . Planned Procedure Time: ___1100 . Time changes happen often and if your time is changed the preop area will call you the afternoon before. - You and your visitor will be asked to self-screen and do not enter if you have any COVID symptoms. - A mask is optional within the hospital at this time. Patients may have clear liquids (water, carbonated beverages, clear teas, apple juice) until 3 hours prior to surgery (0800 AM ) with a maximum of 20 ounces. - No food from midnight until time of surgery - Infants may have breast milk until 4 hours before surgery, infant formula 6 hours prior to surgery. - Children will be allowed to drink immediately following surgery. If applicable, please bring a bottle or sippy cup to assist with drinking. Juice, water, soda, and popsicles are readily available. For infants on formula, please bring formula the day of surgery. Pacifiers are allowed. Take the following medications with a SIP of water the morning of surgery: _AMLODIPINE, HYDRALAZINE, LEVOTHYROXINE, & PAIN MED IF NEEDED__ DO NOT STOP ANY OF YOUR OTHER PRESCRIPTION MEDICATIONS PRIOR TO SURGERY ?EXCEPT THE FOLLOWING Medications to discontinue per physician Date to take last dose Please no make-up, nail slovenian, hairspray, perfume, deodorant, or body powder the day of surgery. No jewelry (including any body piercings) or valuables the day of surgery, leave them at home. Please take a shower or bath the night before, or the morning of, surgery with an antibacterial soap. Wear comfortable, loose fitting clothing. Children are encouraged to wear pajamas. - Jewelry must be removed prior to entering the operating room. Rings and piercings that are not removed may be cut off. - The hospital will not accept responsibility for valuables. - Please leave all valuables, including medications, at home the day of surgery. If you are going home after surgery, a licensed meals on wheels driver must drive you home. - NO public transportation without another adult if you receive anesthesia. - We recommend that an adult stay with you for 24 hours following discharge. - We also recommend that you do not drive, make important decision, drink alcoholic beverages, or take any drugs that were not prescribed by your health care provider for at least 24 hours after your discharge time. For Pediatric surgeries, we recommend two adults accompany the child home. Follow any additional instructions given to you from your surgeon. If you or anyone in your household have experienced Covid symptoms in the past week, please notify your surgeon or the nurse liaison at the phone number below for possible testing. Telephone instructions given to _PT'S DAUGHTER__and asked if any additional questions and then verbalized understanding. Patient advised to call surgeon office or pre surgery nurse liaison [phone] if any additional questions.
--- NOTE | 2023-07-19 20:49 | PM.IMHP ---
H&P: HPI History of Present Illness Date/Time: 07/19/23 20:49 Chief Complaint: Urinary retention Narrative: this is a patient with urinary retention due to atonic bladder. Review of Systems Review of Systems: All systems reviewed & are unremarkable except as noted in HPI and below PMFSH Past Medical History Medical History Dyslipidemia Gastroesophageal reflux disease Hypertension Hypothyroidism Surgical History Surgical History History of appendectomy History of cholecystectomy History of hysterectomy Family History Family History Other Hypertension Social History Social History Social History: Surrogate medical decision maker: Nohemy Carbajal, daughter. Code status: Full code. Smoking status: Former smoker Second hand tobacco smoke exposure: No Additional smoking assessment comments: DAUGHTER UNKNOWN TO DAUGHTER - STATES NO SMOKING IN PAST 40 YRS Alcohol intake: never Substance use: never Substance use type: does not use Lack of Transportation: No Lack of Food: Never True Current Housing: I Have Housing Concerned About Future Housing: No Difficulty Paying Gas/Electric Bills: No Difficulty Paying for Meds: No Currently Unemployed: No Education: High School Diploma/GED Difficulty w/ Childcare or Family Care: No Living arrangements: with family Additional living arrangements comments: PT LIVES WITH DAUGHTER PIETRO Gender identity (if verbalized by the patient): Female Spiritual care concerns: No Meds Home Medications and Allergies Home Medications Medication Instructions Recorded Confirmed Type acetaminophen 650 mg tablet 650 mg PO Q4H PRN Pain (Scale 03/08/23 07/14/23 History Score 1-3) amlodipine 10 mg tablet 10 mg DAILY 03/08/23 07/14/23 History cholecalciferol (vitamin D3) 25 50 mcg PO DAILY 03/08/23 07/14/23 History mcg (1,000 unit) capsule (Vitamin D3) clobetasol 0.05 % topical cream 1 applic topical BID 03/08/23 07/14/23 History dicyclomine 10 mg capsule 10 mg PO QID 03/08/23 07/14/23 History famotidine 40 mg tablet 40 mg PO BID 03/08/23 07/14/23 History hydralazine 25 mg tablet 25 mg PO TID 03/08/23 07/14/23 History hydrocodone 10 mg-acetaminophen 1 tablet PO TID PRN Pain (Scale 03/08/23 07/14/23 History 325 mg tablet Score 4-6) levothyroxine 137 mcg tablet 137 mcg PO DAILY 03/08/23 07/14/23 History lisinopril 20 mg tablet 20 mg PO BID 03/08/23 07/14/23 History nitroglycerin 400 mcg/spray 1 spray translingual ONCE 03/08/23 07/14/23 History translingual aerosol nystatin 100,000 unit/gram topical 1 applic topical BID 03/08/23 07/14/23 History cream simvastatin 40 mg tablet 40 mg PO DAILY 03/08/23 07/14/23 History tamsulosin 0.4 mg capsule 0.4 mg PO QAM #30 caps 03/15/23 07/14/23 Rx Allergies Allergy/AdvReac Type Severity Reaction Status Date / Time atorvastatin [From Lipitor] Allergy Muscle Pain Verified 03/25/23 11:37 celecoxib [From Celebrex] Allergy Hives Verified 03/25/23 11:37 cortisone Allergy Hives Verified 03/25/23 11:37 furosemide [From Lasix] Allergy Swelling Verified 03/25/23 11:37 latex Allergy Muscle Pain Verified 03/25/23 11:37 methylprednisolone Allergy Rash Verified 03/25/23 11:37 prednisone Allergy Hives Verified 07/14/23 10:49 Sulfa (Sulfonamide Allergy Hives Verified 03/25/23 11:37 Antibiotics) cephalexin [From Keflex] AdvReac Diarrhea Verified 03/25/23 11:37 ciprofloxacin [From Cipro] AdvReac Diarrhea Verified 03/25/23 11:37 Exam Narrative: No acute distress normal breathing abdomen soft Assessment and Plan Assessment and plan (1) Retention of urine, unspecified: Code(s): R33.9 - Retention of urine, unspecified Status: Acute Assess
--- NOTE | 2023-07-23 11:49 | WPDANESEPPF ---
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 Patient Data Age: 82 Gender: F Height: 1.63 m Weight: 69.54 kg Allergies Allergy/AdvReac Type Severity Reaction Status Date / Time atorvastatin [From Lipitor] Allergy Muscle Pain Verified 03/25/23 11:37 celecoxib [From Celebrex] Allergy Hives Verified 03/25/23 11:37 cortisone Allergy Hives Verified 03/25/23 11:37 furosemide [From Lasix] Allergy Swelling Verified 03/25/23 11:37 latex Allergy Muscle Pain Verified 03/25/23 11:37 methylprednisolone Allergy Rash Verified 03/25/23 11:37 prednisone Allergy Hives Verified 07/14/23 10:49 Sulfa (Sulfonamide Allergy Hives Verified 03/25/23 11:37 Antibiotics) cephalexin [From Keflex] AdvReac Diarrhea Verified 03/25/23 11:37 ciprofloxacin [From Cipro] AdvReac Diarrhea Verified 03/25/23 11:37 Home Medications Medication Instructions Recorded Confirmed Type acetaminophen 650 mg tablet 650 mg PO Q4H PRN Pain (Scale 03/08/23 07/14/23 History Score 1-3) amlodipine 10 mg tablet 10 mg DAILY 03/08/23 07/14/23 History cholecalciferol (vitamin D3) 25 50 mcg PO DAILY 03/08/23 07/14/23 History mcg (1,000 unit) capsule (Vitamin D3) clobetasol 0.05 % topical cream 1 applic topical BID 03/08/23 07/14/23 History dicyclomine 10 mg capsule 10 mg PO QID 03/08/23 07/14/23 History famotidine 40 mg tablet 40 mg PO BID 03/08/23 07/14/23 History hydralazine 25 mg tablet 25 mg PO TID 03/08/23 07/14/23 History hydrocodone 10 mg-acetaminophen 1 tablet PO TID PRN Pain (Scale 03/08/23 07/14/23 History 325 mg tablet Score 4-6) levothyroxine 137 mcg tablet 137 mcg PO DAILY 03/08/23 07/14/23 History lisinopril 20 mg tablet 20 mg PO BID 03/08/23 07/14/23 History nitroglycerin 400 mcg/spray 1 spray translingual ONCE 03/08/23 07/14/23 History translingual aerosol nystatin 100,000 unit/gram topical 1 applic topical BID 03/08/23 07/14/23 History cream simvastatin 40 mg tablet 40 mg PO DAILY 03/08/23 07/14/23 History tamsulosin 0.4 mg capsule 0.4 mg PO QAM #30 caps 03/15/23 07/14/23 Rx Patient hx anesthesia problems: none Family hx anesthesia problems: none Results Review: All pre-operative results and documents have been reviewed as part of the pre-operative evaluation. [facility] Past Medical History Medical History (Updated 07/24/23 @ 10:55 by Dago Back DO) CAD (coronary artery disease) Chronic, continuous use of opioids Dyslipidemia Gastroesophageal reflux disease Hypertension Hypothyroidism Surgical History Surgical History (Updated 07/24/23 @ 10:55 by Dago Back DO) History of appendectomy History of cholecystectomy History of coronary artery stent placement x1 History of hysterectomy Family History Family History Other Hypertension Social History Social History Social History: Surrogate medical decision maker: Nohemy Cabrajal, daughter. Code status: Full code. Smoking status: Former smoker Second hand tobacco smoke exposure: No Additional smoking assessment comments: DAUGHTER UNKNOWN TO DAUGHTER - STATES NO SMOKING IN PAST 40 YRS Alcohol intake: never Substance use: never Substance use type: does not use Lack of Transportation: No Lack of Food: Never True Current Housing: I Have Housing Concerned About Future Housing: No Difficulty Paying Gas/Electric Bills: No Difficulty Paying for Meds: No Currently Unemployed: No Education: High School Diploma/GED Difficulty w/ Childcare or Family Care: No Living arrangements: with family Additional living arrangements comments: PT LIVES WITH DAUGHTER PIETRO Iglesias jose
[2023-07-24] VITALS (10 sets, daily range): BP systolic 123–146; BP diastolic 51–63; PULSE 66–85; RESP 13–17; TEMP 36.2–36.9; O2SAT 98–100
[2023-07-24] MEDS: LACTATED RINGERS 1,000 ML 30 ML IV CONT ×2 (10:55→12:39)
--- NOTE | 2023-07-24 10:55 | WPDHPUPDATE1 ---
History and Physical Update Update Date/Time: 07/24/23 10:55 History and Physical has been reviewed, including an updated exam of the patient. There are NO changes in the patient's condition. Risks, benefits, and alternatives have been discussed and questions answered. Patient agrees to proceed with procedure.
[2023-07-24] MEDS: ceFAZolin 2 GM/D5W 50 ML 2 GM/50 ML BAG IVPB (11:22)
[2023-07-24] MEDS: LIDO 1%/EPINEPHRINE 1:100,000 20 ML VIAL 10 ML INFILTRATE (11:42)
--- NOTE | 2023-07-24 11:53 | W.PM.PROC2 ---
Procedure Note - Detailed Date of Procedure 07/24/23 Pre-op Diagnosis retention of urine anatonic neurgenic bladder Post-op Diagnosis Same Procedure Performed Cystoscopy with insertion of suprapubic catheter Surgeon Brendan Santoyo MD Anesthesia MAC and Local Indications This warm with urinary retention and atonic bladder. She has been living with a chronic indwelling catheter. She is here today for suprapubic tube placement. She is unable to self-catheterize. She understands risks of bleeding, infection, damage to the bowel surrounding organs, damage to the urinary tract, leakage around suprapubic tube or per urethra. Small risk of malignancy. She agrees to proceed Description of Procedure She was correctly identified. Informed consent obtained. She was brought into the operating room. She was given MAC anesthesia. Local was applied to the suprapubic area. Cystoscopy revealed a small capacity bladder. There was some catheter related cystitis. Ureteral orifices were normal. I filled the bladder and placed her in Trendelenburg. I entered the bladder at the dome with a finder needle. There is no sign of any injury to surrounding organs. A guidewire was placed. A small skin corry was made and the tract was dilated. A 16 Hungarian silicone catheter was placed over the wire. Again there is no sign of any injury to surrounding organs. The catheter was secured to the skin with 2 silk sutures. Was placed to gravity drainage. Dressing was applied. She was awakened transferred to PACU in stable condition Estimated Blood Loss 1 Disposition PACU
[2023-07-24] MEDS: fentaNYL CITRATE INJ (*CRX) 100 MCG/2 ML VIAL 25 MCG IV PUSH ×2 (12:09→12:15)
[2023-07-24] MEDS: HYDROcodone/acetaminophen (*CRX) 10-325 MG TABLET 1 TAB PO (14:11)
== END 2023-07-24 14:32 | disposition home or self-care (01) ==
PROVIDERS: Visit Provider Urology
PROC: 0T9B30Z Drainage of Bladder with Drainage Device, Percutaneous Approach (ICD-10-PCS; CPT 51102; principal; 2023-07-24 11:00)
DX: N31.2 Flaccid neuropathic bladder, not elsewhere classified (principal); R33.8 Other retention of urine; I10 Essential (primary) hypertension; E03.9 Hypothyroidism, unspecified; E78.5 Hyperlipidemia, unspecified; K21.9 Gastro-esophageal reflux disease without esophagitis; Z87.891 Personal history of nicotine dependence; Z95.5 Presence of coronary angioplasty implant and graft
CPT/HCPCS: 51040; A9270; C2627; J0690; J2405; J2704; J3010; J7030; J7120

== ENCOUNTER 2023-08-01 12:19 | Outpatient (CLI) | payer MEDICARE, SELFPAY ==
[2023-08-01 13:00] LABS: Anion Gap 9 mmol/L (8-16); Blood Urea Nitrogen 11 mg/dL (7-17); Calcium 9.1 mg/dL (8.4-10.2); Carbon Dioxide 29 mmol/L (22-30); Chloride 93 mmol/L (98-107); Estimated Glomerular Filt Rate > 60; Glucose 95 mg/dL (65-110); Phosphorus 4.4 mg/dL (2.5-4.5); Sodium 131 mmol/L (137-145)
== END 2023-08-01 12:20 | disposition home or self-care (01) ==
PROVIDERS: Visit Provider Internal Medicine Nephrology
DX: E87.1 Hypo-osmolality and hyponatremia (principal)
CPT/HCPCS: 36415; 80069

== ENCOUNTER 2023-09-10 17:38 | Emergency (ER) | payer MEDICARE, SELFPAY ==
[2023-09-10 17:58] VITALS: BP 106/53; PULSE 83; RESP 16; TEMP 36.6; O2SAT 100
[2023-09-10 18:09] VITALS: BP 106/53; PULSE 83; RESP 16; TEMP 36.6; O2SAT 100
--- NOTE | 2023-09-10 18:30 | ED.GENADULT ---
HPI - General Adult General Chief complaint: Skin/Abscess/Foreign Body Stated complaint: RASH Time Seen by Provider: 09/10/23 18:30 Source: patient, RN notes reviewed and old records reviewed Mode of arrival: ambulatory Limitations: no limitations History of Present Illness HPI narrative: 82-year-old female presents to the [facility] with a rash that has been intermittently painful since Thursday, 4 days. States that started as blisters. Starts lower ribs right side wraps around to the back and stops right at the spine. Patchy red scabbed over areas noted Onset (ago): day(s) (4) Related Data Home Medications Medication Instructions Recorded Confirmed acetaminophen 650 mg tablet 650 mg PO Q4H PRN Pain (Scale 03/08/23 09/10/23 Score 1-3) amlodipine 10 mg tablet 10 mg DAILY 03/08/23 09/10/23 cholecalciferol (vitamin D3) 25 50 mcg PO DAILY 03/08/23 09/10/23 mcg (1,000 unit) capsule (Vitamin D3) clobetasol 0.05 % topical cream 1 applic topical BID 03/08/23 09/10/23 dicyclomine 10 mg capsule 10 mg PO QID 03/08/23 09/10/23 famotidine 40 mg tablet 40 mg PO BID 03/08/23 09/10/23 hydrocodone 10 mg-acetaminophen 1 tablet PO TID PRN Pain (Scale 03/08/23 09/10/23 325 mg tablet Score 4-6) levothyroxine 137 mcg tablet 137 mcg PO DAILY 03/08/23 09/10/23 nitroglycerin 400 mcg/spray 1 spray translingual ONCE 03/08/23 09/10/23 translingual aerosol nystatin 100,000 unit/gram topical 1 applic topical BID 03/08/23 09/10/23 cream Allergies Allergy/AdvReac Type Severity Reaction Status Date / Time atorvastatin [From Lipitor] Allergy Muscle Pain Verified 08/11/23 15:56 celecoxib [From Celebrex] Allergy Hives Verified 08/11/23 15:56 cortisone Allergy Hives Verified 08/11/23 15:56 furosemide [From Lasix] Allergy Swelling Verified 08/11/23 15:56 latex Allergy Muscle Pain Verified 08/11/23 15:56 methylprednisolone Allergy Rash Verified 08/11/23 15:56 prednisone Allergy Hives Verified 08/11/23 15:56 Sulfa (Sulfonamide Allergy Hives Verified 08/11/23 15:56 Antibiotics) cephalexin [From Keflex] AdvReac Diarrhea Verified 08/11/23 15:56 ciprofloxacin [From Cipro] AdvReac Diarrhea Verified 08/11/23 15:56 Review of Systems Review of Systems: All systems reviewed & are unremarkable except as noted in HPI and below Constitutional: Constitutional: Reports no additional constitutional complaints Eyes: Eyes: Reports no additional eye complaints ENT: Reports system reviewed and no additional complaints, except as documented Cardiovascular: Cardiovascular: Reports no additional cardiovascular complaints, Denies chest pain and Denies dyspnea Respiratory: Respiratory: Reports no additional respiratory complaints, Denies chest congestion, Denies cough and Denies dyspnea Gastrointestinal: Gastrointestinal: Reports no additional gastrointestinal complaints, Denies abdominal pain, Denies nausea and Denies vomiting Musculoskeletal: Musculoskeletal: Reports no additional musculoskeletal complaints Integumentary/Breasts: Skin/Breast: Reports as per HPI and Reports rash Neurologic: Reports system reviewed and no additional complaints, except as documented Psychiatric: Psychiatric: Reports no additional psychiatric complaints Allergic/Immunologic: Allergic/Immunologic: Reports no additional allergic/immunologic complaints PMFSH Past Medical History Medical History CAD (coronary artery disease) Chronic, continuous use of opioids Dyslipidemia Gastroesophageal reflux disease Hypertension Hypothyroidism Surgical History Surgical History History of appendectomy History of cholecystectomy History of coronary artery stent placement x1 History of hysterectomy Family History Family History Other Hypertension Social History Social History (Reviewed 09/10/23 @
== END 2023-09-10 18:54 | disposition home or self-care (01) ==
PROVIDERS: Emergency Provider Nurse Practitioner
DX: B02.9 Zoster without complications (principal); Z87.891 Personal history of nicotine dependence; E78.5 Hyperlipidemia, unspecified; K21.9 Gastro-esophageal reflux disease without esophagitis; I10 Essential (primary) hypertension; E03.9 Hypothyroidism, unspecified; I25.10 Atherosclerotic heart disease of native coronary artery without angina pectoris; Z95.5 Presence of coronary angioplasty implant and graft
CPT/HCPCS: 99213; G0463

== ENCOUNTER 2023-10-03 10:49 | Outpatient (CLI) | payer MEDICARE, SELFPAY ==
[2023-10-03 11:54] LABS: Potassium 3.5 mmol/L (3.4-5.0)
[2023-10-03 11:59] LABS: Albumin Level 4.3 g/dL (3.5-5.1); Anion Gap 11 mmol/L (8-16); Blood Urea Nitrogen 10 mg/dL (7-17); Calcium 9.3 mg/dL (8.4-10.2); Carbon Dioxide 25 mmol/L (22-30); Chloride 95 mmol/L (98-107); Estimated Glomerular Filt Rate > 60; Glucose 148 mg/dL (65-110); Phosphorus 3.9 mg/dL (2.5-4.5); Sodium 131 mmol/L (137-145)
== END 2023-10-03 10:50 | disposition home or self-care (01) ==
LOC: ANHLAB 10:51
PROVIDERS: Visit Provider Internal Medicine Nephrology
DX: E87.1 Hypo-osmolality and hyponatremia (principal)
CPT/HCPCS: 36415; 80069

== ENCOUNTER 2023-10-25 19:53 | Emergency (ER) | payer MEDICARE, SELFPAY ==
[2023-10-25 20:00] VITALS: BP 148/59; PULSE 72; RESP 16; TEMP 36.7; O2SAT 99
[2023-10-25 20:59] LABS: Appearance Urine Cloudy (Clear); Bacteria Urine 4+ /hpf; Bilirubin Urine Negative (Negative); Blood Urine 1+ (Negative); Color Urine Yellow (Yellow); Glucose Urine UA Negative (Negative); Ketones Urine Negative (Negative); Leukocyte Esterase Ur 3+ LEU/UL (Negative); Need Manual Microscopic Reviewed; Nitrate Urine Negative (Negative); Protein Urine 1+ mg/dL (Negative); Specific Grav Ur 1.011 (1.001-1.035); Squamous Epithelial Cell Urine None seen /hpf (Few); Urobilinogen Urine 0.2 mg/dL (<2.0); WBC Urine >100 /hpf; pH Urine 6.5 (5.0-9.0)
[2023-10-25 21:11] LABS: Add Urine Microscopic? YES
--- NOTE | 2023-10-25 21:12 | ED.FEMALEGU ---
HPI - Female Genitourinary General Chief complaint: Urogenital-Female Stated complaint: suprapubic cath complications Time Seen by Provider: 10/25/23 20:47 History of Present Illness HPI Narrative: 82-year-old female who reports with her daughter at bedside for concern for a clogged suprapubic catheter. Patient's daughter assists with the history. The patient has had a suprapubic catheter since July 24, 2023 because her bladder does not work anymore . She presents to our urologist office every month to have the suprapubic catheter changed. It was last changed October 20, 2023. Her urologist is Dr. Santoyo. patient's daughter states the patient has drained approximately 800 cc of urine throughout the day. Around 5:30 p.m. tonight, she laid down and noticed that she was not draining anymore urine but had wet her depends. She change her depends and again with another 1 which prompted them to come to the ED for further evaluation. Patient's daughter states that Put the patient's current depends on at 7:00 p.m. today and it has remained dry. She denies abdominal pain, fever, nausea or vomiting, flank pain, dysuria or hematuria. patient's daughter states she has noticed a small amount of discharge around the catheter state and called the patient's urologist office. They advised that this is abnormal and to keep the area clean and dry. Related Data Home Medications Medication Instructions Recorded Confirmed acetaminophen 650 mg tablet 650 mg PO Q4H PRN Pain (Scale 03/08/23 09/10/23 Score 1-3) amlodipine 10 mg tablet 10 mg DAILY 03/08/23 09/10/23 cholecalciferol (vitamin D3) 25 50 mcg PO DAILY 03/08/23 09/10/23 mcg (1,000 unit) capsule (Vitamin D3) clobetasol 0.05 % topical cream 1 applic topical BID 03/08/23 09/10/23 dicyclomine 10 mg capsule 10 mg PO QID 03/08/23 09/10/23 famotidine 40 mg tablet 40 mg PO BID 03/08/23 09/10/23 hydrocodone 10 mg-acetaminophen 1 tablet PO TID PRN Pain (Scale 03/08/23 09/10/23 325 mg tablet Score 4-6) levothyroxine 137 mcg tablet 137 mcg PO DAILY 03/08/23 09/10/23 nitroglycerin 400 mcg/spray 1 spray translingual ONCE 03/08/23 09/10/23 translingual aerosol nystatin 100,000 unit/gram topical 1 applic topical BID 03/08/23 09/10/23 cream Allergies Allergy/AdvReac Type Severity Reaction Status Date / Time atorvastatin [From Lipitor] Allergy Muscle Pain Verified 08/11/23 15:56 celecoxib [From Celebrex] Allergy Hives Verified 08/11/23 15:56 cortisone Allergy Hives Verified 08/11/23 15:56 furosemide [From Lasix] Allergy Swelling Verified 08/11/23 15:56 latex Allergy Muscle Pain Verified 08/11/23 15:56 methylprednisolone Allergy Rash Verified 08/11/23 15:56 prednisone Allergy Hives Verified 08/11/23 15:56 Sulfa (Sulfonamide Allergy Hives Verified 08/11/23 15:56 Antibiotics) cephalexin [From Keflex] AdvReac Diarrhea Verified 08/11/23 15:56 ciprofloxacin [From Cipro] AdvReac Diarrhea Verified 08/11/23 15:56 Review of Systems Review of Systems: CONSTITUTIONAL: Denies fever, chills, or sweats. EYES: Denies visual changes, redness, or discharge. ENT: Denies rhinorrhea, congestion, sore throat, or otalgia. CARDIOVASCULAR: Denies chest pain, palpitations, or edema. RESPIRATORY: Denies cough or dyspnea. GASTROINTESTINAL: Denies abdominal pain, nausea, vomiting, or diarrhea. GENITOURINARY: See HPI SKIN: Denies rash or itching. MUSCULOSKELETAL: Denies back pain, joint pain, or myalgia. NEUROLOGIC: Denies headache, numbness, or weakness. PSYCHIATRIC: Denies anxiety or depression. [facility] Past Medical History Medical History CAD (coronary artery disease) Chronic, continuous use of opioids Dyslipidemia Gastroesophageal reflux disease Hypertension Hypothyroidism Surgical History Surgical History History of appendectomy History of cholecystectomy History o
== END 2023-10-25 22:32 | disposition home or self-care (01) ==
PROVIDERS: Emergency Medicine; Emergency Provider Physician Assistant
DX: Z43.5 Encounter for attention to cystostomy (principal); R82.998 Other abnormal findings in urine; I25.10 Atherosclerotic heart disease of native coronary artery without angina pectoris; I10 Essential (primary) hypertension; E78.5 Hyperlipidemia, unspecified; E03.9 Hypothyroidism, unspecified; K21.9 Gastro-esophageal reflux disease without esophagitis; Z95.5 Presence of coronary angioplasty implant and graft; Z87.891 Personal history of nicotine dependence; Z90.49 Acquired absence of other specified parts of digestive tract; Z90.710 Acquired absence of both cervix and uterus
CPT/HCPCS: 81001; 87077; 87086; 87186; 99283

== ENCOUNTER 2023-11-27 14:18 | Outpatient (CLI) | payer MEDICARE, SELFPAY ==
[2023-11-27 15:44] LABS: Albumin Level 4.5 g/dL (3.5-5.1); Anion Gap 10 mmol/L (8-16); Blood Urea Nitrogen 12 mg/dL (7-17); Calcium 9.1 mg/dL (8.4-10.2); Carbon Dioxide 27 mmol/L (22-30); Chloride 95 mmol/L (98-107); Estimated Glomerular Filt Rate > 60; Glucose 85 mg/dL (65-110); Potassium 3.9 mmol/L (3.4-5.0); Sodium 132 mmol/L (137-145)
== END 2023-11-27 14:19 | disposition home or self-care (01) ==
LOC: ANHLAB 14:20
PROVIDERS: Visit Provider Internal Medicine Nephrology
DX: E87.1 Hypo-osmolality and hyponatremia (principal)
CPT/HCPCS: 36415; 80069

== ENCOUNTER 2024-02-28 18:08 | Emergency (ER) | payer MEDICARE, SELFPAY ==
[2024-02-28 18:10] VITALS: BP 152/64; PULSE 74; RESP 18; TEMP 36.5; O2SAT 100
--- NOTE | 2024-02-28 18:28 | ED.GENADULT ---
HPI - General Adult General Chief complaint: Unspecified Stated complaint: supra pubic cath came out Time Seen by Provider: 02/28/24 18:19 Source: patient Mode of arrival: ambulatory Limitations: no limitations History of Present Illness HPI narrative: this is a an 83-year-old female who presents to the ED with chief complaint suprapubic catheter out of place. Patient is here with family who reports the catheter has been out for no more than 1 hour. Family member states that she accidentally drained the catheter cuff and this caused the catheter to fall out. Denies any other complaints or symptoms. History of suprapubic catheter due to neurogenic bladder. Related Data Home Medications Medication Instructions Recorded Confirmed acetaminophen 650 mg tablet 650 mg PO Q4H PRN Pain (Scale 03/08/23 09/10/23 Score 1-3) amlodipine 10 mg tablet 10 mg DAILY 03/08/23 09/10/23 cholecalciferol (vitamin D3) 25 50 mcg PO DAILY 03/08/23 09/10/23 mcg (1,000 unit) capsule (Vitamin D3) clobetasol 0.05 % topical cream 1 applic topical BID 03/08/23 09/10/23 dicyclomine 10 mg capsule 10 mg PO QID 03/08/23 09/10/23 famotidine 40 mg tablet 40 mg PO BID 03/08/23 09/10/23 hydrocodone 10 mg-acetaminophen 1 tablet PO TID PRN Pain (Scale 03/08/23 09/10/23 325 mg tablet Score 4-6) levothyroxine 137 mcg tablet 137 mcg PO DAILY 03/08/23 09/10/23 nitroglycerin 400 mcg/spray 1 spray translingual ONCE 03/08/23 09/10/23 translingual aerosol nystatin 100,000 unit/gram topical 1 applic topical BID 03/08/23 09/10/23 cream Allergies Allergy/AdvReac Type Severity Reaction Status Date / Time atorvastatin [From Lipitor] Allergy Muscle Pain Verified 02/28/24 18:40 celecoxib [From Celebrex] Allergy Hives Verified 02/28/24 18:40 cortisone Allergy Hives Verified 02/28/24 18:40 furosemide [From Lasix] Allergy Swelling Verified 02/28/24 18:40 latex Allergy Muscle Pain Verified 02/28/24 18:40 methylprednisolone Allergy Rash Verified 02/28/24 18:40 prednisone Allergy Hives Verified 02/28/24 18:40 Sulfa (Sulfonamide Allergy Hives Verified 02/28/24 18:40 Antibiotics) cephalexin [From Keflex] AdvReac Diarrhea Verified 02/28/24 18:40 ciprofloxacin [From Cipro] AdvReac Diarrhea Verified 02/28/24 18:40 Review of Systems Review of Systems: All systems as dictated in [facility] Past Medical History Medical History CAD (coronary artery disease) Chronic, continuous use of opioids Dyslipidemia Gastroesophageal reflux disease Hypertension Hypothyroidism Surgical History Surgical History History of appendectomy History of cholecystectomy History of coronary artery stent placement x1 History of hysterectomy Family History Family History Other Hypertension Social History Social History Social History: Surrogate medical decision maker: Nohemy Carbajal, daughter. Code status: Full code. Smoking status: Former smoker Second hand tobacco smoke exposure: No Additional smoking assessment comments: DAUGHTER UNKNOWN TO DAUGHTER - STATES NO SMOKING IN PAST 40 YRS Alcohol intake: never Substance use: never Substance use type: does not use Lack of Transportation: No Lack of Food: Never True Current Housing: I Have Housing Concerned About Future Housing: No Difficulty Paying Gas/Electric Bills: No Difficulty Paying for Meds: No Currently Unemployed: No Education: High School Diploma/GED Difficulty w/ Childcare or Family Care: No Living arrangements: with family Additional living arrangements comments: PT LIVES WITH DAUGHTER PIETRO Gender identity (if verbalized by the patient): Female Spiritual care concerns: No Exam Narrative: GENERAL: Well-appearing, well-no
== END 2024-02-28 19:20 | disposition home or self-care (01) ==
PROVIDERS: Emergency Provider Physician Assistant
DX: T83.028A Displacement of other urinary catheter, initial encounter (principal); I25.10 Atherosclerotic heart disease of native coronary artery without angina pectoris; E78.5 Hyperlipidemia, unspecified; K21.9 Gastro-esophageal reflux disease without esophagitis; I10 Essential (primary) hypertension; E03.9 Hypothyroidism, unspecified; Z87.891 Personal history of nicotine dependence
CPT/HCPCS: 51702; 99283

== ENCOUNTER 2024-04-02 11:29 | Emergency (ER) | payer MEDICARE, SELFPAY ==
[2024-04-02 11:31] VITALS: BP 141/53; PULSE 79; RESP 18; TEMP 36.2; O2SAT 100
--- NOTE | 2024-04-02 11:47 | ED.FEMALEGU ---
HPI - Female Genitourinary General Chief complaint: Urogenital-Female Stated complaint: suprapubic fell out Time Seen by Provider: 04/02/24 11:42 History of Present Illness HPI Narrative: 83-year-old female presented to the emergency department for evaluation of a dislodged Jauregui catheter. Related Data Home Medications Medication Instructions Recorded Confirmed acetaminophen 650 mg tablet 650 mg PO Q4H PRN Pain (Scale 03/08/23 03/08/24 Score 1-3) amlodipine 10 mg tablet 10 mg DAILY 03/08/23 03/08/24 cholecalciferol (vitamin D3) 25 50 mcg PO DAILY 03/08/23 03/08/24 mcg (1,000 unit) capsule (Vitamin D3) clobetasol 0.05 % topical cream 1 applic topical BID 03/08/23 03/08/24 dicyclomine 10 mg capsule 10 mg PO QID 03/08/23 03/08/24 famotidine 40 mg tablet 40 mg PO BID 03/08/23 03/08/24 hydrocodone 10 mg-acetaminophen 1 tablet PO TID PRN Pain (Scale 03/08/23 03/08/24 325 mg tablet Score 4-6) levothyroxine 137 mcg tablet 137 mcg PO DAILY 03/08/23 03/08/24 nitroglycerin 400 mcg/spray 1 spray translingual ONCE 03/08/23 03/08/24 translingual aerosol nystatin 100,000 unit/gram topical 1 applic topical BID 03/08/23 03/08/24 cream Allergies Allergy/AdvReac Type Severity Reaction Status Date / Time atorvastatin [From Lipitor] Allergy Muscle Pain Verified 04/02/24 11:31 celecoxib [From Celebrex] Allergy Hives Verified 04/02/24 11:31 cortisone Allergy Hives Verified 04/02/24 11:31 furosemide [From Lasix] Allergy Swelling Verified 04/02/24 11:31 latex Allergy Muscle Pain Verified 04/02/24 11:31 methylprednisolone Allergy Rash Verified 04/02/24 11:31 prednisone Allergy Hives Verified 04/02/24 11:31 Sulfa (Sulfonamide Allergy Hives Verified 04/02/24 11:31 Antibiotics) cephalexin [From Keflex] AdvReac Diarrhea Verified 04/02/24 11:31 ciprofloxacin [From Cipro] AdvReac Diarrhea Verified 04/02/24 11:31 Review of Systems Review of Systems: All systems reviewed & are unremarkable except as noted in HPI and below PMFSH Past Medical History Medical History CAD (coronary artery disease) Chronic, continuous use of opioids Dyslipidemia Gastroesophageal reflux disease Hypertension Hypothyroidism Surgical History Surgical History History of appendectomy History of cholecystectomy History of coronary artery stent placement x1 History of hysterectomy Family History Family History Other Hypertension Social History Social History (Updated 03/08/24 @ 16:31 by Christina Ruano MA) Social History: Surrogate medical decision maker: Nohemy Carbajal, daughter. Code status: Full code. Smoking status: Former smoker Second hand tobacco smoke exposure: No Additional smoking assessment comments: DAUGHTER UNKNOWN TO DAUGHTER - STATES NO SMOKING IN PAST 40 YRS Alcohol intake: never Substance use: never Substance use type: does not use Do You Feel Safe in your Home?: Yes Lack of Transportation: No Lack of Food: Never True Current Housing: I Have Housing Concerned About Future Housing: No Difficulty Paying Gas/Electric Bills: No Difficulty Paying for Meds: No Currently Unemployed: No Education: High School Diploma/GED Difficulty w/ Childcare or Family Care: No Living arrangements: with family Additional living arrangements comments: PT LIVES WITH DAUGHTER PIETRO Gender identity (if verbalized by the patient): Female Spiritual care concerns: No Exam Narrative: APPEARANCE: Well appearing, no pain, no distress, well-nourished. HEAD: normocephalic, atraumatic. EYES: PERRLA/EOMI, conjunctivae clear. NOSE: Normal no drainage EARS:TMS clear with good light reflex. THROAT: Pharynx clear, no exudate. NECK: Supple. No adenopathy, no masses. RESPIRATORY: Airway patent, respirations nonlabored. Clear to a
--- NOTE | 2024-04-21 10:08 | PC.NURSE ---
LATE ENTRY This note is being entered to document information to the patient's record. The following information was omitted on [04/02/24], by [Dr. Alexandre]. VORB for suprapubic stock to be placed. Was placed by JAYLON.
== END 2024-04-02 12:25 | disposition home or self-care (01) ==
PROVIDERS: Emergency Provider Emergency Medicine
DX: T83.020A Displacement of cystostomy catheter, initial encounter (principal); I10 Essential (primary) hypertension; I25.10 Atherosclerotic heart disease of native coronary artery without angina pectoris; E78.5 Hyperlipidemia, unspecified; E03.9 Hypothyroidism, unspecified; K21.9 Gastro-esophageal reflux disease without esophagitis; Z95.5 Presence of coronary angioplasty implant and graft; Z87.891 Personal history of nicotine dependence; Z90.49 Acquired absence of other specified parts of digestive tract; Z90.710 Acquired absence of both cervix and uterus; Y84.6 Urinary catheterization as the cause of abnormal reaction of the patient, or of later complication, without mention of misadventure at the time of the procedure
CPT/HCPCS: 51702; 51705; 99283

== ENCOUNTER 2024-09-02 08:59 | Outpatient (CLI) | payer MEDICARE, SELFPAY ==
[2024-09-02 09:45] LABS: Albumin Level 4.3 g/dL (3.5-5.1); Anion Gap 9 mmol/L (4-12); Blood Urea Nitrogen 14 mg/dL (7-17); Calcium 9.2 mg/dL (8.4-10.2); Carbon Dioxide 29 mmol/L (22-30); Chloride 98 mmol/L (98-107); Estimated Glomerular Filt Rate > 60; Glucose 84 mg/dL (65-110); Potassium 4.2 mmol/L (3.4-5.0); Sodium 136 mmol/L (137-145)
== END 2024-09-02 09:00 | disposition home or self-care (01) ==
PROVIDERS: Visit Provider Internal Medicine Nephrology
DX: E87.1 Hypo-osmolality and hyponatremia (principal)
CPT/HCPCS: 36415; 80069